=== PATIENT | female | born 1935 | race Caucasian/White ===

== ENCOUNTER 2017-03-23 14:50 | Inpatient (IN) | payer MEDICARE, BC ==
[2017-03-23] MEDS ORDERED: Sodium Chloride 0.9% 10 ML Syringe FLUSH PRN (15:56)
[2017-03-23] MEDS ORDERED: Sodium Chloride 0.9% 1,000 ML IV SCH (16:00)
--- NOTE | 2017-03-23 16:05 | EDM.PDOC ---
ED HPI GENERAL MEDICAL PROBLEM - General Chief Complaint: General Stated Complaint: MEDICAL Time Seen by Provider: 03/23/17 15:45 Source of Information: Reports: Patient, Family History Limitations: Reports: Altered Mental Status - History of Present Illness INITIAL COMMENTS - FREE TEXT/NARRATIVE: Anitha is an 82 year old female with a hx of dementia who presents to the ED today with her daughter for evaluation of decreased alertness and difficulty with ambulation and frequent falls. Patient resides in a memory care unit and is typically able to ambulate without any difficulty. Patient has fallen now 3 times since yesterday. Patient slid to ground from her recliner yesterday onto her knees, she then was found on the ground later yesterday and this morning. Uncertain what happened and patient cannot give a history or details of what happened. Patients shows no sign of trauma other than a knee abrasion on left. Patient is much more non-verbal than normal today. She had a fever of 101 yesterday but none reported this morning. Patient per her daughter seems uncertain as to how to ambulate, is not willing to put one foot in front of the other since last night. No cough/URI symptoms. No vomiting/diarrhea. Patient is DNR/DNI per her daughter. Duration: Day(s): (1) - Related Data Allergies Allergy/AdvReac Type Severity Reaction Status Date / Time No Known Allergies Allergy Verified 03/23/17 15:17 Home Meds: Home Meds Acetaminophen [Acetaminophen] 650 mg PO TID 03/23/17 [History] Alum Hydrox/Mag Hydrox/Simeth [Maalox Advanced] 15 ml PO Q6H PRN 03/23/17 [ History] Bimatoprost [LUMIGAN 0.01% Ophth Soln] 1 drop EYEBOTH BEDTIME 03/23/17 [History] Cyanocobalamin (Vitamin B-12) [Vitamin B-12] 1,000 mcg SL DAILY 03/23/17 [ History] DULoxetine [Cymbalta] 30 mg PO BEDTIME 03/23/17 [History] Donepezil HCl 10 mg PO BEDTIME 03/23/17 [History] Ferrous Sulfate [Ferrous Sulfate] 325 mg PO DAILY 03/23/17 [History] Folic Acid [Folic Acid] 1 mg PO DAILY 03/23/17 [History] Gabapentin [Neurontin] 300 mg PO BID 03/23/17 [History] Lactose-Reduced Food [Ensure] 1 can PO BID 03/23/17 [History] Magnesium Hydroxide [Milk of Magnesia] 15 ml PO DAILY PRN 03/23/17 [History] Memantine [Namenda] 10 mg PO BID 03/23/17 [History] Mirtazapine [Mirtazapine] 15 mg PO BEDTIME 03/23/17 [History] NIFEdipine [Adalat cc] 60 mg PO DAILY 03/23/17 [History] Naproxen Sodium 220 mg PO BID 03/23/17 [History] OLANZapine [Olanzapine] 5 mg PO BEDTIME 03/23/17 [History] Polyethylene Glycol 3350 [MiraLAX] 17 gm PO DAILY PRN 03/23/17 [History] Triamcinolone Acetonide [Triamcinolone Acetonide 0.1% Crm] 1 gm TOP BID PRN [History] traZODone HCl [Trazodone HCl] 50 mg PO BEDTIME PRN 03/23/17 [History] Past Medical History Gastrointestinal History: Reports: GERD Musculoskeletal History: Reports: Back Pain, Chronic, Osteoarthritis 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, CVA, TIA - Past Surgical History GI Surgical History: Reports: Cholecystectomy Female Surgical History: Reports: Hysterectomy Social & Family History - Tobacco Use Smoking Status *Q: Never Smoker ED ROS GENERAL - Review of Systems Review Of Systems: See Below Constitutional: Reports: Weakness HEENT: Reports: No Symptoms Respiratory: Reports: No Symptoms Cardiovascular: Reports: No Symptoms Endocrine: Reports: No Symptoms GI/Abdominal: Reports: No Symptoms : Reports: No Symptoms Musculoskeletal: Reports: No Symptoms Skin: Reports: Other (knee abrasion) Neurological: Reports: Difficulty Walking, Gait Disturbance Psychiatric: Reports: Other (worsening confusion) Hematologic/Lymphatic: Reports: No Symptoms ED EXAM, GENERAL - Physical Exam Exam: See Below Exam Limited By: Other (Dementia) Eye Exam: Bilateral Eye: EOMI, PERRL Ears: Normal External Exam, Normal TMs Throat/Mouth: Normal Oropharynx Head: Atraumatic Neck: Normal Inspection, Supple, Non-Tender Respiratory/Chest: No Respiratory Distress, Lungs Clear Cardiovascular: Regular Rate, Rhythm, No Murmur GI/Abdominal: Normal Bowel Sounds, Soft, Non-Tender (Female) Exam: Deferred Rectal (Female) Exam: Deferred Back Exam: Other (severe scoliosis/kyphosis) Neurological: Alert, Confused, Abnormal Gait, Other (not able to lift right lef off of bed when asked. No arm drift, able to raise left leg. No facial droop) Skin Exam: Other (2 cm abrasion to left knee) Lymphatic: No Adenopathy EKG INTERPRETATION EKG Date: 03/23/17 Time: 16:20 Rhythm: NSR [place]: LAD-Left [place] Deviation P-Wave: Present QRS: Normal ST-T: Normal QT: Normal Course - Vital Signs Text/Narrative:: Anitha is an 82 year old female with a hx of dementia who presents to the ED today with her daughter for evaluation of increased difficulty with ambulation, fever yesterday, and increased confusion. Please refer to HPI and focused exam. Patient on exam here is well hydrated, she is pale. She has no signs of significant trauma, small abrasion to left knee. No grimacing with pelvic rock or extremity/back exam. Concerns for sepsis given hx of fever here although on arrival afebrile and normotensive. CVA on differential as well given difficulty with ambulation. Gross NIH is 0, patient difficult to examine overall. PIV established and patient was given 1 liter NS followed by 125 ml/ hr. CT scan of head obtained which is negative for any acute intracranial abnormality. CXR obtained to rule out infiltrate although unlikely given lack of URI symptoms and is negative. CBC returns with WBC of 29 with a left shift. HGB stable at 10.6. CMP returns with sodium of 139, potassium of 3.5, mildly elevated creatinine of 1.2, and glucose of 131. EKG is negative for any acute ischemic findings. Troponin undetectable. Cath UA returns positive for infection, UC pending. Will treat with IV Rocephin. This may be causing patient 's symptoms, we will admit her and continue to monitor her status. Patient is DNR/DNI. Dr. Amaro, hospitalist notified of patient and will be down to assess and write admission orders. Patient will be admitted in stable condition. Knee xray was negative for fracture (left). Last Recorded V/S: Last Vital Signs Temp 37.7 C 03/23/17 15:32 Pulse 86 03/23/17 17:08 Resp 18 03/23/17 17:08 BP 112/61 03/23/17 17:08 Pulse Ox 98 03/23/17 17:08 - Orders/Labs/Meds Orders: Active Orders 24 hr Category Date Time Status Patient Status Manage Transfer [TRANSFER] Routine ADT 03/23/17 17:54 Active EKG Documentation Completion [RC] ASDIRECTED Care 03/23/17 15:59 Active Peripheral IV Care [RC] . DIRECTED Care 03/23/17 15:56 Active Chest 1V Frontal [CR] Stat Exams 03/23/17 15:58 Taken Head wo Cont [CT] Stat Exams 03/23/17 15:57 Taken Knee 3V Lt [CR] Stat Exams 03/23/17 15:58 Taken CULTURE URINE [RM] Stat Lab 03/23/17 16:30 Received Sodium Chloride 0.9% [Normal Saline] 1,000 ml Med 03/23/17 16:00 Active IV ASDIRECTED Sodium Chloride 0.9% [Saline Flush] Med 03/23/17 15:56 Active 10 ml FLUSH ASDIRECTED PRN Peripheral IV Insertion Adult [OM.PC] Routine Oth 03/23/17 15:56 Ordered Resuscitation Status Routine Resus Stat 03/23/17 17:56 Ordered EKG 12 Lead [EK] Stat Ther 03/23/17 15:59 Ordered Medication Orders Sodium Chloride (Normal Saline) 1,000 mls @ 125 mls/hr IV ASDIRECTED JA Sodium Chloride (Saline Flush) 10 ml FLUSH ASDIRECTED PRN PRN Reason: Keep Vein Open Last Admin: 03/23/17 17:34 Dose: 10 ml Labs: Laboratory Tests 03/23/17 03/23/17 03/23/17 Range/Units 16:14 16:14 16:14 WBC 29.0 H (4.5-11.0) K/uL RBC 3.60 (3.30-5.50) M/uL Hgb 10.6 L (12.0-15.0) g/dL Hct 32.6 L (36.0-48.0) % MCV 91 (80-98) fL MCH 29 (27-31) pg MCHC 33 (32-36) % Plt Count 455 H (150-400) K/uL Neut % (Auto) 84 H (36-66) % Lymph % (Auto) 6 L (24-44) % [place] % (Auto) 10 H (2-6) % Eos % (Auto) 0 L (2-4) % Baso % (Auto) 0 (0-1) % Sodium 139 L (140-148) mmol/L Potassium 3.5 L (3.6-5.2) mmol/L Chloride 101 (100-108) mmol/L Carbon Dioxide 30 (21-32) mmol/L Anion Gap 11.5 (5.0-14.0) mmol/L BUN 16 D (7-18) mg/dL Creatinine 1.2 H (0.6-1.0) mg/dL Est Cr Clr Drug Dosing 32.29 mL/min Estimated GFR (MDRD) 43 L (>60) Glucose 131 H (74-106) mg/dL Lactic Acid 1.9 (0.4-2.0) mmol/L Calcium 8.6 (8.5-10.1) mg/dL Total Bilirubin 0.2 (0.2-1.0) mg/dL AST 21 (15-37) U/L ALT 21 (12-78) U/L Alkaline Phosphatase 100 (46-116) U/L Troponin I (0.000-0.056) ng/mL Total Protein 6.8 (6.4-8.2) g/dL Albumin 2.6 L (3.4-5.0) g/dL Globulin 4.2 H (2.3-3.5) g/dL Albumin/Globulin Ratio 0.6 L (1.2-2.2) Urine Color Urine Appearance Urine pH (4.5-8.0) Ur Specific [place] (1.008-1.030) Urine Protein (NEGATIVE) mg/dL Urine Glucose (UA) (NEGATIVE) mg/dL Urine Ketones (NEGATIVE) mg/dL Urine Occult Blood (NEGATIVE) Urine Nitrite (NEGATIVE) Urine Bilirubin (NEGATIVE) Urine Urobilinogen (NORMAL) mg/dL Ur Leukocyte Esterase (NEGATIVE) Urine RBC (0-5) Urine WBC (0-5) Ur Epithelial Cells Amorphous Sediment Urine Bacteria Urine Mucus 03/23/17 03/23/17 Range/Units 16:14 16:49 WBC (4.5-11.0) K/uL RBC (3.30-5.50) M/uL Hgb (12.0-15.0) g/dL Hct (36.0-48.0) % MCV (80-98) fL MCH (27-31) pg MCHC (32-36) % Plt Count (150-400) K/uL Neut % (Auto) (36-66) % Lymph % (Auto) (24-44) % [place] % (Auto) (2-6) % Eos % (Auto) (2-4) % Baso % (Auto) (0-1) % Sodium (140-148) mmol/L Potassium (3.6-5.2) mmol/L Chloride (100-108) mmol/L Carbon Dioxide (21-32) mmol/L Anion Gap (5.0-14.0) mmol/L BUN (7-18) mg/dL Creatinine (0.6-1.0) mg/dL Est Cr Clr Drug Dosing mL/min Estimated GFR (MDRD) (>60) Glucose (74-106) mg/dL Lactic Acid (0.4-2.0) mmol/L Calcium (8.5-10.1) mg/dL Total Bilirubin (0.2-1.0) mg/dL AST (15-37) U/L ALT (12-78) U/L Alkaline Phosphatase (46-116) U/L Troponin I < 0.017 (0.000-0.056) ng/mL Total Protein (6.4-8.2) g/dL Albumin (3.4-5.0) g/dL Globulin (2.3-3.5) g/dL Albumin/Globulin Ratio (1.2-2.2) Urine Color Yellow Urine Appearance Clear Urine pH 5.0 (4.5-8.0) Ur Specific [place] 1.015 (1.008-1.030) Urine Protein Trace (NEGATIVE) mg/dL Urine Glucose (UA) Normal (NEGATIVE) mg/dL Urine Ketones Negative (NEGATIVE) mg/dL Urine Occult Blood Negative (NEGATIVE) Urine Nitrite Negative (NEGATIVE) Urine Bilirubin Negative (NEGATIVE) Urine Urobilinogen Normal (NORMAL) mg/dL Ur Leukocyte Esterase Moderate (NEGATIVE) Urine RBC 0-5 (0-5) Urine WBC 10-20 H (0-5) Ur Epithelial Cells Rare Amorphous Sediment Few Urine Bacteria Many Urine Mucus Few Meds: Medications Generic Name Dose Route Start Last Admin Trade Name Freq PRN Reason Stop Dose Admin Sodium Chloride 1,000 mls @ 125 mls/hr 03/23/17 16:00 Normal Saline IV ASDIRECTED JA Sodium Chloride 10 ml 03/23/17 15:56 03/23/17 17:34 Saline Flush FLUSH 10 ml ASDIRECTED PRN Administration Keep Vein Open Discontinued Medications Generic Name Dose Route Start Last Admin Trade Name Freq PRN Reason Stop Dose Admin Sodium Chloride 1,000 mls @ 999 mls/hr 03/23/17 17:08 03/23/17 17:34 Normal Saline IV 03/23/17 18:08 999 mls/hr .BOLUS ONE Administration Ceftriaxone Sodium 1 gm/ 50 mls @ 100 mls/hr 03/23/17 17:18 03/23/17 17:34 Sodium Chloride IV 03/23/17 17:47 100 mls/hr ONETIME ONE Administration Departure - Departure Time of Disposition: 19:00 Disposition: Admitted As Inpatient 68 Condition: Good Clinical Impression: UTI, Urinary tract infectious disease, Frequent falls, Alteration consciousness - Discharge Information Forms: ED Department Discharge - My Orders Last 24 Hours: My Active Orders 03/23/17 15:56 Peripheral IV Care [RC] . DIRECTED Sodium Chloride 0.9% [Saline Flush] 10 ml FLUSH ASDIRECTED PRN Peripheral IV Insertion Adult [OM.PC] Routine 03/23/17 15:57 Head wo Cont [CT] Stat 03/23/17 15:58 Chest 1V Frontal [CR] Stat Knee 3V Lt [CR] Stat 03/23/17 15:59 EKG Documentation Completion [RC] ASDIRECTED EKG 12 Lead [EK] Stat 03/23/17 16:00 Sodium Chloride 0.9% [Normal Saline] 1,000 ml IV ASDIRECTED 03/23/17 16:30 CULTURE URINE [RM] Stat - Assessment/Plan Last 24 Hours: My Active Orders 03/23/17 15:56 Peripheral IV Care [RC] . DIRECTED Sodium Chloride 0.9% [Saline Flush] 10 ml FLUSH ASDIRECTED PRN Peripheral IV Insertion Adult [OM.PC] Routine 03/23/17 15:57 Head wo Cont [CT] Stat 03/23/17 15:58 Chest 1V Frontal [CR] Stat Knee 3V Lt [CR] Stat 03/23/17 15:59 EKG Documentation Completion [RC] ASDIRECTED EKG 12 Lead [EK] Stat 03/23/17 16:00 Sodium Chloride 0.9% [Normal Saline] 1,000 ml IV ASDIRECTED 03/23/17 16:30 CULTURE URINE [RM] Stat
[2017-03-23] MEDS ORDERED: Sodium Chloride 0.9% 1,000 ML IV ONE (17:08)
[2017-03-23] MEDS ORDERED: cefTRIAXone 1 GM in Sodium Chloride 0.9% 50 ML IV ONE (17:18)
--- NOTE | 2017-03-23 18:12 | PCM.HP ---
H&P History of Present Illness - General Date of Service: 03/23/17 Admit Problem/Dx: Admission Diagnosis/Problem Admission Diagnosis/Problem Acute cystitis Source of Information: Patient, Family, Provider History Limitations: Reports: Altered Mental Status (Dementia) - History of Present Illness Initial Comments - Free Text/Narative: Anitha presents to the emergency room today after a third fall in 24 hours. She is unable to provide any history at this time because of dementia and history is gathered through her daughter as well as emergency room personnel. Per report the patient had been in her usual state of health 3 days prior to admission. Over the past 24 hours she has had progressive weakness and has fallen out of her chair twice and out of bed once this morning. She has appeared to favor her left knee and does not seem to want to put weight on it. She does not respond when asked if she is having pain in her knee. She mumbles something that I can understand when asked about abdominal pain and chest pain. There has been no report of diarrhea or cough from the memory care unit where she resides. They did notice a fever to 101 yesterday. Workup in the emergency room has been remarkable for a white blood cell count of 29,000 as well as a probable urinary tract infection. She is unable to stand and bear weight and is not safe for outpatient management at this time. - Related Data Allergies/Adverse Reactions: Allergies Allergy/AdvReac Type Severity Reaction Status Date / Time No Known Allergies Allergy Verified 03/23/17 15:17 Home Medications: Home Meds Acetaminophen [Acetaminophen] 650 mg PO TID 03/23/17 [History] Alum Hydrox/Mag Hydrox/Simeth [Maalox Advanced] 15 ml PO Q6H PRN 03/23/17 [ History] Bimatoprost [LUMIGAN 0.01% Ophth Soln] 1 drop EYEBOTH BEDTIME 03/23/17 [History] Cyanocobalamin (Vitamin B-12) [Vitamin B-12] 1,000 mcg SL DAILY 03/23/17 [ History] DULoxetine [Cymbalta] 30 mg PO BEDTIME 03/23/17 [History] Donepezil HCl 10 mg PO BEDTIME 03/23/17 [History] Ferrous Sulfate [Ferrous Sulfate] 325 mg PO DAILY 03/23/17 [History] Folic Acid [Folic Acid] 1 mg PO DAILY 03/23/17 [History] Gabapentin [Neurontin] 300 mg PO BID 03/23/17 [History] Lactose-Reduced Food [Ensure] 1 can PO BID 03/23/17 [History] Magnesium Hydroxide [Milk of Magnesia] 15 ml PO DAILY PRN 03/23/17 [History] Memantine [Namenda] 10 mg PO BID 03/23/17 [History] Mirtazapine [Mirtazapine] 15 mg PO BEDTIME 03/23/17 [History] NIFEdipine [Adalat cc] 60 mg PO DAILY 03/23/17 [History] Naproxen Sodium 220 mg PO BID 03/23/17 [History] OLANZapine [Olanzapine] 5 mg PO BEDTIME 03/23/17 [History] Polyethylene Glycol 3350 [MiraLAX] 17 gm PO DAILY PRN 03/23/17 [History] Triamcinolone Acetonide [Triamcinolone Acetonide 0.1% Crm] 1 gm TOP BID PRN [History] traZODone HCl [Trazodone HCl] 50 mg PO BEDTIME PRN 03/23/17 [History] Past Medical History Gastrointestinal History: Reports: GERD Musculoskeletal History: Reports: Back Pain, Chronic, Osteoarthritis 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, CVA, TIA - Past Surgical History GI Surgical History: Reports: Cholecystectomy Female Surgical History: Reports: Hysterectomy Social & Family History - Family History Neurological: Denies: Alzheimers Disease - Tobacco Use Smoking Status *Q: Never Smoker - Caffeine Use Caffeine Use: Reports: None - Alcohol Use Alcohol Use History: No - Recreational Drug Use Recreational Drug Use: No H&P Review of Systems - Review of Systems: Review Of Systems: Unable To Obtain (Due to her dementia the patient is not able to respond to questions from the review of systems) Exam - Exam Exam: See Below - Vital Signs Vital Signs: Last Vital Signs Temp 37.7 C 03/23/17 15:32 Pulse 86 03/23/17 17:08 Resp 18 03/23/17 17:08 BP 112/61 03/23/17 17:08 Pulse Ox 98 03/23/17 17:08 Weight: 61.235 kg - Exam Quality Assessment: No: Supplemental Oxygen General: Alert, Cooperative. No: Oriented, Mild Distress HEENT: Conjunctiva Clear. No: Mucosa Moist & [place] (dry), Scleral Icterus Neck: Supple, Trachea Midline. No: Lymphadenopathy, Thyromegaly Lungs: Clear to Auscultation, Normal Respiratory Effort Cardiovascular: Regular Rate, Regular Rhythm, Systolic Murmur Abdomen: Normal Bowel Sounds, Soft. No: Distention, Guarding, Tenderness Back Exam: Normal Inspection, Full Range of Motion Extremities: Normal Pulses, Other (1 cm abrasion left knee. No bleeding). No: Clubbing, Cyanosis, Edema Skin: Warm, Dry Neuro Extensive - Mental Status: Alert, Slow Response to Commands. No: Oriented x3 Neuro Extensive - Motor, Sensory, Reflexes: No: Dysarthria, Abnormal Motor, Tremor Psychiatric: Alert. No: Normal Affect (Flat affect) - Patient Data Lab Results Last 24 hrs: Laboratory Results - last 24 hr 03/23/17 03/23/17 03/23/17 Range/Units 16:14 16:14 16:14 WBC 29.0 H (4.5-11.0) K/uL RBC 3.60 (3.30-5.50) M/uL Hgb 10.6 L (12.0-15.0) g/dL Hct 32.6 L (36.0-48.0) % MCV 91 (80-98) fL MCH 29 (27-31) pg MCHC 33 (32-36) % Plt Count 455 H (150-400) K/uL Neut % (Auto) 84 H (36-66) % Lymph % (Auto) 6 L (24-44) % [place] % (Auto) 10 H (2-6) % Eos % (Auto) 0 L (2-4) % Baso % (Auto) 0 (0-1) % Sodium 139 L (140-148) mmol/L Potassium 3.5 L (3.6-5.2) mmol/L Chloride 101 (100-108) mmol/L Carbon Dioxide 30 (21-32) mmol/L Anion Gap 11.5 (5.0-14.0) mmol/L BUN 16 D (7-18) mg/dL Creatinine 1.2 H (0.6-1.0) mg/dL Est Cr Clr Drug Dosing 32.29 mL/min Estimated GFR (MDRD) 43 L (>60) Glucose 131 H (74-106) mg/dL Lactic Acid 1.9 (0.4-2.0) mmol/L Calcium 8.6 (8.5-10.1) mg/dL Total Bilirubin 0.2 (0.2-1.0) mg/dL AST 21 (15-37) U/L ALT 21 (12-78) U/L Alkaline Phosphatase 100 (46-116) U/L Troponin I (0.000-0.056) ng/mL Total Protein 6.8 (6.4-8.2) g/dL Albumin 2.6 L (3.4-5.0) g/dL Globulin 4.2 H (2.3-3.5) g/dL Albumin/Globulin Ratio 0.6 L (1.2-2.2) Urine Color Urine Appearance Urine pH (4.5-8.0) Ur Specific [place] (1.008-1.030) Urine Protein (NEGATIVE) mg/dL Urine Glucose (UA) (NEGATIVE) mg/dL Urine Ketones (NEGATIVE) mg/dL Urine Occult Blood (NEGATIVE) Urine Nitrite (NEGATIVE) Urine Bilirubin (NEGATIVE) Urine Urobilinogen (NORMAL) mg/dL Ur Leukocyte Esterase (NEGATIVE) Urine RBC (0-5) Urine WBC (0-5) Ur Epithelial Cells Amorphous Sediment Urine Bacteria Urine Mucus 03/23/17 03/23/17 Range/Units 16:14 16:49 WBC (4.5-11.0) K/uL RBC (3.30-5.50) M/uL Hgb (12.0-15.0) g/dL Hct (36.0-48.0) % MCV (80-98) fL MCH (27-31) pg MCHC (32-36) % Plt Count (150-400) K/uL Neut % (Auto) (36-66) % Lymph % (Auto) (24-44) % [place] % (Auto) (2-6) % Eos % (Auto) (2-4) % Baso % (Auto) (0-1) % Sodium (140-148) mmol/L Potassium (3.6-5.2) mmol/L Chloride (100-108) mmol/L Carbon Dioxide (21-32) mmol/L Anion Gap (5.0-14.0) mmol/L BUN (7-18) mg/dL Creatinine (0.6-1.0) mg/dL Est Cr Clr Drug Dosing mL/min Estimated GFR (MDRD) (>60) Glucose (74-106) mg/dL Lactic Acid (0.4-2.0) mmol/L Calcium (8.5-10.1) mg/dL Total Bilirubin (0.2-1.0) mg/dL AST (15-37) U/L ALT (12-78) U/L Alkaline Phosphatase (46-116) U/L Troponin I < 0.017 (0.000-0.056) ng/mL Total Protein (6.4-8.2) g/dL Albumin (3.4-5.0) g/dL Globulin (2.3-3.5) g/dL Albumin/Globulin Ratio (1.2-2.2) Urine Color Yellow Urine Appearance Clear Urine pH 5.0 (4.5-8.0) Ur Specific [place] 1.015 (1.008-1.030) Urine Protein Trace (NEGATIVE) mg/dL Urine Glucose (UA) Normal (NEGATIVE) mg/dL Urine Ketones Negative (NEGATIVE) mg/dL Urine Occult Blood Negative (NEGATIVE) Urine Nitrite Negative (NEGATIVE) Urine Bilirubin Negative (NEGATIVE) Urine Urobilinogen Normal (NORMAL) mg/dL Ur Leukocyte Esterase Moderate (NEGATIVE) Urine RBC 0-5 (0-5) Urine WBC 10-20 H (0-5) Ur Epithelial Cells Rare Amorphous Sediment Few Urine Bacteria Many Urine Mucus Few Result Diagrams: 03/23/17 16:14 03/23/17 16:14 Imaging Impressions Last 24 hrs: Chest x-ray - images personally reviewed -lungs are clear with no evidence for mass, infiltrate, effusion *Q Meaningful Use (ADM) - VTE *Q VTE Criteria *Q: - VTE Risk Assess *Q Each Risk Factor Represents 1 Point: None Total Score 1 Point Risk Factors: 0 Each Risk Factor Represents 2 Points: None Total Score 2 Point Risk Factors: 0 Each Risk Factor Represents 3 Points: Age 75 Years or Greater Total Score 3 Point Risk Factors: 3 Each Risk Factor Represents 5 Points: None Total Score 5 Point Risk Factors: 0 Venous Thromboembolism Risk Factor Score *Q: 3 - Stroke *Q Stroke Criteria *Q: - AMI *Q AMI Criteria *Q: - Problem List (1) Acute cystitis without hematuria SNOMED Code(s): 48194768 ICD Code: N30.00 - ACUTE CYSTITIS WITHOUT HEMATURIA Status: Acute Current Visit: Yes (2) Dementia with behavioral disturbance SNOMED Code(s): 6756977662161 ICD Code: F03.91 - UNSPECIFIED DEMENTIA WITH BEHAVIORAL DISTURBANCE Status : Chronic Current Visit: Yes Qualifiers: Dementia type: Alzheimer's disease Alzheimer's disease onset: late-onset Qualified Code(s): G30.1 - Alzheimer's disease with late onset; F02.81 - Dementia in other diseases classified elsewhere with behavioral disturbance Problem List Initiated/Reviewed/Updated: Yes Orders Last 24hrs: Active Orders 24 hr Category Date Time Status Patient Status Manage Transfer [TRANSFER] Routine ADT 03/23/17 17:54 Active EKG Documentation Completion [RC] ASDIRECTED Care 03/23/17 15:59 Active Peripheral IV Care [RC] . DIRECTED Care 03/23/17 15:56 Active Chest 1V Frontal [CR] Stat Exams 03/23/17 15:58 Taken Head wo Cont [CT] Stat Exams 03/23/17 15:57 Taken Knee 3V Lt [CR] Stat Exams 03/23/17 15:58 Taken CULTURE URINE [RM] Stat Lab 03/23/17 16:30 Received Sodium Chloride 0.9% [Normal Saline] 1,000 ml Med 03/23/17 17:08 Active IV .BOLUS Sodium Chloride 0.9% [Normal Saline] 1,000 ml Med 03/23/17 16:00 Active IV ASDIRECTED Sodium Chloride 0.9% [Saline Flush] Med 03/23/17 15:56 Active 10 ml FLUSH ASDIRECTED PRN Peripheral IV Insertion Adult [OM.PC] Routine Oth 03/23/17 15:56 Ordered Resuscitation Status Routine Resus Stat 03/23/17 17:56 Ordered EKG 12 Lead [EK] Stat Ther 03/23/17 15:59 Ordered Medication Orders Sodium Chloride (Normal Saline) 1,000 mls @ 125 mls/hr IV ASDIRECTED JA Sodium Chloride (Normal Saline) 1,000 mls @ 999 mls/hr IV .BOLUS ONE Stop: 03/23/17 18:08 Last Admin: 03/23/17 17:34 Dose: 999 mls/hr Sodium Chloride (Saline Flush) 10 ml FLUSH ASDIRECTED PRN PRN Reason: Keep Vein Open Last Admin: 03/23/17 17:34 Dose: 10 ml Assessment/Plan Comment:: Assessment and plan - Acute cystitis with generalized weakness - A significant leukocytosis and a moderate evidence for urinary tract infection. No other obvious source for infection at this time. Patient is weak and not safe on her feet and therefore not safe for outpatient management. She has received antibiotics in the emergency room and is receiving IV fluids. -Continue ceftriaxone -IV fluids overnight -Follow-up urine culture acetaminophen as needed for fever- Alzheimer's dementia with behavioral disturbance - No active issues with behaviors at this time. Patient is on a Friday medications to help manage behaviors at this time. -Continue home medications -Melatonin at bedtime -low-dose Haldol if she has any behavior issues Maintenance issues - - DVT prophylaxis - mechanical - GI prophylaxis - not indicated - Nutrition - Regular diet - Downs catheter - not indicated CODE STATUS - DNR/DNI Admission justification - This patient will be admitted for inpatient services and is medically appropriate meeting medical necessity for inpatient admission as outlined in my documentation. I reasonably expect the patient will require inpatient services that span a period time over 2 midnights. I reasonably expect this patient to be discharged or transferred within 96 hours [facility]. Disposition - anticipate discharge back to the [facility] after the hospital stay Primary care physician - Esperanza Amaro M.D.
[2017-03-23] MEDS ORDERED: Magnesium Hydroxide 400 MG/5 ML Susp 30 ML Cup PO PRN (18:52)
[2017-03-23] MEDS ORDERED: Acetaminophen 325 MG Tab PO PRN (18:52)
[2017-03-23] MEDS ORDERED: Ondansetron 4 MG Tab.DIS PO PRN (18:52)
[2017-03-23] MEDS ORDERED: Polyethylene Glycol 3350 Powder 238 GM Bot PO PRN (18:52)
[2017-03-23] MEDS ORDERED: Polyethylene Glycol 3350 Powder 17 GM Packet PO PRN (18:52)
[2017-03-23] MEDS: OLANZapine 5 MG Tab PO SCH (20:52)
[2017-03-23] MEDS: Mirtazapine 15 MG Tab PO SCH (20:53)
[2017-03-23] MEDS: Donepezil 10 MG Tab PO SCH (20:58)
[2017-03-23] MEDS: DULoxetine 30 MG Cap PO SCH (20:58)
[2017-03-23] MEDS: Gabapentin 300 MG Cap PO SCH (21:00)
[2017-03-23] MEDS: Memantine 10 MG Tab PO SCH (21:00)
[2017-03-23] MEDS: Melatonin 3 MG Tab PO SCH (21:39)
[2017-03-23] MEDS: Acetaminophen 325 MG Tab PO SCH (21:40)
[2017-03-23] MEDS: Sodium Chloride 0.9% 1,000 ML IV SCH (22:43)
[2017-03-24] MEDS: Sodium Chloride 0.9% 1,000 ML IV SCH (06:49)
[2017-03-24] MEDS ORDERED: Potassium Chloride 20 MEQ Tab.ER PO ONE (09:00)
--- NOTE | 2017-03-24 09:19 | CR ---
Knee 3V Lt HISTORY: Trauma. COMPARISON: None FINDINGS: Mild degenerative change with marginal osteophyte formation. No fracture or effusion.
--- NOTE | 2017-03-24 09:21 | CR ---
Chest 1V Frontal HISTORY: Possible pneumonia. COMPARISON: None FINDINGS: Rotated film. There is some density in the medial left lung base with nodular appearance. This measures greater than 1 cm. This could represent some infiltrate developing nodule not excluded . The mid and upper lung zones are clear. Cardiac size normal. No effusions. Impression: Nodular density medial left lung base could represent inflammatory process. Would suggest follow-up upright PA lateral chest film. If this nodular density persists recommend CT scan of the chest to fu rther evaluate.
[2017-03-24] MEDS: NIFEdipine 30 MG Tab.ER PO SCH (10:17)
[2017-03-24] MEDS: Ferrous Sulfate 325 MG Tab PO SCH (10:17)
[2017-03-24] MEDS: Gabapentin 300 MG Cap PO SCH ×2 (10:17→21:14)
[2017-03-24] MEDS: Cyanocobalamin (Vitamin B12) 1,000 MCG Tab SL SCH (10:18)
[2017-03-24] MEDS: Memantine 10 MG Tab PO SCH ×2 (10:18→21:14)
[2017-03-24] MEDS: Folic Acid 1 MG Tab PO SCH (10:19)
[2017-03-24] MEDS: Acetaminophen 325 MG Tab PO SCH ×3 (10:21→21:14)
--- NOTE | 2017-03-24 12:30 | PCM.PN ---
- General Info Date of Service: 03/24/17 Functional Status: Reports: tolerating diet - Review of Systems General: Reports: Weakness. Denies: Fever, Chills Pulmonary: Reports: no symptoms Cardiovascular: Reports: No Symptoms Gastrointestinal: Reports: No symptoms Genitourinary: Reports: no symptoms Psychiatric: Reports: confusion Systems Review Comment:: Ms. Flores is an 82-year-old woman who is admitted through the emergency department yesterday with increased weakness and confusion secondary to a urinary tract infection. Cultures are pending at this time, vital signs have been stable and she has been afebrile thus far today. Daughter who is with her today thinks that she is more alert and seems to be somewhat stronger. Patient is unable to provide significant history concerning recent symptoms or events because of severe dementia. - Patient Data Vitals - most recent: Last Vital Signs Temp 98.5 F 03/24/17 11:50 Pulse 78 03/24/17 11:50 Resp 16 03/24/17 11:50 BP 95/54 L 03/24/17 11:50 Pulse Ox 92 L 03/24/17 11:50 Weight - most recent: 138 lb 11.191 oz I&O - last 24 hours: Intake & Output 03/23/17 03/24/17 03/24/17 22:59 06:59 14:59 Intake Total 1175 200 Output Total 450 Balance 725 200 Lab Results last 24 hrs: Laboratory Results - last 24 hr 03/24/17 03/24/17 Range/Units 05:50 05:50 WBC 25.9 H (4.5-11.0) K/uL RBC 3.26 L (3.30-5.50) M/uL Hgb 9.6 L (12.0-15.0) g/dL Hct 29.8 L (36.0-48.0) % MCV 91 (80-98) fL MCH 29 (27-31) pg MCHC 32 (32-36) % Plt Count 421 H (150-400) K/uL Sodium 142 (140-148) mmol/L Potassium 3.4 L (3.6-5.2) mmol/L Chloride 107 (100-108) mmol/L Carbon Dioxide 30 (21-32) mmol/L Anion Gap 8.4 (5.0-14.0) mmol/L BUN 13 (7-18) mg/dL Creatinine 0.9 (0.6-1.0) mg/dL Est Cr Clr Drug Dosing 43.36 mL/min Estimated GFR (MDRD) > 60 (>60) Glucose 104 (74-106) mg/dL Calcium 8.3 L (8.5-10.1) mg/dL Med Orders - Current: Current Medications Acetaminophen (Tylenol) 650 mg PO TID [facility] Last Admin: 03/24/17 10:21 Dose: 650 mg Acetaminophen (Tylenol) 650 mg PO Q4H PRN PRN Reason: Pain (Mild 1-3)/fever Cyanocobalamin (Vitamin B12) 1,000 mcg SL DAILY [facility] Last Admin: 03/24/17 10:18 Dose: 1,000 mcg Donepezil HCl (Aricept) 10 mg PO BEDTIME [facility] Last Admin: 03/23/17 20:58 Dose: 10 mg Duloxetine HCl (Cymbalta) 30 mg PO BEDTIME [facility] Last Admin: 03/23/17 20:58 Dose: 30 mg Ferrous Sulfate (Ferrous Sulfate) 325 mg PO DAILY [facility] Last Admin: 03/24/17 10:17 Dose: 325 mg Folic Acid (Folic Acid) 1 mg PO DAILY [facility] Last Admin: 03/24/17 10:19 Dose: 1 mg Gabapentin (Neurontin) 300 mg PO BID [facility] Last Admin: 03/24/17 10:17 Dose: 300 mg Ceftriaxone Sodium 1 gm/ (Sodium Chloride) 50 mls @ 100 mls/hr IV Q24H [facility] Latanoprost (Xalatan 0.005% Ophth Soln) 0 ml EYEBOTH BEDTIME [facility] Magnesium Hydroxide (Milk Of Magnesia) 30 ml PO Q12H PRN PRN Reason: Constipation Melatonin (Melatonin) 9 mg PO BEDTIME [facility] Last Admin: 03/23/17 21:39 Dose: 9 mg Memantine (Namenda) 10 mg PO BID [facility] Last Admin: 03/24/17 10:18 Dose: 10 mg Mirtazapine (Remeron) 15 mg PO BEDTIME [facility] Last Admin: 03/23/17 20:53 Dose: 15 mg Naproxen (Naproxen Sodium) 220 mg PO BID [facility] Last Admin: 03/24/17 10:19 Dose: 220 mg Nifedipine (Procardia Xl) 60 mg PO DAILY [facility] Last Admin: 03/24/17 10:17 Dose: 60 mg Olanzapine (Zyprexa) 5 mg PO BEDTIME [facility] Last Admin: 03/23/17 20:52 Dose: 5 mg Ondansetron HCl (Zofran Odt) 4 mg PO Q6H PRN PRN Reason: Nausea able to take PO Polyethylene Glycol (Miralax) 17 gm PO DAILY PRN PRN Reason: Constipation Senna/Docusate Sodium (Senna Plus) 1 tab PO BID PRN PRN Reason: Constipation Sodium Chloride (Saline Flush) 10 ml FLUSH ASDIRECTED PRN PRN Reason: Keep Vein Open Last Admin: 03/23/17 17:34 Dose: 10 ml Discontinued Medications Sodium Chloride (Normal Saline) 1,000 mls @ 125 mls/hr IV ASDIRECTED JA Sodium Chloride (Normal Saline) 1,000 mls @ 999 mls/hr IV .BOLUS ONE Stop: 03/23/17 18:08 Last Admin: 03/23/17 17:34 Dose: 999 mls/hr Ceftriaxone Sodium 1 gm/ (Sodium Chloride) 50 mls @ 100 mls/hr IV ONETIME ONE Stop: 03/23/17 17:47 Last Admin: 03/23/17 17:34 Dose: 100 mls/hr Sodium Chloride (Normal Saline) 1,000 mls @ 125 mls/hr IV ASDIRECTED [facility] Last Admin: 03/24/17 06:49 Dose: 125 mls/hr Potassium Chloride (Klor-Con M20) 40 meq PO ONETIME ONE Stop: 03/24/17 09:01 Last Admin: 03/24/17 10:15 Dose: 40 meq - Exam Quality Assessment: DVT prophylaxis General: alert, cooperative, no acute distress Lungs: Clear to auscultation, Normal respiratory effort Cardiovascular: Regular Rate, Regular Rhythm, No Murmurs Abdomen: bowel sounds present, soft, no tenderness, no distension Extremities: no edema Skin: warm, dry, intact - Problem List Review Problem List Initiated/Reviewed/Updated: Yes - My Orders Last 24 Hours: My Active Orders 03/24/17 12:27 Convert IV to Saline Lock [OM.PC] Routine 03/25/17 05:00 BASIC METABOLIC PANEL,BMP [CHEM] Timed CBC WITH AUTO DIFF [HEME] Timed - Plan Plan:: Assessment and plan - Acute cystitis with generalized weakness - modest improvement in white blood cell count since admission. Vital signs have been stable and she has remained afebrile. Overall strength and alertness seemed to be improved from admission. -Continue ceftriaxone -Saline lock IV -Follow-up urine culture acetaminophen as needed for fever- Alzheimer's dementia with behavioral disturbance - No active issues with behaviors at this time. Patient is on a Friday medications to help manage behaviors at this time. -Continue home medications -Melatonin at bedtime -low-dose Haldol if she has any behavior issues Maintenance issues - - DVT prophylaxis - mechanical - GI prophylaxis - not indicated - Nutrition - Regular diet - Downs catheter - not indicated CODE STATUS - DNR/DNI Admission justification - This patient will be admitted for inpatient services and is medically appropriate meeting medical necessity for inpatient admission as outlined in my documentation. I reasonably expect the patient will require inpatient services that span a period time over 2 midnights. I reasonably expect this patient to be discharged or transferred within 96 hours [facility] Disposition - anticipate discharge back to the [facility] after the hospital stay Primary care physician - Esperanza New
[2017-03-24] MEDS: Latanoprost 0.005% Ophth Soln 2.5 ML Bottle EYEBOTH SCH ×2 (15:02→21:14)
[2017-03-24] MEDS ORDERED: cefTRIAXone 1 GM in Sodium Chloride 0.9% 50 ML IV SCH (17:00)
[2017-03-24] MEDS: Donepezil 10 MG Tab PO SCH (21:13)
[2017-03-24] MEDS: Melatonin 3 MG Tab PO SCH (21:13)
[2017-03-24] MEDS: DULoxetine 30 MG Cap PO SCH (21:13)
[2017-03-24] MEDS: Mirtazapine 15 MG Tab PO SCH (21:14)
[2017-03-24] MEDS: OLANZapine 5 MG Tab PO SCH (21:14)
[2017-03-25 07:15] VITALS: BP 120/68
[2017-03-25] MEDS: Folic Acid 1 MG Tab PO SCH (08:48)
[2017-03-25] MEDS: NIFEdipine 30 MG Tab.ER PO SCH (08:48)
[2017-03-25] MEDS: Cyanocobalamin (Vitamin B12) 1,000 MCG Tab SL SCH (08:48)
[2017-03-25] MEDS: Gabapentin 300 MG Cap PO SCH (08:49)
[2017-03-25] MEDS: Acetaminophen 325 MG Tab PO SCH (08:49)
[2017-03-25] MEDS: Ferrous Sulfate 325 MG Tab PO SCH (08:49)
[2017-03-25] MEDS: Memantine 10 MG Tab PO SCH (08:49)
[2017-03-25] MEDS ORDERED: Sulfamethoxazole/Trimethoprim 800-160 MG Tab PO SCH (09:30)
[2017-03-25] MEDS ORDERED: Potassium Chloride 20 MEQ Tab.ER PO ONE (09:45)
--- NOTE | 2017-03-25 10:53 | PCM.DCSUM1 ---
Discharge Summary - Hospital Course Brief History: Ms. Flores is an 82-year-old woman who is admitted through the emergency department with severe weakness and dehydration secondary to a urinary tract infection. - Discharge Data Discharge Date: 03/25/17 Discharge Disposition: DC/Tfer to Other 70 Condition: Fair - Discharge Diagnosis/Problem(s) (1) Weakness SNOMED Code(s): 85288818 ICD Code: R53.1 - WEAKNESS Status: Acute Current Visit: Yes (2) Acute cystitis without hematuria SNOMED Code(s): 79132882 ICD Code: N30.00 - ACUTE CYSTITIS WITHOUT HEMATURIA Status: Acute Current Visit: Yes (3) Dementia with behavioral disturbance SNOMED Code(s): 9046967695179 ICD Code: F03.91 - UNSPECIFIED DEMENTIA WITH BEHAVIORAL DISTURBANCE Status : Chronic Current Visit: Yes Qualifiers: Dementia type: Alzheimer's disease Alzheimer's disease onset: late-onset Qualified Code(s): G30.1 - Alzheimer's disease with late onset; F02.81 - Dementia in other diseases classified elsewhere with behavioral disturbance - Patient Summary/Data Consults: Consultations 03/23/17 18:52 PT Evaluation and Treatment [CONS] Routine Please Evaluate and Treat. PT Reason for Consult: Strengthening This query below is only for informational purposes and is not editable. Hospital Course: Ms. Flores is an 82-year-old woman who developed progressive weakness with falls for 2 days prior to admission. She was brought into the emergency room for evaluation and found to have marked elevation of white blood cell count 26, 000 as well as evidence of underlying urinary tract infection. She did have temperature elevation but no other evidence for sepsis, vital signs were stable. She was admitted and given IV fluids for hydration as well as IV antibiotic therapy with ceftriaxone. By the following day she was appearing somewhat improved and IV fluids were discontinued. Oral intake was good from that point on and she was able to keep herself hydrated as well as noted improvement in overall strength. Prior to discharge she was able to ambulate with use of a 2 wheeled walker. Urine culture grew out pansensitive Escherichia coli and she will be discharged home on a few more days of oral antibiotic therapy with Septra DS. Activity will be as tolerated and she will resume her usual diet. - Patient Instructions Diet: Usual Diet as Tolerated Activity: As Tolerated - Discharge Plan Prescriptions/Med Rec: Sulfamethoxazole/Trimethoprim [IJD: Sulfamethoxazole/Trimethoprim DS] 1 tab PO BID #10 tablet Home Medications: Home Meds Acetaminophen 650 mg PO TID 03/23/17 [History] Alum Hydrox/Mag Hydrox/Simeth [Maalox Advanced] 15 ml PO Q6H PRN 03/23/17 [ History] Bimatoprost [LUMIGAN 0.01% Ophth Soln] 1 drop EYEBOTH BEDTIME 03/23/17 [History] Cyanocobalamin (Vitamin B-12) [Vitamin B-12] 1,000 mcg SL DAILY 03/23/17 [ History] DULoxetine [Cymbalta] 30 mg PO BEDTIME 03/23/17 [History] Donepezil HCl 10 mg PO BEDTIME 03/23/17 [History] Ferrous Sulfate 325 mg PO DAILY 03/23/17 [History] Folic Acid 1 mg PO DAILY 03/23/17 [History] Gabapentin [Neurontin] 300 mg PO BID 03/23/17 [History] Lactose-Reduced Food [Ensure] 1 can PO BID 03/23/17 [History] Magnesium Hydroxide [Milk of Magnesia] 15 ml PO DAILY PRN 03/23/17 [History] Memantine [Namenda] 10 mg PO BID 03/23/17 [History] Mirtazapine 15 mg PO BEDTIME 03/23/17 [History] NIFEdipine [Adalat cc] 60 mg PO DAILY 03/23/17 [History] Naproxen Sodium 220 mg PO BID 03/23/17 [History] OLANZapine [Olanzapine] 5 mg PO BEDTIME 03/23/17 [History] Polyethylene Glycol 3350 [MiraLAX] 17 gm PO DAILY PRN 03/23/17 [History] Triamcinolone Acetonide [Triamcinolone Acetonide 0.1% Crm] 1 gm TOP BID PRN [History] traZODone HCl [Trazodone HCl] 50 mg PO BEDTIME PRN 03/23/17 [History] Sulfamethoxazole/Trimethoprim [IJD: Sulfamethoxazole/Trimethoprim DS] 1 tab PO BID #10 tablet 03/25/17 [Rx] Referrals: Alexus New NP [Primary Care Provider] - - Patient Data Vitals - Most Recent: Last Vital Signs Temp 97.0 F 03/25/17 07:13 Pulse 66 03/25/17 07:13 Resp 16 03/25/17 07:13 BP 120/68 03/25/17 08:48 Pulse Ox 95 03/25/17 07:13 Weight - Most Recent: 138 lb 11.191 oz I&O - Last 24 hours: Intake & Output 03/24/17 03/25/17 03/25/17 22:59 06:59 14:59 Intake Total 480 Output Total 900 375 400 Balance -420 -375 -400 Lab Results - Last 24 hrs: Laboratory Results - last 24 hr 03/25/17 03/25/17 Range/Units 04:45 04:45 WBC 13.8 H (4.5-11.0) K/uL RBC 3.07 L (3.30-5.50) M/uL Hgb 9.2 L (12.0-15.0) g/dL Hct 27.9 L (36.0-48.0) % MCV 91 (80-98) fL MCH 30 (27-31) pg MCHC 33 (32-36) % Plt Count 440 H (150-400) K/uL Neut % (Auto) 81 H (36-66) % Lymph % (Auto) 8 L (24-44) % [place] % (Auto) 9 H (2-6) % Eos % (Auto) 2 (2-4) % Baso % (Auto) 0 (0-1) % Sodium 140 (140-148) mmol/L Potassium 3.6 (3.6-5.2) mmol/L Chloride 106 (100-108) mmol/L Carbon Dioxide 30 (21-32) mmol/L Anion Gap 4.3 L (5.0-14.0) mmol/L BUN 11 (7-18) mg/dL Creatinine 0.7 (0.6-1.0) mg/dL Est Cr Clr Drug Dosing 55.75 mL/min Estimated GFR (MDRD) > 60 (>60) Glucose 100 (74-106) mg/dL Calcium 8.4 L (8.5-10.1) mg/dL Med Orders - Current: Current Medications Acetaminophen (Tylenol) 650 mg PO TID [facility] Last Admin: 03/25/17 08:49 Dose: 650 mg Acetaminophen (Tylenol) 650 mg PO Q4H PRN PRN Reason: Pain (Mild 1-3)/fever Cyanocobalamin (Vitamin B12) 1,000 mcg SL DAILY [facility] Last Admin: 03/25/17 08:48 Dose: 1,000 mcg Donepezil HCl (Aricept) 10 mg PO BEDTIME [facility] Last Admin: 03/24/17 21:13 Dose: 10 mg Duloxetine HCl (Cymbalta) 30 mg PO BEDTIME [facility] Last Admin: 03/24/17 21:13 Dose: 30 mg Ferrous Sulfate (Ferrous Sulfate) 325 mg PO DAILY [facility] Last Admin: 03/25/17 08:49 Dose: 325 mg Folic Acid (Folic Acid) 1 mg PO DAILY [facility] Last Admin: 03/25/17 08:48 Dose: 1 mg Gabapentin (Neurontin) 300 mg PO BID [facility] Last Admin: 03/25/17 08:49 Dose: 300 mg Latanoprost (Xalatan 0.005% Ophth Soln) 0 ml EYEBOTH BEDTIME [facility] Last Admin: 03/24/17 21:14 Dose: 1 drop Magnesium Hydroxide (Milk Of Magnesia) 30 ml PO Q12H PRN PRN Reason: Constipation Melatonin (Melatonin) 9 mg PO BEDTIME [facility] Last Admin: 03/24/17 21:13 Dose: 9 mg Memantine (Namenda) 10 mg PO BID [facility] Last Admin: 03/25/17 08:49 Dose: 10 mg Mirtazapine (Remeron) 15 mg PO BEDTIME [facility] Last Admin: 03/24/17 21:14 Dose: 15 mg Naproxen (Naproxen Sodium) 220 mg PO BID [facility] Last Admin: 03/25/17 08:49 Dose: 220 mg Nifedipine (Procardia Xl) 60 mg PO DAILY [facility] Last Admin: 03/25/17 08:48 Dose: 60 mg Olanzapine (Zyprexa) 5 mg PO BEDTIME [facility] Last Admin: 03/24/17 21:14 Dose: 5 mg Ondansetron HCl (Zofran Odt) 4 mg PO Q6H PRN PRN Reason: Nausea able to take PO Polyethylene Glycol (Miralax) 17 gm PO DAILY PRN PRN Reason: Constipation Senna/Docusate Sodium (Senna Plus) 1 tab PO BID PRN PRN Reason: Constipation Sodium Chloride (Saline Flush) 10 ml FLUSH ASDIRECTED PRN PRN Reason: Keep Vein Open Last Admin: 03/23/17 17:34 Dose: 10 ml Trimethoprim/Sulfamethoxazole (Septra Ds) 1 tab PO BID [facility] Last Admin: 03/25/17 10:07 Dose: 1 tab Discontinued Medications Sodium Chloride (Normal Saline) 1,000 mls @ 125 mls/hr IV ASDIRECTED [facility] Sodium Chloride (Normal Saline) 1,000 mls @ 999 mls/hr IV .BOLUS ONE Stop: 03/23/17 18:08 Last Admin: 03/23/17 17:34 Dose: 999 mls/hr Ceftriaxone Sodium 1 gm/ (Sodium Chloride) 50 mls @ 100 mls/hr IV ONETIME ONE Stop: 03/23/17 17:47 Last Admin: 03/23/17 17:34 Dose: 100 mls/hr Sodium Chloride (Normal Saline) 1,000 mls @ 125 mls/hr IV ASDIRECTED [facility] Last Admin: 03/24/17 06:49 Dose: 125 mls/hr Ceftriaxone Sodium 1 gm/ (Sodium Chloride) 50 mls @ 100 mls/hr IV Q24H [facility] Last Admin: 03/24/17 16:52 Dose: 100 mls/hr Potassium Chloride (Klor-Con M20) 40 meq PO ONETIME ONE Stop: 03/24/17 09:01 Last Admin: 03/24/17 10:15 Dose: 40 meq Potassium Chloride (Klor-Con M20) 40 meq PO ONETIME ONE Stop: 03/25/17 09:46 Last Admin: 03/25/17 10:08 Dose: 40 meq *Q Meaningful Use (DIS) - VTE *Q VTE Criteria *Q: - Stroke *Q Stroke Criteria *Q: - AMI *Q AMI Criteria *Q:
== END 2017-03-25 11:55 | disposition other institution (70) | DRG 690 ==
LOC: JP.ED 14:50 → JP.MS 17:54
PROVIDERS: ADMIT Internal Medicine; ATTEND Internal Medicine
DX: N30.00 Acute cystitis without hematuria (principal); F02.81 Dementia in other diseases classified elsewhere, unspecified severity, with behavioral disturbance; B96.20 Unspecified Escherichia coli [E. coli] as the cause of diseases classified elsewhere; G30.1 Alzheimer's disease with late onset; Z66 Do not resuscitate; Z91.81 History of falling; Z86.73 Personal history of transient ischemic attack (TIA), and cerebral infarction without residual deficits; S80.212A Abrasion, left knee, initial encounter; W07.XXXA Fall from chair, initial encounter; Y92.099 Unspecified place in other non-institutional residence as the place of occurrence of the external cause; R53.1 Weakness; R41.82 Altered mental status, unspecified; M54.9 Dorsalgia, unspecified; G89.29 Other chronic pain; M19.90 Unspecified osteoarthritis, unspecified site
CPT/HCPCS: 36415; 70450; 71010 ×2; 73562 ×2; 80053; 81001; 83605; 84484; 85025; 87086; 87088; 87186; 93005; 96361; 96365; 99285; J0696; J7040; J7050 ×2; 80048; 85027; 93010; 97162-GP; 97530-GP; A9270-GY

== ENCOUNTER → 2017-05-23 | Day surgery (SDC) | payer MEDICARE, BC ==
[~2017-05-23] MED LIST: Lidocaine 1% 2 ML ONE; Propofol 200 MG/20 ML SDV ONE; Sodium Chloride 0.9% 1,000 ML IV SCH
--- NOTE | 2017-05-23 13:49 | EDM.PDOC ---
ED HPI GENERAL MEDICAL PROBLEM - General Chief Complaint: Gastrointestinal Problem Stated Complaint: something in throat Time Seen by Provider: 05/23/17 13:40 Source of Information: Reports: Family History Limitations: Reports: Altered Mental Status - History of Present Illness INITIAL COMMENTS - FREE TEXT/NARRATIVE: Confusion and advanced dementia Onset: Other (Symptoms started last evening) Location: Reports: Abdomen Severity: Moderate Worsens with: Reports: Other (Trying to eat or drink anything eventually just gets regurgitated, it will not pass into the stomach) - Related Data Allergies Allergy/AdvReac Type Severity Reaction Status Date / Time No Known Allergies Allergy Verified 03/23/17 15:17 Home Meds: Home Meds Acetaminophen 650 mg PO TID 03/23/17 [History] Alum Hydrox/Mag Hydrox/Simeth [Maalox Advanced] 15 ml PO Q6H PRN 03/23/17 [ History] Bimatoprost [LUMIGAN 0.01% Ophth Soln] 1 drop EYEBOTH BEDTIME 03/23/17 [History] Cyanocobalamin (Vitamin B-12) [Vitamin B-12] 1,000 mcg SL DAILY 03/23/17 [ History] DULoxetine [Cymbalta] 30 mg PO BEDTIME 03/23/17 [History] Donepezil HCl 10 mg PO BEDTIME 03/23/17 [History] Ferrous Sulfate 325 mg PO DAILY 03/23/17 [History] Folic Acid 1 mg PO DAILY 03/23/17 [History] Gabapentin [Neurontin] 300 mg PO BID 03/23/17 [History] Lactose-Reduced Food [Ensure] 1 can PO BID 03/23/17 [History] Magnesium Hydroxide [Milk of Magnesia] 15 ml PO DAILY PRN 03/23/17 [History] Memantine [Namenda] 10 mg PO BID 03/23/17 [History] Mirtazapine 15 mg PO BEDTIME 03/23/17 [History] NIFEdipine [Adalat cc] 60 mg PO DAILY 03/23/17 [History] Naproxen Sodium 220 mg PO BID 03/23/17 [History] OLANZapine [Olanzapine] 5 mg PO BEDTIME 03/23/17 [History] Polyethylene Glycol 3350 [MiraLAX] 17 gm PO DAILY PRN 03/23/17 [History] Triamcinolone Acetonide [Triamcinolone Acetonide 0.1% Crm] 1 gm TOP BID PRN [History] traZODone HCl [Trazodone HCl] 50 mg PO BEDTIME 03/23/17 [History] Sulfamethoxazole/Trimethoprim [IJD: Sulfamethoxazole/Trimethoprim DS] 1 tab PO BID #10 tablet 03/25/17 [Rx] Past Medical History HEENT History: Reports: Hard of Hearing Other HEENT History: does not have hearing aid with. Cardiovascular History: Reports: Hypertension Gastrointestinal History: Reports: GERD Musculoskeletal History: Reports: Back Pain, Chronic, Osteoarthritis 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, CVA, TIA Psychiatric History: Reports: Dementia, Depression Other Psychiatric History: paranoid and hallucinationations Hematologic History: Reports: Anemia, B12 Deficiency, Iron Deficiency - Infectious Disease History Infectious Disease History: Reports: Chicken Pox, Measles, Mumps - Past Surgical History GI Surgical History: Reports: Cholecystectomy Female Surgical History: Reports: Hysterectomy Other Female Surgeries/Procedures: bladder suspension Social & Family History - Family History Family Medical History: Noncontributory - Tobacco Use Smoking Status *Q: Never Smoker Years of Tobacco use: 50 Packs/Tins Daily: 1 Used Tobacco, but Quit: Yes Month Tobacco Last Used: 2013 Second Hand Smoke Exposure: No - Caffeine Use Caffeine Use: Reports: Coffee - Alcohol Use Days Per Week of Alcohol Use: 0 - Recreational Drug Use Recreational Drug Use: No ED ROS GENERAL - Review of Systems Review Of Systems: Unable To Obtain (A small review of systems was obtained from her daughter) Constitutional: Denies: Fever Respiratory: Denies: Shortness of Breath GI/Abdominal: Reports: Nausea. Denies: Vomiting Neurological: Reports: Confusion (Chronic and stable) ED EXAM, GI/ABD - Physical Exam Exam: See Below Exam Limited By: No Limitations General Appearance: Alert, No Apparent Distress Eyes: Bilateral: EOMI Respiratory/Chest: No Respiratory Distress, Lungs Clear Cardiovascular: Regular Rate, Rhythm GI/Abdominal Exam: Soft. No: Tender (Does not react with tenderness to palpation in the abdomen) Course - Vital Signs Last Recorded V/S: Last Vital Signs Temp 97.6 F 05/23/17 15:14 Pulse 70 05/23/17 15:45 Resp 16 05/23/17 15:45 BP 100/53 L 05/23/17 15:45 Pulse Ox 96 05/23/17 15:45 - Orders/Labs/Meds Orders: Active Orders 24 hr Category Date Time Status OR Fluoro-NC [CR] Routine Exams 05/23/17 14:00 Ordered Sodium Chloride 0.9% [Normal Saline] 1,000 ml Med 05/23/17 13:45 Active IV ASDIRECTED Medication Orders Sodium Chloride (Normal Saline) 1,000 mls @ 250 mls/hr IV ASDIRECTED JA Last Admin: 05/23/17 14:10 Dose: 250 mls/hr Labs: Laboratory Tests 05/23/17 05/23/17 Range/Units 13:55 13:55 WBC 20.4 H (4.5-11.0) K/uL RBC 3.98 (3.30-5.50) M/uL Hgb 11.8 L D (12.0-15.0) g/dL Hct 36.3 (36.0-48.0) % MCV 91 (80-98) fL MCH 30 (27-31) pg MCHC 33 (32-36) % Plt Count 361 (150-400) K/uL Neut % (Auto) 84 H (36-66) % Lymph % (Auto) 9 L (24-44) % [place] % (Auto) 7 H (2-6) % Eos % (Auto) 0 L (2-4) % Baso % (Auto) 0 (0-1) % Sodium 142 (140-148) mmol/L Potassium 3.4 L (3.6-5.2) mmol/L Chloride 104 (100-108) mmol/L Carbon Dioxide 32 (21-32) mmol/L Anion Gap 9.4 (5.0-14.0) mmol/L BUN 15 (7-18) mg/dL Creatinine 1.1 H D (0.6-1.0) mg/dL Est Cr Clr Drug Dosing 35.22 mL/min Estimated GFR (MDRD) 48 L (>60) Glucose 119 H (74-106) mg/dL Calcium 9.5 (8.5-10.1) mg/dL Meds: Medications Generic Name Dose Route Start Last Admin Trade Name Freq PRN Reason Stop Dose Admin Sodium Chloride 1,000 mls @ 250 mls/hr 05/23/17 13:45 05/23/17 14:10 Normal Saline IV 250 mls/hr ASDIRECTED JA Administration Discontinued Medications Generic Name Dose Route Start Last Admin Trade Name Lalita PRN Reason Stop Dose Admin Lidocaine HCl Confirm 05/23/17 14:12 Xylocaine-Mpf 1% Administered 05/23/17 14:13 Dose 2 mls @ as directed .ROUTE .STK-MED ONE Propofol Confirm 05/23/17 14:21 Diprivan 20 Ml Administered 05/23/17 14:22 Dose 200 mg .ROUTE .STK-MED ONE - Re-Assessments/Exams Free Text/Narrative Re-Assessment/Exam: 05/23/17 13:47 Patient will be hydrated with normal saline at 250 mL an hour, a baseline CBC and BMP are obtained and Dr. Soto of surgery has been consulted to see the patient. 05/23/17 15:53 EGD was unsuccessful because the stomach was full of liquid, there appeared to be irritation at the distal esophagus where there was an obstruction. She'll be placed on Augmentin twice a day and re-scoped tomorrow morning. She was given a glass of water prior to discharge and kept it down fine without symptoms so there was a definite change. Departure - Departure Time of Disposition: 16:27 Disposition: Home, Self-Care 01 Condition: Fair Clinical Impression: Esophageal foreign body Qualifiers: Encounter type: initial encounter Qualified Code(s): T18.108A - Unspecified foreign body in esophagus causing other injury, initial encounter - Discharge Information - My Orders Last 24 Hours: My Active Orders 05/23/17 13:45 Sodium Chloride 0.9% [Normal Saline] 1,000 ml IV ASDIRECTED - Assessment/Plan Last 24 Hours: My Active Orders 05/23/17 13:45 Sodium Chloride 0.9% [Normal Saline] 1,000 ml IV ASDIRECTED
[2017-05-23 16:33] VITALS: BP 100/53
--- NOTE | 2017-05-26 09:27 | OR ---
DATE OF PROCEDURE: 05/23/2017 PROCEDURE: Esophagogastroduodenoscopy. FINDINGS: 1. Foreign material noted, undigested food. 2. Narrowing of the GE junction. COMPLICATIONS: None. FABRICATOR INDUSTRIAL FURNACE: None. ANESTHESIA: MAC. RISK: Risks, benefits, alternatives, limitations including, but not limited to infection, bleeding, and perforation were explained to the patient and family, and they wished to proceed. PROCEDURE IN DETAIL: The patient was placed in left lateral decubitus position. The EGD scope was introduced and advanced atraumatically to second part of the duodenum. The scope was brought back and retroflexed. Foreign food material was noted in the esophagus. The patient was noted to have solid undigested food in the proximal esophagus during the beginning of the procedure. Due to this, the procedure was terminated due to the high risk of aspiration. The patient will return tomorrow for more formal EGD. Lamont Soto MD /[id number]
== END ==
LOC: JP.ED 13:11 → JP.SDS 14:06
PROVIDERS: ATTEND Surgery
DX: K22.2 Esophageal obstruction (principal)
CPT/HCPCS: 36415; 43235; 80048; 85025; 96360; 96361; 99285; J2704; J7040; 99284

== ENCOUNTER 2017-05-24 09:52 | Observation (INO) | payer MEDICARE, BC ==
--- NOTE | 2017-05-24 10:25 | EDM.PDOC ---
ED HPI GENERAL MEDICAL PROBLEM - General Chief Complaint: Respiratory Problem Stated Complaint: CAME FROM SURGERY Time Seen by Provider: 05/24/17 10:05 Source of Information: Reports: Family, Provider History Limitations: Reports: Altered Mental Status - History of Present Illness INITIAL COMMENTS - FREE TEXT/NARRATIVE: 82-year-old female in for her second ER visit in the last 2 days. Yesterday she developed esophageal obstruction, went to surgery for an EGD but apparently had resolved her obstruction prior to the procedure. She was rescheduled for today, and was placed on Augmentin to cover a possible aspiration prior or during the procedure. She is very lethargic today, less communicative but stable. After her procedure she had persistent hypoxia so was sent to the emergency room for an assessment. In postoperative recovery she had normal saturations on room air. On arrival to the emergency room she is very sleepy and hypoventilating, it appears to be more respiratory effort than pathology because if I ask her to take a few good breaths her O2 saturations do to improve into the 90s. Duration: Day(s): (Problems over the past 2 days) Severity: Moderate Improves with: Reports: Other (O2 saturations and alertness improved with stimulation) Associated Symptoms: Reports: Cough. Denies: Fever/Chills, Shortness of Breath - Related Data Allergies Allergy/AdvReac Type Severity Reaction Status Date / Time No Known Allergies Allergy Verified 03/23/17 15:17 Home Meds: Home Meds Acetaminophen 650 mg PO TID 03/23/17 [History] Alum Hydrox/Mag Hydrox/Simeth [Maalox Advanced] 15 ml PO Q6H PRN 03/23/17 [ History] Bimatoprost [LUMIGAN 0.01% Ophth Soln] 1 drop EYEBOTH BEDTIME 03/23/17 [History] Cyanocobalamin (Vitamin B-12) [Vitamin B-12] 1,000 mcg SL DAILY 03/23/17 [ History] DULoxetine [Cymbalta] 30 mg PO BEDTIME 03/23/17 [History] Donepezil HCl 10 mg PO BEDTIME 03/23/17 [History] Ferrous Sulfate 325 mg PO DAILY 03/23/17 [History] Folic Acid 1 mg PO DAILY 03/23/17 [History] Gabapentin [Neurontin] 300 mg PO BID 03/23/17 [History] Lactose-Reduced Food [Ensure] 1 can PO BID 03/23/17 [History] Magnesium Hydroxide [Milk of Magnesia] 15 ml PO DAILY PRN 03/23/17 [History] Memantine [Namenda] 10 mg PO BID 03/23/17 [History] Mirtazapine 15 mg PO BEDTIME 03/23/17 [History] NIFEdipine [Adalat cc] 60 mg PO DAILY 03/23/17 [History] Naproxen Sodium 220 mg PO BID 03/23/17 [History] OLANZapine [Olanzapine] 5 mg PO BEDTIME 03/23/17 [History] Polyethylene Glycol 3350 [MiraLAX] 17 gm PO DAILY PRN 03/23/17 [History] Triamcinolone Acetonide [Triamcinolone Acetonide 0.1% Crm] 1 gm TOP BID PRN [History] traZODone HCl [Trazodone HCl] 50 mg PO BEDTIME 03/23/17 [History] Sulfamethoxazole/Trimethoprim [IJD: Sulfamethoxazole/Trimethoprim DS] 1 tab PO BID #10 tablet 03/25/17 [Rx] Amoxicillin/Clavulanate K [Augmentin 400-57 MG/5 ML] 10 ml PO BID 05/24/17 [ History] Past Medical History HEENT History: Reports: Hard of Hearing Other HEENT History: does not have hearing aid with. Cardiovascular History: Reports: Hypertension Gastrointestinal History: Reports: GERD, Hiatal Hernia Musculoskeletal History: Reports: Back Pain, Chronic, Osteoarthritis 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, CVA, TIA Psychiatric History: Reports: Dementia, Depression Other Psychiatric History: paranoid and hallucinationations Hematologic History: Reports: Anemia, B12 Deficiency, Iron Deficiency - Infectious Disease History Infectious Disease History: Reports: Chicken Pox, Measles, Mumps - Past Surgical History GI Surgical History: Reports: Cholecystectomy Female Surgical History: Reports: Hysterectomy Other Female Surgeries/Procedures: bladder suspension Social & Family History - Family History Family Medical History: Noncontributory - Tobacco Use Smoking Status *Q: Never Smoker Years of Tobacco use: 50 Packs/Tins Daily: 1 Used Tobacco, but Quit: Yes Month Tobacco Last Used: 2013 Second Hand Smoke Exposure: No - Caffeine Use Caffeine Use: Reports: Coffee - Alcohol Use Days Per Week of Alcohol Use: 0 - Recreational Drug Use Recreational Drug Use: No ED ROS GENERAL - Review of Systems Review Of Systems: See Below Constitutional: Reports: Malaise, Weakness. Denies: Fever Respiratory: Reports: Shortness of Breath, Cough Cardiovascular: Denies: Chest Pain, Palpitations Endocrine: Reports: Fatigue GI/Abdominal: Denies: Abdominal Pain Skin: Reports: Pallor Neurological: Reports: Confusion, Weakness ED EXAM, GENERAL - Physical Exam Exam: See Below Exam Limited By: Physical Impairment (Not offering any history today, chronic baseline confusion but very fatigued) General Appearance: No Apparent Distress, Lethargic Eye Exam: Bilateral Eye: EOMI (Opens her eyes on command and focuses well) Respiratory/Chest: No Respiratory Distress, Crackles (By basilar crackles are heard but otherwise good air movement) Cardiovascular: Regular Rate, Rhythm Neurological: Inattentive, Slow to Respond Psychiatric: Flat Affect Skin Exam: Warm, Dry Course - Vital Signs Last Recorded V/S: Last Vital Signs Temp 99.0 F 05/24/17 12:54 Pulse 70 05/24/17 12:54 Resp 16 05/24/17 12:54 BP 124/70 05/24/17 12:54 Pulse Ox 90 L 05/24/17 12:54 - Orders/Labs/Meds Orders: Active Orders 24 hr Category Date Time Status Chest 1V Frontal [CR] Stat Exams 05/24/17 10:13 Taken CULTURE URINE [RM] Stat Lab 05/24/17 11:09 Received Medication Orders Acetaminophen (Tylenol) 650 mg PO Q4H PRN PRN Reason: Pain (Mild 1-3)/fever Albuterol (Proventil Neb Soln) 2.5 mg NEB Q4H PRN PRN Reason: Shortness Of Breath/wheezing Divalproex Sodium (Divalproex Sodium) 250 mg PO BIDMEALS JA Docusate Sodium (Colace) 100 mg PO BID PRN PRN Reason: Constipation Donepezil HCl (Aricept) 10 mg PO BEDTIME JA Duloxetine HCl (Cymbalta) 30 mg PO BEDTIME JA Enoxaparin Sodium (Lovenox) 40 mg SUBCUT Q24H [facility] Last Admin: 05/24/17 15:10 Dose: 40 mg Gabapentin (Neurontin) 300 mg PO BID [facility] Last Admin: 05/24/17 13:39 Dose: 300 mg Haloperidol Lactate (Haldol) 1 mg IVPUSH Q2H PRN PRN Reason: Agitation Ceftriaxone Sodium 1 gm/ (Sodium Chloride) 50 mls @ 100 mls/hr IV Q24H JA Sodium Chloride (Normal Saline) 1,000 mls @ 75 mls/hr IV ASDIRECTED JA Last Admin: 05/24/17 13:25 Dose: 75 mls/hr Potassium Chloride 20 meq/Lidocaine HCl 2 ml/ Sodium Chloride 112 mls @ 56 mls/ hr IV Q2H JA Stop: 05/24/17 17:59 Last Admin: 05/24/17 13:52 Dose: 56 mls/hr Magnesium Hydroxide (Milk Of Magnesia) 30 ml PO Q12H PRN PRN Reason: Constipation Melatonin (Melatonin) 9 mg PO BEDTIME [facility] Last Admin: 05/24/17 15:11 Dose: Memantine (Namenda) 10 mg PO BID JA Last Admin: 05/24/17 13:38 Dose: 10 mg Mirtazapine (Remeron) 15 mg PO BEDTIME JA Nifedipine (Procardia Xl) 60 mg PO DAILY JA Olanzapine (Zyprexa) 5 mg PO BEDTIME JA Ondansetron HCl (Zofran) 4 mg IV Q4H PRN PRN Reason: Nausea/Vomiting Pantoprazole Sodium (Protonix) 40 mg PO BIDAC [facility] Lumigan 0.01% Opth (Soln (Ptom)) 0 each EYEBOTH BEDTIME JA Polyethylene Glycol (Miralax) 17 gm PO DAILY PRN PRN Reason: Constipation Sodium Chloride (Saline Flush) 10 ml FLUSH ASDIRECTED PRN PRN Reason: Keep Vein Open Trazodone HCl (Trazodone) 50 mg PO BEDTIME [facility] Labs: Laboratory Tests 05/24/17 05/24/17 05/24/17 Range/Units 10:30 10:30 10:30 WBC 20.8 H (4.5-11.0) K/uL RBC 3.54 (3.30-5.50) M/uL Hgb 10.6 L (12.0-15.0) g/dL Hct 32.7 L (36.0-48.0) % MCV 92 (80-98) fL MCH 30 (27-31) pg MCHC 32 (32-36) % Plt Count 311 (150-400) K/uL Neut % (Auto) 89 H (36-66) % Lymph % (Auto) 6 L (24-44) % Schuyler % (Auto) 5 (2-6) % Eos % (Auto) 0 L (2-4) % Baso % (Auto) 0 (0-1) % Sodium 144 (140-148) mmol/L Potassium 3.3 L (3.6-5.2) mmol/L Chloride 108 (100-108) mmol/L Carbon Dioxide 30 (21-32) mmol/L Anion Gap 9.3 (5.0-14.0) mmol/L BUN 20 H (7-18) mg/dL Creatinine 0.9 (0.6-1.0) mg/dL Est Cr Clr Drug Dosing 44.79 mL/min Estimated GFR (MDRD) > 60 (>60) Glucose 108 H (74-106) mg/dL Calcium 8.9 (8.5-10.1) mg/dL Troponin I < 0.017 (0.000-0.056) ng/mL Urine Color Urine Appearance Urine pH (4.5-8.0) Ur Specific [place] (1.008-1.030) Urine Protein (NEGATIVE) mg/dL Urine Glucose (UA) (NEGATIVE) mg/dL Urine Ketones (NEGATIVE) mg/dL Urine Occult Blood (NEGATIVE) Urine Nitrite (NEGATIVE) Urine Bilirubin (NEGATIVE) Urine Urobilinogen (NORMAL) mg/dL Ur Leukocyte Esterase (NEGATIVE) Urine RBC (0-5) Urine WBC (0-5) Ur Epithelial Cells Amorphous Sediment Urine Bacteria Urine Mucus //17 Range/Units 10:48 WBC (4.5-11.0) K/uL RBC (3.30-5.50) M/uL Hgb (12.0-15.0) g/dL Hct (36.0-48.0) % MCV (80-98) fL MCH (27-31) pg MCHC (32-36) % Plt Count (150-400) K/uL Neut % (Auto) (36-66) % Lymph % (Auto) (24-44) % Schuyler % (Auto) (2-6) % Eos % (Auto) (2-4) % Baso % (Auto) (0-1) % Sodium (140-148) mmol/L Potassium (3.6-5.2) mmol/L Chloride (100-108) mmol/L Carbon Dioxide (21-32) mmol/L Anion Gap (5.0-14.0) mmol/L BUN (7-18) mg/dL Creatinine (0.6-1.0) mg/dL Est Cr Clr Drug Dosing mL/min Estimated GFR (MDRD) (>60) Glucose (74-106) mg/dL Calcium (8.5-10.1) mg/dL Troponin I (0.000-0.056) ng/mL Urine Color Yellow Urine Appearance Slightly cloudy Urine pH 5.0 (4.5-8.0) Ur Specific [place] 1.025 (1.008-1.030) Urine Protein Trace (NEGATIVE) mg/dL Urine Glucose (UA) Normal (NEGATIVE) mg/dL Urine Ketones Negative (NEGATIVE) mg/dL Urine Occult Blood Negative (NEGATIVE) Urine Nitrite Positive H (NEGATIVE) Urine Bilirubin Small (NEGATIVE) Urine Urobilinogen 1 (NORMAL) mg/dL Ur Leukocyte Esterase Small (NEGATIVE) Urine RBC 0-5 (0-5) Urine WBC 10-20 H (0-5) Ur Epithelial Cells Rare Amorphous Sediment Not seen Urine Bacteria Many Urine Mucus Not seen Meds: Medications Generic Name Dose Route Start Last Admin Trade Name Freq PRN Reason Stop Dose Admin Acetaminophen 650 mg 05/24/17 12:54 Tylenol PO Q4H PRN Pain (Mild 1-3)/fever Albuterol 2.5 mg 05/24/17 12:54 Proventil Neb Soln NEB Q4H PRN Shortness Of Breath/wheezing Divalproex Sodium 250 mg 05/24/17 17:00 Divalproex Sodium PO BIDMEALS JA Docusate Sodium 100 mg 05/24/17 12:54 Colace PO BID PRN Constipation Donepezil HCl 10 mg 05/24/17 21:00 Aricept PO BEDTIME JA Duloxetine HCl 30 mg 05/24/17 21:00 Cymbalta PO BEDTIME JA Enoxaparin Sodium 40 mg 05/24/17 14:00 05/24/17 15:10 Lovenox SUBCUT 40 mg Q24H JA Administration Gabapentin 300 mg 05/24/17 13:30 05/24/17 13:39 Neurontin PO 300 mg BID JA Administration Haloperidol Lactate 1 mg 05/24/17 15:25 Haldol IVPUSH Q2H PRN Agitation Ceftriaxone Sodium 1 gm/ 50 mls @ 100 mls/hr 05/25/17 12:00 Sodium Chloride IV Q24H JA Sodium Chloride 1,000 mls @ 75 mls/hr 05/24/17 12:54 05/24/17 13:25 Normal Saline IV 75 mls/hr ASDIRECTED JA Administration Potassium Chloride 20 meq/ 112 mls @ 56 mls/hr 05/24/17 14:00 05/24/17 13:52 Lidocaine HCl 2 ml/ Sodium IV 05/24/17 17:59 56 mls/hr Chloride Q2H JA Administration Magnesium Hydroxide 30 ml 05/24/17 12:54 Milk Of Magnesia PO Q12H PRN Constipation Melatonin 9 mg 05/24/17 12:54 05/24/17 15:11 Melatonin PO Not Given BEDTIME JA Memantine 10 mg 05/24/17 13:30 05/24/17 13:38 Namenda PO 10 mg BID JA Administration Mirtazapine 15 mg 05/24/17 21:00 Remeron PO BEDTIME [facility] Nifedipine 60 mg 05/25/17 09:00 Procardia Xl PO DAILY [facility] Olanzapine 5 mg 05/24/17 21:00 Zyprexa PO BEDTIME [facility] Ondansetron HCl 4 mg 05/24/17 12:54 Zofran IV Q4H PRN Nausea/Vomiting Pantoprazole Sodium 40 mg 05/24/17 16:30 Protonix PO BIDAC [facility] Lumigan 0.01% Opth 0 each 05/24/17 21:00 Soln (Ptom) EYEBOTH BEDTIME [facility] Polyethylene Glycol 17 gm 05/24/17 12:54 Miralax PO DAILY PRN Constipation Sodium Chloride 10 ml 05/24/17 12:54 Saline Flush FLUSH ASDIRECTED PRN Keep Vein Open Trazodone HCl 50 mg 05/24/17 21:00 Trazodone PO BEDTIME [facility] Discontinued Medications Generic Name Dose Route Start Last Admin Trade Name Freq PRN Reason Stop Dose Admin Ceftriaxone Sodium 1 gm/ 50 mls @ 100 mls/hr 05/24/17 11:13 05/24/17 11:45 Sodium Chloride IV 05/24/17 11:42 100 mls/hr ONETIME ONE Administration Potassium Chloride 40 meq 05/24/17 13:30 05/24/17 13:38 Klor-Con M20 PO 05/24/17 13:31 40 meq ONETIME ONE Administration - Re-Assessments/Exams Free Text/Narrative Re-Assessment/Exam: 05/24/17 10:26 CBC troponin and CMP were repeated this morning and a 1 view chest x-ray was obtained. 05/24/17 11:04 White count is still over 20,000. Chest x-ray shows some diffuse mild vascular congestion but no infiltrate. Troponin is negative. A catheter UA specimen was obtained and is nitrite positive with bacteria. A culture was initiated. The patient is a resident of the memory care unit but does not have 24-hour nursing care and the family is very concerned she will be unable to care for herself. I asked Dr. Griggs to consider seeing the patient to consider admission. Departure - Departure Time of Disposition: 12:24 Disposition: Admitted As Inpatient 68 Condition: Poor Clinical Impression: Hypoxemia, UTI, Urinary tract infectious disease Change in mental status Qualifiers: Altered mental status type: somnolence Qualified Code(s): R40.0 - Somnolence - Discharge Information - My Orders Last 24 Hours: My Active Orders 05/24/17 10:13 Chest 1V Frontal [CR] Stat 05/24/17 11:09 CULTURE URINE [RM] Stat - Assessment/Plan Last 24 Hours: My Active Orders 05/24/17 10:13 Chest 1V Frontal [CR] Stat 05/24/17 11:09 CULTURE URINE [RM] Stat
[2017-05-24] MEDS ORDERED: cefTRIAXone 1 GM in Sodium Chloride 0.9% 50 ML IV ONE (11:13)
--- NOTE | 2017-05-24 12:20 | PCM.HP ---
H&P History of Present Illness - General Date of Service: 05/24/17 Admit Problem/Dx: Admission Diagnosis/Problem Admission Diagnosis/Problem Hypoxia Source of Information: Family, Provider, RN Notes Reviewed History Limitations: Reports: Altered Mental Status (Dementia) - History of Present Illness Initial Comments - Free Text/Narative: Ms. Flores is an 82-year-old woman who is admitted to observation status through the emergency department with lethargy, hypoxia, and urinary tract infection. She was stable until yesterday when she was noted to have vomiting in inability to drink or eat. She was brought into the emergency department for evaluation and felt to have likely retained food within the esophagus. Dr. Soto performed an EGD but apparently during the process of sedation and getting ready for the EGD the obstruction resolved spontaneously. When EGD was performed there was no obvious esophageal food impaction but she did have a significant stricture in the distal esophagus associated with some erythema and inflammation. Stomach was full of fluid and food particles. There was some question of possible aspiration during the EGD and she was discharged back to [facility] on oral Augmentin. She returned this morning for follow-up EGD again was noted to have some inflammation distal esophagus and associated stricture, this area was dilated. Following the procedure was noted to be very lethargic and hypoxic with low oxygen saturations. She was sent to the emergency department for further evaluation, hypoxia was thought to be secondary to hypoventilation with ongoing sedation likely related to fatigue and recent procedures. When she arouses she is alert and oxygen saturations improved. Chest x-ray shows no evidence of infiltrate at the present time, white blood cell count is elevated at 20,000. Other labs are unremarkable other than her urinalysis which shows evidence of active urinary tract infection. Urine culture has been obtained. - Related Data Allergies/Adverse Reactions: Allergies Allergy/AdvReac Type Severity Reaction Status Date / Time No Known Allergies Allergy Verified 03/23/17 15:17 Home Medications: Home Meds Acetaminophen 650 mg PO TID 03/23/17 [History] Alum Hydrox/Mag Hydrox/Simeth [Maalox Advanced] 15 ml PO Q6H PRN 03/23/17 [ History] Bimatoprost [LUMIGAN 0.01% Ophth Soln] 1 drop EYEBOTH BEDTIME 03/23/17 [History] Cyanocobalamin (Vitamin B-12) [Vitamin B-12] 1,000 mcg SL DAILY 03/23/17 [ History] DULoxetine [Cymbalta] 30 mg PO BEDTIME 03/23/17 [History] Donepezil HCl 10 mg PO BEDTIME 03/23/17 [History] Ferrous Sulfate 325 mg PO DAILY 03/23/17 [History] Folic Acid 1 mg PO DAILY 03/23/17 [History] Gabapentin [Neurontin] 300 mg PO BID 03/23/17 [History] Lactose-Reduced Food [Ensure] 1 can PO BID 03/23/17 [History] Magnesium Hydroxide [Milk of Magnesia] 15 ml PO DAILY PRN 03/23/17 [History] Memantine [Namenda] 10 mg PO BID 03/23/17 [History] Mirtazapine 15 mg PO BEDTIME 03/23/17 [History] NIFEdipine [Adalat cc] 60 mg PO DAILY 03/23/17 [History] Naproxen Sodium 220 mg PO BID 03/23/17 [History] OLANZapine [Olanzapine] 5 mg PO BEDTIME 03/23/17 [History] Polyethylene Glycol 3350 [MiraLAX] 17 gm PO DAILY PRN 03/23/17 [History] Triamcinolone Acetonide [Triamcinolone Acetonide 0.1% Crm] 1 gm TOP BID PRN [History] traZODone HCl [Trazodone HCl] 50 mg PO BEDTIME 03/23/17 [History] Sulfamethoxazole/Trimethoprim [IJD: Sulfamethoxazole/Trimethoprim DS] 1 tab PO BID #10 tablet 03/25/17 [Rx] Amoxicillin/Clavulanate K [Augmentin 400-57 MG/5 ML] 10 ml PO BID 05/24/17 [ History] Past Medical History HEENT History: Reports: Hard of Hearing Other HEENT History: does not have hearing aid with. Cardiovascular History: Reports: Hypertension Gastrointestinal History: Reports: GERD, Hiatal Hernia Musculoskeletal History: Reports: Back Pain, Chronic, Osteoarthritis 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, CVA, TIA Psychiatric History: Reports: Dementia, Depression Other Psychiatric History: paranoid and hallucinationations Hematologic History: Reports: Anemia, B12 Deficiency, Iron Deficiency - Infectious Disease History Infectious Disease History: Reports: Chicken Pox, Measles, Mumps - Past Surgical History GI Surgical History: Reports: Cholecystectomy Female Surgical History: Reports: Hysterectomy Other Female Surgeries/Procedures: bladder suspension Social & Family History - Family History Family Medical History: Noncontributory - Tobacco Use Smoking Status *Q: Never Smoker Years of Tobacco use: 50 Packs/Tins Daily: 1 Used Tobacco, but Quit: Yes Month Tobacco Last Used: 2013 Second Hand Smoke Exposure: No - Caffeine Use Caffeine Use: Reports: Coffee - Alcohol Use Days Per Week of Alcohol Use: 0 - Recreational Drug Use Recreational Drug Use: No H&P Review of Systems - Review of Systems: Review Of Systems: Unable To Obtain General: Reports: ROS unobtainable (Dementia and lethargy) Exam - Exam Exam: See Below - Vital Signs Vital Signs: Last Vital Signs Temp 98.2 F 05/24/17 10:49 Pulse 71 05/24/17 11:49 Resp 14 05/24/17 11:49 BP 131/71 05/24/17 11:49 Pulse Ox 94 L 05/24/17 11:49 Weight: 126 lb 14.404 oz - Exam Quality Assessment: Supplemental Oxygen, DVT Prophylaxis General: Sedated, Lethargic HEENT: Conjunctiva Clear, Mucosa Moist & [place], Normal Nasal Septum, Posterior Pharynx Clear, Pupils Equal Neck: Supple, Trachea Midline, +2 Carotid Pulse wo Bruit Lungs: Clear to Auscultation, Other (Hypoventilation). No: Rales, Rhonchi, Rub , Wheezing Cardiovascular: Regular Rate, Regular Rhythm, Normal S1, Normal S2. No: Systolic Murmur, Diastolic Murmur GI/Abdominal Exam: Normal Bowel Sounds, Soft, Non-Tender, No Distention Back Exam: Other (Scoliosis). No: CVA Tenderness (R), CVA Tenderness (L), Vertebral Tenderness Extremities: Normal Inspection, No Pedal Edema Skin: Warm, Dry, Intact Neuro Extensive - Mental Status: Memory Loss-Remote Events, Memory Loss-Recent Events, Opens Eyes to Commands, Slow Response to Commands - Patient Data Lab Results Last 24 hrs: Laboratory Results - last 24 hr 05/24/17 05/24/17 05/24/17 Range/Units 10:30 10:30 10:30 WBC 20.8 H (4.5-11.0) K/uL RBC 3.54 (3.30-5.50) M/uL Hgb 10.6 L (12.0-15.0) g/dL Hct 32.7 L (36.0-48.0) % MCV 92 (80-98) fL MCH 30 (27-31) pg MCHC 32 (32-36) % Plt Count 311 (150-400) K/uL Neut % (Auto) 89 H (36-66) % Lymph % (Auto) 6 L (24-44) % [place] % (Auto) 5 (2-6) % Eos % (Auto) 0 L (2-4) % Baso % (Auto) 0 (0-1) % Sodium 144 (140-148) mmol/L Potassium 3.3 L (3.6-5.2) mmol/L Chloride 108 (100-108) mmol/L Carbon Dioxide 30 (21-32) mmol/L Anion Gap 9.3 (5.0-14.0) mmol/L BUN 20 H (7-18) mg/dL Creatinine 0.9 (0.6-1.0) mg/dL Est Cr Clr Drug Dosing 44.79 mL/min Estimated GFR (MDRD) > 60 (>60) Glucose 108 H (74-106) mg/dL Calcium 8.9 (8.5-10.1) mg/dL Troponin I < 0.017 (0.000-0.056) ng/mL Urine Color Urine Appearance Urine pH (4.5-8.0) Ur Specific [place] (1.008-1.030) Urine Protein (NEGATIVE) mg/dL Urine Glucose (UA) (NEGATIVE) mg/dL Urine Ketones (NEGATIVE) mg/dL Urine Occult Blood (NEGATIVE) Urine Nitrite (NEGATIVE) Urine Bilirubin (NEGATIVE) Urine Urobilinogen (NORMAL) mg/dL Ur Leukocyte Esterase (NEGATIVE) Urine RBC (0-5) Urine WBC (0-5) Ur Epithelial Cells Amorphous Sediment Urine Bacteria Urine Mucus 05/24/17 Range/Units 10:48 WBC (4.5-11.0) K/uL RBC (3.30-5.50) M/uL Hgb (12.0-15.0) g/dL Hct (36.0-48.0) % MCV (80-98) fL MCH (27-31) pg MCHC (32-36) % Plt Count (150-400) K/uL Neut % (Auto) (36-66) % Lymph % (Auto) (24-44) % [place] % (Auto) (2-6) % Eos % (Auto) (2-4) % Baso % (Auto) (0-1) % Sodium (140-148) mmol/L Potassium (3.6-5.2) mmol/L Chloride (100-108) mmol/L Carbon Dioxide (21-32) mmol/L Anion Gap (5.0-14.0) mmol/L BUN (7-18) mg/dL Creatinine (0.6-1.0) mg/dL Est Cr Clr Drug Dosing mL/min Estimated GFR (MDRD) (>60) Glucose (74-106) mg/dL Calcium (8.5-10.1) mg/dL Troponin I (0.000-0.056) ng/mL Urine Color Yellow Urine Appearance Slightly cloudy Urine pH 5.0 (4.5-8.0) Ur Specific [place] 1.025 (1.008-1.030) Urine Protein Trace (NEGATIVE) mg/dL Urine Glucose (UA) Normal (NEGATIVE) mg/dL Urine Ketones Negative (NEGATIVE) mg/dL Urine Occult Blood Negative (NEGATIVE) Urine Nitrite Positive H (NEGATIVE) Urine Bilirubin Small (NEGATIVE) Urine Urobilinogen 1 (NORMAL) mg/dL Ur Leukocyte Esterase Small (NEGATIVE) Urine RBC 0-5 (0-5) Urine WBC 10-20 H (0-5) Ur Epithelial Cells Rare Amorphous Sediment Not seen Urine Bacteria Many Urine Mucus Not seen Result Diagrams: 05/24/17 10:30 05/24/17 10:30 *Q Meaningful Use (ADM) - VTE *Q VTE Criteria *Q: - VTE Risk Assess *Q Each Risk Factor Represents 1 Point: None Total Score 1 Point Risk Factors: 0 Each Risk Factor Represents 2 Points: None Total Score 2 Point Risk Factors: 0 Each Risk Factor Represents 3 Points: Age 75 Years or Greater Total Score 3 Point Risk Factors: 3 Each Risk Factor Represents 5 Points: None Total Score 5 Point Risk Factors: 0 Venous Thromboembolism Risk Factor Score *Q: 3 - Stroke *Q Stroke Criteria *Q: - AMI *Q AMI Criteria *Q: Problem List Initiated/Reviewed/Updated: Yes Orders Last 24hrs: Active Orders 24 hr Category Date Time Status Patient Status Manage Transfer [TRANSFER] Routine ADT 05/24/17 12:08 Ordered Chest 1V Frontal [CR] Stat Exams 05/24/17 10:13 Taken CULTURE URINE [RM] Stat Lab 05/24/17 11:09 Received Resuscitation Status Routine Resus Stat 05/24/17 12:08 Ordered Assessment/Plan Comment:: ASSESSMENT AND PLAN HYPOXIA-appears to be secondary to hypoventilation from sedation and lethargy. No evidence of pulmonary infiltrates or significant pulmonary infection. Hypoxia resolves when she is stimulated and becomes more alert. -Observation admission for monitoring -Supplemental oxygen as needed -Cardiac monitoring and continuous pulse oximetry -Nebulized albuterol as needed ESOPHAGEAL STRICTURE WITH OBSTRUCTION-obstruction resolved spontaneously, stricture dilated on EGD today -PPI therapy URINARY TRACT INFECTION-urinalysis positive for infection, no evidence of sepsis. -Urine culture pending -Rocephin 1 g IV every 24 hours DEMENTIA-monitor closely for delirium and agitation -Melatonin 9 mg by mouth daily at bedtime -Haldol 1 mg IV every 2 hours as needed for agitation PALLIATIVE CARE-family would like management of hypoxia and infection, no further aggressive evaluation or interventions MAINTENANCE ISSUES -DVT prophylaxis; Lovenox 40 mg subcutaneous daily -GI prophylaxis; Protonix -Downs catheter; not indicated -Nutrition; regular diet -Nicotinic dependence; not required CODE STATUS-DNR/DNI ADMISSION STATUS-this patient will be admitted to observation status, expect no more than a one night hospital stay for evaluation and management of problems as outlined above. DISPOSITION-anticipate discharge to [facility] after hospital stay PRIMARY CARE PROVIDER-
[2017-05-24] MEDS ORDERED: Polyethylene Glycol 3350 Powder 17 GM Packet PO PRN (12:54)
[2017-05-24] MEDS ORDERED: Albuterol 0.083% 2.5 MG/3 ML Neb Soln NEB PRN (12:54)
[2017-05-24] MEDS ORDERED: Magnesium Hydroxide 400 MG/5 ML Susp 30 ML Cup PO PRN (12:54)
[2017-05-24] MEDS ORDERED: Ondansetron 4 MG/2 ML SDV IV PRN (12:54)
[2017-05-24] MEDS ORDERED: Sodium Chloride 0.9% 10 ML Syringe FLUSH PRN (12:54)
[2017-05-24] MEDS ORDERED: Potassium Chloride 40 MEQ in Premix Bag 1 BAG IV ONE (12:54)
[2017-05-24] MEDS ORDERED: Docusate Sodium 100 MG Cap PO PRN (12:54)
[2017-05-24] MEDS ORDERED: Acetaminophen 325 MG Tab PO PRN (12:54)
[2017-05-24] MEDS ORDERED: Potassium Chloride 10% 20 MEQ/15 ML Soln 15 ML UD Cup PO ONE (12:54)
[2017-05-24] MEDS: Sodium Chloride 0.9% 1,000 ML IV SCH (13:25)
[2017-05-24] MEDS ORDERED: Potassium Chloride 20 MEQ Tab.ER PO ONE (13:30)
[2017-05-24] MEDS: Memantine 10 MG Tab PO SCH ×2 (13:38→22:12)
[2017-05-24] MEDS: Gabapentin 300 MG Cap PO SCH ×2 (13:39→22:10)
[2017-05-24] MEDS: Potassium Chloride 20 MEQ, Lidocaine 1% 2 ML in Sodium Chloride 0.9% 100 ML IV SCH ×2 (13:52→16:17)
[2017-05-24] MEDS ORDERED: Enoxaparin 40 MG/0.4 ML Syringe SUBCUT SCH (14:00)
[2017-05-24] MEDS: Melatonin 3 MG Tab PO SCH ×2 (15:11→22:11)
[2017-05-24] MEDS ORDERED: Haloperidol Lactate 5 MG/ML SDV IVPUSH PRN (15:25)
[2017-05-24] MEDS: Pantoprazole 40 MG Tab.CR PO SCH (16:15)
[2017-05-24] MEDS: Divalproex Sodium Delayed-Release 250 MG Tab.CR PO SCH (17:21)
[2017-05-24] MEDS ORDERED: OPTH EYEBOTH SCH (21:00)
[2017-05-24] MEDS ORDERED: LUMIGAN 0.01% EYEBOTH SCH (21:00)
[2017-05-24] MEDS ORDERED: Non-Formulary Medication 1 Each (Bimatoprost [Lumigan 0.01% Ophth Soln] 1 DROP) EYEBOTH SCH (21:00)
[2017-05-24] MEDS ORDERED: OLANZapine 5 MG Tab PO SCH ×2 (21:00)
[2017-05-24] MEDS ORDERED: Donepezil 10 MG Tab PO SCH (21:00)
[2017-05-24] MEDS ORDERED: DULoxetine 30 MG Cap PO SCH ×2 (21:00)
[2017-05-24] MEDS ORDERED: traZODone 50 MG Tab PO SCH (21:00)
[2017-05-24] MEDS ORDERED: Mirtazapine 15 MG Tab PO SCH (21:00)
[2017-05-25] MEDS: Sodium Chloride 0.9% 1,000 ML IV SCH (05:30)
[2017-05-25] MEDS ORDERED: Ferrous Sulfate 325 MG Tab PO SCH (08:00)
[2017-05-25] MEDS: Pantoprazole 40 MG Tab.CR PO SCH (08:08)
[2017-05-25] MEDS: Divalproex Sodium Delayed-Release 250 MG Tab.CR PO SCH (08:09)
[2017-05-25] MEDS: Memantine 10 MG Tab PO SCH (08:25)
[2017-05-25] MEDS: Gabapentin 300 MG Cap PO SCH (08:26)
[2017-05-25] MEDS ORDERED: NIFEdipine 30 MG Tab.ER PO SCH (09:00)
[2017-05-25] MEDS ORDERED: Folic Acid 1 MG Tab PO SCH (09:00)
[2017-05-25] MEDS ORDERED: Non-Formulary Medication 1 Each (Nifedipine [Adalat Cc] 60 MG) PO SCH (09:00)
[2017-05-25] MEDS: cefTRIAXone 1 GM in Sodium Chloride 0.9% 50 ML IV SCH ×2 (10:51→12:59)
[2017-05-25 11:00] VITALS: BP 86/48
--- NOTE | 2017-05-25 11:15 | PCM.DCSUM1 ---
Discharge Summary - Hospital Course Brief History: Ms. Flores is an 82-year-old woman who is admitted through the emergency department to observation status with lethargy and urinary tract infection. - Discharge Data Discharge Date: 05/25/17 Discharge Disposition: DC/Tfer to SNF 03 Condition: Fair - Discharge Diagnosis/Problem(s) (1) Acute cystitis without hematuria SNOMED Code(s): 92087277 ICD Code: N30.00 - ACUTE CYSTITIS WITHOUT HEMATURIA Status: Acute Current Visit: No (2) Dementia with behavioral disturbance SNOMED Code(s): 6105424237256 ICD Code: F03.91 - UNSPECIFIED DEMENTIA WITH BEHAVIORAL DISTURBANCE Status : Chronic Current Visit: No Qualifiers: Dementia type: Alzheimer's disease Alzheimer's disease onset: late-onset Qualified Code(s): G30.1 - Alzheimer's disease with late onset; F02.81 - Dementia in other diseases classified elsewhere with behavioral disturbance (3) Alteration consciousness SNOMED Code(s): 9087135 ICD Code: R40.4 - TRANSIENT ALTERATION OF AWARENESS Status: Acute Current Visit: No (4) Weakness SNOMED Code(s): 81061971 ICD Code: R53.1 - WEAKNESS Status: Acute Current Visit: No (5) Esophageal foreign body SNOMED Code(s): 40259593 ICD Code: T18.108A - UNSP FOREIGN BODY IN ESOPHAGUS CAUSING OTH INJURY, INIT Status: Acute Current Visit: No Qualifiers: Encounter type: initial encounter Qualified Code(s): T18.108A - Unspecified foreign body in esophagus causing other injury, initial encounter - Patient Summary/Data Hospital Course: Ms. Flores is an 82-year-old woman with a known history of dementia, she currently resides at the [facility]. She had difficulty with swallowing and esophageal obstruction 2 days ago and was brought into the emergency department for further evaluation. EGD was performed by Dr. Soto and during that period of time getting ready for the study and appeared that the obstruction had resolved. At the time of EGD there was no obstruction but significant inflammation the esophagus associated with a stricture. There was a large amount of fluid and food particles in the stomach, she was felt to have possibly aspirated. She was started on Augmentin and discharge back to the [facility] to return in the morning for EGD after the stomach had cleared. On follow-up EGD she was noted to have a stricture that was dilated. After the procedure was very lethargic and mildly hypoxic. She was evaluated in the emergency department and found to have a urinary tract infection, hypoxia was thought to be secondary to hypoventilation from medications used for the EGD. She was admitted to the hospital on observation status, urine culture was obtained which is pending at the time of discharge. She was treated with IV Rocephin and given IV fluids for hydration. By the following morning she was alert and interactive, daughter felt that she was very close to baseline. White blood cell count was elevated at 20,000 and improved to 14,000 prior to discharge. She did experience some mild agitation during hospitalization, she was started on melatonin at night and Depakote 250 mg twice daily. She will be continued on the melatonin post discharge. Activity will be as tolerated and she will resume her usual diet. She is been started on Protonix and will be on Protonix 40 mg twice daily after discharge for 2 weeks and then once daily thereafter. She will be treated with Omnicef 300 mg twice daily for an additional 5 days. - Patient Instructions Diet: Usual Diet as Tolerated Activity: As Tolerated - Discharge Plan Prescriptions/Med Rec: Cefdinir [Omnicef] 300 mg PO BID #10 cap Melatonin 10 mg PO DAILY #30 capsule Pantoprazole [ProTONIX] 40 mg PO DAILY #30 tab.cr Home Medications: Home Meds Acetaminophen 650 mg PO TID 03/23/17 [History] Alum Hydrox/Mag Hydrox/Simeth [Maalox Advanced] 15 ml PO Q6H PRN 03/23/17 [ History] Bimatoprost [LUMIGAN 0.01% Ophth Soln] 1 drop EYEBOTH BEDTIME 03/23/17 [History] Cyanocobalamin (Vitamin B-12) [Vitamin B-12] 1,000 mcg SL DAILY 03/23/17 [ History] Donepezil HCl 10 mg PO BEDTIME 03/23/17 [History] Ferrous Sulfate 325 mg PO DAILY 03/23/17 [History] Folic Acid 1 mg PO DAILY 03/23/17 [History] Gabapentin [Neurontin] 300 mg PO BID 03/23/17 [History] Lactose-Reduced Food [Ensure] 1 can PO BID 03/23/17 [History] Magnesium Hydroxide [Milk of Magnesia] 15 ml PO DAILY PRN 03/23/17 [History] Memantine [Namenda] 10 mg PO BID 03/23/17 [History] Mirtazapine 15 mg PO BEDTIME 03/23/17 [History] NIFEdipine [Adalat cc] 60 mg PO DAILY 03/23/17 [History] Naproxen Sodium 220 mg PO BID 03/23/17 [History] OLANZapine [Olanzapine] 2.5 mg PO BEDTIME 03/23/17 [History] Polyethylene Glycol 3350 [MiraLAX] 17 gm PO DAILY PRN 03/23/17 [History] Triamcinolone Acetonide [Triamcinolone Acetonide 0.1% Crm] 1 gm TOP BID PRN [History] traZODone HCl [Trazodone HCl] 50 mg PO BEDTIME 03/23/17 [History] Cefdinir [Omnicef] 300 mg PO BID #10 cap 05/25/17 [Rx] Melatonin 10 mg PO DAILY #30 capsule 05/25/17 [Rx] Pantoprazole [ProTONIX] 40 mg PO DAILY #30 tab.cr 05/25/17 [Rx] Forms: ED Department Discharge Referrals: PCP,None [Primary Care Provider] - - Patient Data Vitals - Most Recent: Last Vital Signs Temp 96.9 F 05/25/17 10:57 Pulse 75 05/25/17 10:59 Resp 16 05/25/17 10:59 BP 86/48 L 05/25/17 10:59 Pulse Ox 93 L 05/25/17 10:59 Weight - Most Recent: 126 lb 14.404 oz I&O - Last 24 hours: Intake & Output 05/24/17 05/25/17 05/25/17 22:59 06:59 14:59 Intake Total 480 1145 240 Balance 480 1145 240 Lab Results - Last 24 hrs: Laboratory Results - last 24 hr 05/25/17 05/25/17 Range/Units 05:54 05:54 WBC 14.0 H (4.5-11.0) K/uL RBC 3.21 L (3.30-5.50) M/uL Hgb 9.6 L (12.0-15.0) g/dL Hct 29.9 L (36.0-48.0) % MCV 93 (80-98) fL MCH 30 (27-31) pg MCHC 32 (32-36) % Plt Count 289 (150-400) K/uL Neut % (Auto) 83 H (36-66) % Lymph % (Auto) 9 L (24-44) % [place] % (Auto) 7 H (2-6) % Eos % (Auto) 1 L (2-4) % Baso % (Auto) 0 (0-1) % Sodium 146 (140-148) mmol/L Potassium 3.7 (3.6-5.2) mmol/L Chloride 112 H (100-108) mmol/L Carbon Dioxide 26 (21-32) mmol/L Anion Gap 11.7 (5.0-14.0) mmol/L BUN 15 (7-18) mg/dL Creatinine 0.7 (0.6-1.0) mg/dL Est Cr Clr Drug Dosing 57.58 mL/min Estimated GFR (MDRD) > 60 (>60) Glucose 98 (74-106) mg/dL Calcium 8.7 (8.5-10.1) mg/dL AFSHAN Results - Last 24 hrs: Microbiology 05/24/17 15:58 Clostridium difficile (PCR) - Final Stool / Feces NEGATIVE CDIFF TOXIN Med Orders - Current: Current Medications Acetaminophen (Tylenol) 650 mg PO Q4H PRN PRN Reason: Pain (Mild 1-3)/fever Albuterol (Proventil Neb Soln) 2.5 mg NEB Q4H PRN PRN Reason: Shortness Of Breath/wheezing Divalproex Sodium (Divalproex Sodium) 250 mg PO BIDMEALS [facility] Last Admin: 05/25/17 08:09 Dose: 250 mg Docusate Sodium (Colace) 100 mg PO BID PRN PRN Reason: Constipation Donepezil HCl (Aricept) 10 mg PO BEDTIME [facility] Last Admin: 05/24/17 22:12 Dose: 10 mg Duloxetine HCl (Cymbalta) 60 mg PO BEDTIME [facility] Last Admin: 05/24/17 22:11 Dose: 60 mg Enoxaparin Sodium (Lovenox) 40 mg SUBCUT Q24H [facility] Last Admin: 05/24/17 15:10 Dose: 40 mg Ferrous Sulfate (Ferrous Sulfate) 325 mg PO WITHBREAKFAST [facility] Last Admin: 05/25/17 08:25 Dose: 325 mg Folic Acid (Folic Acid) 1 mg PO DAILY [facility] Last Admin: 05/25/17 08:25 Dose: 1 mg Gabapentin (Neurontin) 300 mg PO BID [facility] Last Admin: 05/25/17 08:26 Dose: 300 mg Haloperidol Lactate (Haldol) 1 mg IVPUSH Q2H PRN PRN Reason: Agitation Last Admin: 05/24/17 17:26 Dose: 1 mg Ceftriaxone Sodium 1 gm/ (Sodium Chloride) 50 mls @ 100 mls/hr IV Q24H [facility] Last Admin: 05/25/17 10:51 Dose: 100 mls/hr Sodium Chloride (Normal Saline) 1,000 mls @ 75 mls/hr IV ASDIRECTED [facility] Last Admin: 05/25/17 05:30 Dose: 75 mls/hr Magnesium Hydroxide (Milk Of Magnesia) 30 ml PO Q12H PRN PRN Reason: Constipation Melatonin (Melatonin) 9 mg PO BEDTIME [facility] Last Admin: 05/24/17 22:11 Dose: 9 mg Memantine (Namenda) 10 mg PO BID [facility] Last Admin: 05/25/17 08:25 Dose: 10 mg Mirtazapine (Remeron) 15 mg PO BEDTIME [facility] Last Admin: 05/24/17 22:11 Dose: 15 mg Nifedipine (Procardia Xl) 60 mg PO DAILY [facility] Last Admin: 05/25/17 08:26 Dose: 60 mg Olanzapine (Zyprexa) 2.5 mg PO BEDTIME [facility] Last Admin: 05/24/17 22:06 Dose: 2.5 mg Ondansetron HCl (Zofran) 4 mg IV Q4H PRN PRN Reason: Nausea/Vomiting Pantoprazole Sodium (Protonix) 40 mg PO BIDAC [facility] Last Admin: 05/25/17 08:08 Dose: 40 mg [place] 0.01% Opth (Soln (Ptom)) 0 each EYEBOTH BEDTIME [facility] Last Admin: 05/24/17 22:03 Dose: 1 each Polyethylene Glycol (Miralax) 17 gm PO DAILY PRN PRN Reason: Constipation Sodium Chloride (Saline Flush) 10 ml FLUSH ASDIRECTED PRN PRN Reason: Keep Vein Open Trazodone HCl (Trazodone) 50 mg PO BEDTIME [facility] Last Admin: 05/24/17 22:07 Dose: 50 mg Discontinued Medications Duloxetine HCl (Cymbalta) 30 mg PO BEDTIME [facility] Ceftriaxone Sodium 1 gm/ (Sodium Chloride) 50 mls @ 100 mls/hr IV ONETIME ONE Stop: 05/24/17 11:42 Last Admin: 05/24/17 11:45 Dose: 100 mls/hr Potassium Chloride 20 meq/Lidocaine HCl 2 ml/ Sodium Chloride 112 mls @ 56 mls/ hr IV Q2H JA Stop: 05/24/17 17:59 Last Admin: 05/24/17 16:17 Dose: 56 mls/hr Olanzapine (Zyprexa) 5 mg PO BEDTIME [facility] Potassium Chloride (Klor-Con M20) 40 meq PO ONETIME ONE Stop: 05/24/17 13:31 Last Admin: 05/24/17 13:38 Dose: 40 meq *Q Meaningful Use (DIS) - VTE *Q VTE Criteria *Q: - Stroke *Q Stroke Criteria *Q: - AMI *Q AMI Criteria *Q:
--- NOTE | 2017-05-26 10:27 | CR ---
Chest 1V Frontal INDICATION: hypoxia FINDINGS: Comparison 03/23/2017. Normal heart size. New interstitial opacities in the left perihilar r egion are nonspecific. Early pneumonia is not excluded. Osteopenia. Advanced degenerative changes rig ht shoulder. Thoracic curve convex to the right.
== END 2017-05-25 13:30 ==
LOC: JP.ED 09:52 → JP.MS 12:08
PROVIDERS: ADMIT Hospitalist; ATTEND Hospitalist
DX: R09.02 Hypoxemia (principal); K22.2 Esophageal obstruction; N30.00 Acute cystitis without hematuria; G30.9 Alzheimer's disease, unspecified; F02.80 Dementia in other diseases classified elsewhere, unspecified severity, without behavioral disturbance, psychotic disturbance, mood disturbance, and anxiety; R40.4 Transient alteration of awareness; R53.1 Weakness; T18.108A Unspecified foreign body in esophagus causing other injury, initial encounter; I10 Essential (primary) hypertension; K21.9 Gastro-esophageal reflux disease without esophagitis; M19.90 Unspecified osteoarthritis, unspecified site; F32.9 Major depressive disorder, single episode, unspecified; Z79.899 Other long term (current) drug therapy; Z86.73 Personal history of transient ischemic attack (TIA), and cerebral infarction without residual deficits; Z90.49 Acquired absence of other specified parts of digestive tract; Z90.710 Acquired absence of both cervix and uterus; Z98.890 Other specified postprocedural states; K21.0 Gastro-esophageal reflux disease with esophagitis
CPT/HCPCS: 36415; 43233; 43235; 43239; 71010; 80048; 81001; 84484; 85025; 87086; 87088; 87186; 87493; 96361; 96365; 96366; 96367; 96372; 96375; 99285; A9270; G0378; J0696; J1630; J1650; J2704; J3480; J7030; J7040; J7050; 88305; 88312; 99217; 99219

== ENCOUNTER → 2017-05-24 | Day surgery (SDC) | payer MEDICARE, BC ==
[~2017-05-24] MED LIST changes: -Lidocaine 1% 2 ML ONE
[2017-05-24 09:39] VITALS: BP 105/63
--- NOTE | 2017-05-26 08:40 | OR ---
DATE OF PROCEDURE: 05/24/2017 PROCEDURE: 1. Esophagogastroduodenoscopy with dilation, balloon used is 36-[place]. 2. Biopsy of GE junction. COMPLICATIONS: None. COMPLIANCE PROFESSIONAL: None. ANESTHESIA: MAC. PREOPERATIVE DIAGNOSIS: Dysphagia. POSTOPERATIVE DIAGNOSIS: Dysphagia. RISKS: Risks, benefits, alternatives, and limitations, including, but not limited to infection, bleeding, and perforation were explained to the patient's family and the patient and they wished to proceed. PROCEDURE IN DETAIL: The patient was placed in left lateral decubitus position. The EGD scope was introduced and advanced atraumatically to the second part of the duodenum. On retroflex, there was no gastritis or ulcer. The patient has a hiatal hernia. Prior to this, a 36-[place] balloon was used to dilate the GE junction allowing the scope to be pass. This was biopsied in multiple locations using cold biopsy forceps. The air was removed. The esophagus was again noted to have retained food in this today, but significantly less. The patient tolerated the procedure well. Lamont Soto MD /[id number]
== END ==
LOC: JP.SDS 07:39
PROVIDERS: ATTEND Surgery
DX: K21.0 Gastro-esophageal reflux disease with esophagitis (principal); F32.9 Major depressive disorder, single episode, unspecified
CPT/HCPCS: 43233; 43239; J2704; J7040

== ENCOUNTER 2017-08-30 16:46 | Inpatient (IN) | payer MEDICARE, BC ==
--- NOTE | 2017-08-30 17:28 | EDM.PDOC ---
ED HPI GENERAL MEDICAL PROBLEM - General Chief Complaint: General Stated Complaint: FEVER Time Seen by Provider: 08/30/17 17:18 Source of Information: Reports: Family, Intermediate Records, RN Notes Reviewed History Limitations: Reports: Altered Mental Status - History of Present Illness INITIAL COMMENTS - FREE TEXT/NARRATIVE: 82-year-old female presents emergency department today with family for change in mental status was up moving around she does have a history of dementia but was communicative ambulating yesterday today was found to have a fever up to 100.2 has now become obtunded and is not ambulating minimally responsive therefore the majority of this H&P was taken from family and review of records. - Related Data Allergies Allergy/AdvReac Type Severity Reaction Status Date / Time No Known Allergies Allergy Verified 08/30/17 17:13 Home Meds: Home Meds Acetaminophen 650 mg PO TID 03/23/17 [History] Alum Hydrox/Mag Hydrox/Simeth [Maalox Advanced] 15 ml PO Q6H PRN 03/23/17 [ History] Bimatoprost [LUMIGAN 0.01% Ophth Soln] 1 drop EYEBOTH BEDTIME 03/23/17 [History] Cyanocobalamin (Vitamin B-12) [Vitamin B-12] 1,000 mcg SL DAILY 03/23/17 [ History] Donepezil HCl 10 mg PO BEDTIME 03/23/17 [History] Ferrous Sulfate 325 mg PO DAILY 03/23/17 [History] Folic Acid 1 mg PO DAILY 03/23/17 [History] Gabapentin [Neurontin] 300 mg PO BID 03/23/17 [History] Lactose-Reduced Food [Ensure] 1 can PO BID 03/23/17 [History] Magnesium Hydroxide [Milk of Magnesia] 15 ml PO DAILY PRN 03/23/17 [History] Memantine [Namenda] 10 mg PO BID 03/23/17 [History] Mirtazapine 15 mg PO BEDTIME 03/23/17 [History] NIFEdipine [Adalat cc] 60 mg PO DAILY 03/23/17 [History] Polyethylene Glycol 3350 [MiraLAX] 17 gm PO DAILY PRN 03/23/17 [History] Triamcinolone Acetonide [Triamcinolone Acetonide 0.1% Crm] 1 gm TOP BID PRN [History] traZODone HCl [Trazodone HCl] 50 mg PO BEDTIME 03/23/17 [History] Melatonin 10 mg PO DAILY #30 capsule 05/25/17 [Rx] Pantoprazole [ProTONIX] 40 mg PO DAILY #30 tab.cr 05/25/17 [Rx] Bimatoprost [LUMIGAN 0.01% Ophth Soln] 1 drop TOP DAILY 08/30/17 [History] Donepezil HCl [Donepezil HCl] 1 tab PO BEDTIME 08/30/17 [History] Gabapentin [Neurontin] 1 tab PO DAILY 08/30/17 [History] fentaNYL [Duragesic] 1 patch TOP ASDIRECTED 08/30/17 [History] Past Medical History HEENT History: Reports: Hard of Hearing Other HEENT History: does not have hearing aid with. Cardiovascular History: Reports: Hypertension Gastrointestinal History: Reports: GERD, Hiatal Hernia Genitourinary History: Reports: UTI, Recurrent Musculoskeletal History: Reports: Back Pain, Chronic, Osteoarthritis 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, CVA, TIA Psychiatric History: Reports: Dementia, Depression Other Psychiatric History: paranoid and hallucinationations Hematologic History: Reports: Anemia, B12 Deficiency, Iron Deficiency - Infectious Disease History Infectious Disease History: Reports: Chicken Pox, Measles, Mumps - Past Surgical History GI Surgical History: Reports: Cholecystectomy Female Surgical History: Reports: Hysterectomy Other Female Surgeries/Procedures: bladder suspension Social & Family History - Family History Family Medical History: Noncontributory - Tobacco Use Smoking Status *Q: Never Smoker Years of Tobacco use: 50 Packs/Tins Daily: 1 Used Tobacco, but Quit: Yes Month Tobacco Last Used: 2013 Second Hand Smoke Exposure: No - Caffeine Use Caffeine Use: Reports: Coffee - Alcohol Use Days Per Week of Alcohol Use: 0 - Recreational Drug Use Recreational Drug Use: No ED ROS GENERAL - Review of Systems Review Of Systems: Unable To Obtain ED EXAM, GENERAL - Physical Exam Exam: See Below Exam Limited By: Altered Mental Status General Appearance: Obtunded Eye Exam: Bilateral Eye: Normal Inspection Ears: Other (Blocked by cerumen bilaterally) Nose: Normal Inspection, Normal Mucosa, No Blood Throat/Mouth: Normal Inspection, Normal Lips, Normal Teeth, Normal Gums, No Airway Compromise, Other (Dry mouth) Head: Atraumatic, Normocephalic Neck: Normal Inspection, Supple, Non-Tender, Full Range of Motion Respiratory/Chest: No Respiratory Distress, Lungs Clear, Normal Breath Sounds, No Accessory Muscle Use Cardiovascular: Regular Rate, Rhythm, No Murmur GI/Abdominal: Soft, Non-Tender Extremities: Normal Inspection, No Pedal Edema Course - Vital Signs Last Recorded V/S: Last Vital Signs Temp 99.9 F 08/30/17 17:07 Pulse 76 08/30/17 17:07 Resp 15 08/30/17 17:07 BP 106/59 L 08/30/17 17:07 Pulse Ox 89 L 08/30/17 17:07 - Orders/Labs/Meds Orders: Active Orders 24 hr Category Date Time Status Vital Signs [RC] Q1H Care 08/30/17 17:23 Active CULTURE BLOOD [BC] Urgent Lab 08/30/17 17:30 Received CULTURE BLOOD [BC] Urgent Lab 08/30/17 17:40 Received Lactated Ringers [Ringers, Lactated] 1,000 ml Med 08/30/17 17:30 Active IV ASDIRECTED Piperacillin/Tazobactam [Zosyn] 4.5 gm Med 08/30/17 17:30 Active Sodium Chloride 0.9% [Normal Saline] 100 ml IV Q6H cefTRIAXone [Rocephin] 1 gm Med 08/30/17 18:36 Ordered Sodium Chloride 0.9% [Normal Saline] 50 ml IV ONETIME Blood Culture x2 Reflex Set [OM.PC] Urgent Oth 08/30/17 17:23 Ordered Medication Orders Lactated Ringer's (Ringers, Lactated) 1,000 mls @ 500 mls/hr IV ASDIRECTED JA Last Admin: 08/30/17 18:03 Dose: 500 mls/hr Piperacillin Sod/Tazobactam (Sod 4.5 gm/ Sodium Chloride) 100 mls @ 200 mls/hr IV Q6H JA Last Admin: 08/30/17 18:03 Dose: 200 mls/hr Ceftriaxone Sodium 1 gm/ (Sodium Chloride) 50 mls @ 100 mls/hr IV ONETIME ONE Stop: 08/30/17 19:05 Labs: Laboratory Tests 08/30/17 08/30/17 08/30/17 Range/Units 17:30 17:30 17:30 WBC 18.5 H (4.5-11.0) K/uL RBC 3.70 (3.30-5.50) M/uL Hgb 10.9 L (12.0-15.0) g/dL Hct 34.0 L (36.0-48.0) % MCV 92 (80-98) fL MCH 30 (27-31) pg MCHC 32 (32-36) % Plt Count 424 H (150-400) K/uL Neut % (Auto) 84 H (36-66) % Lymph % (Auto) 8 L (24-44) % [place] % (Auto) 7 H (2-6) % Eos % (Auto) 0 L (2-4) % Baso % (Auto) 0 (0-1) % Sodium 140 (140-148) mmol/L Potassium 3.6 (3.6-5.2) mmol/L Chloride 103 (100-108) mmol/L Carbon Dioxide 30 (21-32) mmol/L Anion Gap 7.4 (5.0-14.0) mmol/L BUN 12 (7-18) mg/dL Creatinine 0.9 (0.6-1.0) mg/dL Est Cr Clr Drug Dosing 44.86 mL/min Estimated GFR (MDRD) > 60 (>60) Glucose 105 (74-106) mg/dL Lactic Acid 1.0 (0.4-2.0) mmol/L Calcium 9.2 (8.5-10.1) mg/dL Total Bilirubin 0.5 D (0.2-1.0) mg/dL AST 21 (15-37) U/L ALT 19 (12-78) U/L Alkaline Phosphatase 82 (46-116) U/L C-Reactive Protein 10.86 H (0.0-0.3) mg/dL Total Protein 7.0 (6.4-8.2) g/dL Albumin 3.1 L (3.4-5.0) g/dL Globulin 3.9 H (2.3-3.5) g/dL Albumin/Globulin Ratio 0.8 L (1.2-2.2) Urine Color Urine Appearance Urine pH (4.5-8.0) Ur Specific [place] (1.008-1.030) Urine Protein (NEGATIVE) mg/dL Urine Glucose (UA) (NEGATIVE) mg/dL Urine Ketones (NEGATIVE) mg/dL Urine Occult Blood (NEGATIVE) Urine Nitrite (NEGATIVE) Urine Bilirubin (NEGATIVE) Urine Urobilinogen (NORMAL) mg/dL Ur Leukocyte Esterase (NEGATIVE) Urine RBC (0-5) Urine WBC (0-5) Ur Epithelial Cells Amorphous Sediment Urine Bacteria Urine Mucus 08/30/17 Range/Units 18:19 WBC (4.5-11.0) K/uL RBC (3.30-5.50) M/uL Hgb (12.0-15.0) g/dL Hct (36.0-48.0) % MCV (80-98) fL MCH (27-31) pg MCHC (32-36) % Plt Count (150-400) K/uL Neut % (Auto) (36-66) % Lymph % (Auto) (24-44) % [place] % (Auto) (2-6) % Eos % (Auto) (2-4) % Baso % (Auto) (0-1) % Sodium (140-148) mmol/L Potassium (3.6-5.2) mmol/L Chloride (100-108) mmol/L Carbon Dioxide (21-32) mmol/L Anion Gap (5.0-14.0) mmol/L BUN (7-18) mg/dL Creatinine (0.6-1.0) mg/dL Est Cr Clr Drug Dosing mL/min Estimated GFR (MDRD) (>60) Glucose (74-106) mg/dL Lactic Acid (0.4-2.0) mmol/L Calcium (8.5-10.1) mg/dL Total Bilirubin (0.2-1.0) mg/dL AST (15-37) U/L ALT (12-78) U/L Alkaline Phosphatase (46-116) U/L C-Reactive Protein (0.0-0.3) mg/dL Total Protein (6.4-8.2) g/dL Albumin (3.4-5.0) g/dL Globulin (2.3-3.5) g/dL Albumin/Globulin Ratio (1.2-2.2) Urine Color Yellow Urine Appearance Turbid Urine pH 7.0 (4.5-8.0) Ur Specific [place] 1.010 (1.008-1.030) Urine Protein Negative (NEGATIVE) mg/dL Urine Glucose (UA) Normal (NEGATIVE) mg/dL Urine Ketones Negative (NEGATIVE) mg/dL Urine Occult Blood Negative (NEGATIVE) Urine Nitrite Negative (NEGATIVE) Urine Bilirubin Negative (NEGATIVE) Urine Urobilinogen Normal (NORMAL) mg/dL Ur Leukocyte Esterase Large (NEGATIVE) Urine RBC 0-5 (0-5) Urine WBC Semi-packed H (0-5) Ur Epithelial Cells Moderate Amorphous Sediment Few Urine Bacteria Many Urine Mucus Few Meds: Medications Generic Name Dose Route Start Last Admin Trade Name Freq PRN Reason Stop Dose Admin Lactated Ringer's 1,000 mls @ 500 mls/hr 08/30/17 17:30 08/30/17 18:03 Ringers, Lactated IV 500 mls/hr ASDIRECTED JA Administration Piperacillin Sod/Tazobactam 100 mls @ 200 mls/hr 08/30/17 17:30 08/30/17 18: 03 Sod 4.5 gm/ Sodium Chloride IV 200 mls/hr Q6H JA Administration Ceftriaxone Sodium 1 gm/ 50 mls @ 100 mls/hr 08/30/17 18:36 Sodium Chloride IV 08/30/17 19:05 ONETIME ONE Discontinued Medications Generic Name Dose Route Start Last Admin Trade Name Freq PRN Reason Stop Dose Admin Sodium Chloride Confirm 08/30/17 17:58 08/30/17 18:07 Normal Saline Administered 08/30/17 17:59 Not Given Dose 100 mls @ as directed .ROUTE .STK-MED ONE Departure - Departure Time of Disposition: 18:40 Disposition: Home, Self-Care 01 Condition: Poor Clinical Impression: Sepsis Qualifiers: Sepsis type: sepsis due to unspecified organism Qualified Code(s): A41.9 - Sepsis, unspecified organism - Discharge Information Referrals: Morris Grayson NP [Primary Care Provider] - Forms: ED Department Discharge - My Orders Last 24 Hours: My Active Orders 08/30/17 17:23 Vital Signs [RC] Q1H Blood Culture x2 Reflex Set [OM.PC] Urgent 08/30/17 17:30 CULTURE BLOOD [BC] Urgent Lactated Ringers [Ringers, Lactated] 1,000 ml IV ASDIRECTED Piperacillin/Tazobactam [Zosyn] 4.5 gm Sodium Chloride 0.9% [Normal Saline] 100 ml IV Q6H 08/30/17 17:40 CULTURE BLOOD [BC] Urgent 08/30/17 18:36 cefTRIAXone [Rocephin] 1 gm Sodium Chloride 0.9% [Normal Saline] 50 ml IV ONETIME - Assessment/Plan Last 24 Hours: My Active Orders 08/30/17 17:23 Vital Signs [RC] Q1H Blood Culture x2 Reflex Set [OM.PC] Urgent 08/30/17 17:30 CULTURE BLOOD [BC] Urgent Lactated Ringers [Ringers, Lactated] 1,000 ml IV ASDIRECTED Piperacillin/Tazobactam [Zosyn] 4.5 gm Sodium Chloride 0.9% [Normal Saline] 100 ml IV Q6H 08/30/17 17:40 CULTURE BLOOD [BC] Urgent 08/30/17 18:36 cefTRIAXone [Rocephin] 1 gm Sodium Chloride 0.9% [Normal Saline] 50 ml IV ONETIME Plan: Assessment Acuity = acute Site and laterality = sepsis secondary to urinary tract infection complicated patient with history of dementia Etiology = probable bacterial cause Manifestations = obtunded Location of injury = Home Lab values = WBC elevated 18.5 consistent leukocytosis, hemoglobin low at 10.9 consistent normochromic anemia CRP elevated at 10.8 albumin low at 2.1 consistent with hypoalbuminemia lactic acid normal at 1.0 urinalysis reveals semi-packed WBCs consistent with pyuria cultures pending blood cultures are pending Plan She did receive initial dose of levofloxacin as well as 1 L fluid this was secondary switched to Rocephin after discovery of urinary tract infection, discussed case with hospitalist on-call they agreed to evaluate the patient emergency department for admission she is a DNR/DNI Patient was in agreement with the plan all questions were answered, they were instructed to return to the emergency department or call for worsening symptoms. This note was dictated using [employer] voice recognition software please call with any questions.
[2017-08-30] MEDS ORDERED: Piperacillin/Tazobactam 4.5 GM in Sodium Chloride 0.9% 100 ML IV SCH (17:30)
[2017-08-30] MEDS ORDERED: Lactated Ringers 1,000 ML IV SCH (17:30)
[2017-08-30] MEDS ORDERED: Sodium Chloride 0.9% 100 ML ONE (17:58)
[2017-08-30] MEDS ORDERED: cefTRIAXone 1 GM in Sodium Chloride 0.9% 50 ML IV ONE (18:36)
[2017-08-30] MEDS ORDERED: Ondansetron 4 MG Tab.DIS PO PRN (20:44)
[2017-08-30] MEDS ORDERED: Acetaminophen 325 MG Tab PO PRN (20:44)
[2017-08-30] MEDS ORDERED: Docusate Sodium 100 MG Cap PO PRN (20:44)
[2017-08-30] MEDS ORDERED: LORazepam 2 MG/ML MDV IV PRN (20:44)
[2017-08-30] MEDS ORDERED: Non-Formulary Medication 1 Each (Melatonin [Melatonin] 10 MG) PO SCH (20:44)
[2017-08-30] MEDS ORDERED: oxyCODONE 5 MG Tab PO PRN (20:44)
[2017-08-30] MEDS ORDERED: Sodium Chloride 0.9% 1,000 ML IV SCH (20:44)
[2017-08-30] MEDS ORDERED: Morphine 2 MG/ML Syringe IVPUSH PRN (20:44)
[2017-08-30] MEDS ORDERED: Albuterol 0.083% 2.5 MG/3 ML Neb Soln NEB PRN (20:44)
[2017-08-30] MEDS ORDERED: Ondansetron 4 MG/2 ML SDV IV PRN (20:44)
[2017-08-30] MEDS ORDERED: Aluminum Hydroxide/Magnesium Hydroxide/Simethicone Susp 30 ML Cup PO PRN (20:44)
[2017-08-30] MEDS ORDERED: Non-Formulary Medication 1 Each (Bimatoprost [Lumigan 0.01% Ophth Soln] 1 DROP) EYEBOTH SCH (21:00)
[2017-08-30] MEDS ORDERED: LACTOSE REDUCED FOOD PO SCH (21:00)
[2017-08-30] MEDS ORDERED: Gabapentin 300 MG Cap PO SCH (21:00)
[2017-08-30] MEDS ORDERED: Latanoprost 0.005% Ophth Soln 2.5 ML Bottle EYEBOTH SCH (21:30)
[2017-08-30] MEDS: Acetaminophen 325 MG Tab PO SCH (22:33)
[2017-08-30] MEDS: traZODone 50 MG Tab PO SCH (22:33)
[2017-08-30] MEDS: Mirtazapine 15 MG Tab PO SCH (22:33)
[2017-08-30] MEDS: Donepezil 10 MG Tab PO SCH (22:34)
[2017-08-30] MEDS: Memantine 10 MG Tab PO SCH (22:47)
--- NOTE | 2017-08-30 23:07 | PCM.HP ---
H&P History of Present Illness - General Date of Service: 08/30/17 Admit Problem/Dx: Admission Diagnosis/Problem Admission Diagnosis/Problem Urosepsis Source of Information: Family (Daughter Yoly, RN), Senior Care Records History Limitations: Reports: Altered Mental Status - History of Present Illness Initial Comments - Free Text/Narative: 82-year-old female presents emergency department today with family for change in mental status was up moving around she does have a history of dementia but was communicative ambulating yesterday today was found to have a fever up to 100.2 has now become obtunded and is not ambulating minimally responsive therefore the majority of this H&P was taken from family and review of records. Acuity = acute Site and laterality = sepsis secondary to urinary tract infection complicated patient with history of dementia Etiology = probable bacterial cause Manifestations = obtunded Location of injury = Home Lab values = WBC elevated 18.5 consistent leukocytosis, hemoglobin low at 10.9 consistent normochromic anemia CRP elevated at 10.8 albumin low at 2.1 consistent with hypoalbuminemia lactic acid normal at 1.0 urinalysis reveals semi-packed WBCs consistent with pyuria cultures pending blood cultures are pending Plan She did receive initial dose of levofloxacin as well as 1 L fluid this was secondary switched to Rocephin after discovery of urinary tract infection, discussed case with hospitalist on-call they agreed to evaluate the patient emergency department for admission she is a DNR/DNI Pallative/comfort measures. Onset of Symptoms: Reports: Today Duration of Symptoms: Reports: Getting Worse Location: Reports: Generalized (profound weakness / lethargy) Quality: Reports: Same as Previous Episode (This is the third UTI this year.) Severity: Severe Improves with: Reports: None, Medication Worsens with: Reports: None Context: Reports: Other (incontinence of bowel and bladder increased risk of infection) Associated Symptoms: Reports: Confusion, Fever/Chills, Loss of Appetite (did not eat or drink today), Weakness - Related Data Allergies/Adverse Reactions: Allergies Allergy/AdvReac Type Severity Reaction Status Date / Time No Known Allergies Allergy Verified 08/30/17 17:13 Home Medications: Home Meds Acetaminophen 650 mg PO TID 03/23/17 [History] Alum Hydrox/Mag Hydrox/Simeth [Maalox Advanced] 15 ml PO Q6H PRN 03/23/17 [ History] Bimatoprost [LUMIGAN 0.01% Ophth Soln] 1 drop EYEBOTH BEDTIME 03/23/17 [History] Cyanocobalamin (Vitamin B-12) [Vitamin B-12] 1,000 mcg SL DAILY 03/23/17 [ History] Donepezil HCl 10 mg PO BEDTIME 03/23/17 [History] Ferrous Sulfate 325 mg PO DAILY 03/23/17 [History] Folic Acid 1 mg PO DAILY 03/23/17 [History] Lactose-Reduced Food [Ensure] 1 can PO BID 03/23/17 [History] Magnesium Hydroxide [Milk of Magnesia] 15 ml PO DAILY PRN 03/23/17 [History] Memantine [Namenda] 10 mg PO BID 03/23/17 [History] Mirtazapine 15 mg PO BEDTIME 03/23/17 [History] NIFEdipine [Adalat cc] 60 mg PO DAILY 03/23/17 [History] Polyethylene Glycol 3350 [MiraLAX] 17 gm PO DAILY PRN 03/23/17 [History] Triamcinolone Acetonide [Triamcinolone Acetonide 0.1% Crm] 1 gm TOP BID PRN [History] traZODone HCl [Trazodone HCl] 50 mg PO BEDTIME 03/23/17 [History] Melatonin 10 mg PO DAILY #30 capsule 05/25/17 [Rx] Pantoprazole [ProTONIX] 40 mg PO DAILY #30 tab.cr 05/25/17 [Rx] Gabapentin [Neurontin] 300 mg PO DAILY 08/30/17 [History] fentaNYL [Duragesic] 1 patch TOP ASDIRECTED 08/30/17 [History] Past Medical History HEENT History: Reports: Hard of Hearing Other HEENT History: does not have hearing aid with. Cardiovascular History: Reports: Hypertension Gastrointestinal History: Reports: GERD, Hiatal Hernia Genitourinary History: Reports: UTI, Recurrent Musculoskeletal History: Reports: Back Pain, Chronic, Osteoarthritis 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, CVA, TIA Psychiatric History: Reports: Dementia, Depression Other Psychiatric History: paranoid and hallucinationations Hematologic History: Reports: Anemia, B12 Deficiency, Iron Deficiency - Infectious Disease History Infectious Disease History: Reports: Chicken Pox, Measles, Mumps - Past Surgical History GI Surgical History: Reports: Cholecystectomy Female Surgical History: Reports: Hysterectomy Other Female Surgeries/Procedures: bladder suspension Social & Family History - Family History Family Medical History: Noncontributory - Tobacco Use Smoking Status *Q: Former Smoker Years of Tobacco use: 55 Packs/Tins Daily: 1 Used Tobacco, but Quit: Yes Month Tobacco Last Used: 2012 Second Hand Smoke Exposure: No - Caffeine Use Caffeine Use: Reports: Coffee - Alcohol Use Days Per Week of Alcohol Use: 0 - Recreational Drug Use Recreational Drug Use: No - Living Situation & Occupation Living situation: Reports: Extended Care Facility (prior to onset of Dementia, 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 Has 3 children; 2 daughters 1 son. Daughter Yoly has P.O.A.) Occupation: Disabled H&P Review of Systems - Review of Systems: Review Of Systems: See Below General: Reports: Fever, Chills, Weakness, Decreased Appetite, Other ( lethargic. babbling, incohert speech patterns. ) HEENT: Reports: Glasses, Hearing Changes (hear of hearing, lost her hearing aides.), Other (dentures) Pulmonary: Reports: No Symptoms Cardiovascular: Reports: Other (hx of hypertension controlled with medication) Gastrointestinal: Reports: Decreased Appetite, Stool Incontinence Genitourinary: Reports: Incontinence, Other (hx of recurrent UTI. decreased urine output noted today.) Musculoskeletal: Reports: Back Pain, Muscle Pain, Muscle Stiffness, Other ( chronic pain) Skin: Reports: Pallor, Other (coccyx with redness.) Psychiatric: Reports: Other (demenia with paranoid and delusional tendencies.) Neurological: Reports: Pre-Existing Deficit, Other (dementia) Immunologic: Reports: No Symptoms Exam - Exam Exam: See Below - Vital Signs Vital Signs: Last Vital Signs Temp 36.4 C 08/30/17 21: Pulse 70 08/30/17 21:02 Resp 16 08/30/17 21:02 BP 107/59 L 08/30/17 21:02 Pulse Ox 93 L 08/30/17 22:49 Weight: 61.19 kg - Exam Quality Assessment: Supplemental Oxygen (oxygen 2liters per nasal cannula), Urinary Catheter (place in ER.), Skin Breakdown (coccyx with redness, no break down of skin.), Other General: Lethargic, Other (dementia, advanced, unable to communicate) HEENT: PERRLA, Nares Patent, Normal Nasal Septum, Pupils Reactive, TMs Clear, Other (glasses, dentures present.) Neck: Supple, Trachea Midline Lungs: Clear to Auscultation, Normal Respiratory Effort Cardiovascular: Regular Rate, Regular Rhythm, Normal S1, Normal S2 GI/Abdominal Exam: Normal Bowel Sounds, Soft, Non-Tender, No Organomegaly, No Distention, No Abnormal Bruit, No Mass, Pelvis Stable (Female) Exam: Deferred Rectal (Female) Exam: Deferred Back Exam: Normal Inspection Extremities: Normal Inspection, Normal Range of Motion, Non-Tender, No Pedal Edema, Normal Capillary Refill Peripheral Pulses: 2+: Posterior Tibial (L), Posterior Tibial (R), Dorsalis Pedis (L), Dorsalis Pedis (R) Skin: Warm, Dry, Intact, Other (skin noted to be bright red to lower back and coccyx.) Neuro Extensive - Mental Status: Disorientation to Place, Opens Eyes to Commands Neuro Extensive - Motor, Sensory, Reflexes: Motor/Sensory Deficits Psychiatric: Other (lethargic) - Patient Data Result Diagrams: 08/30/17 17:30 08/30/17 17:30 *Q Meaningful Use (ADM) - VTE *Q VTE Criteria *Q: - Stroke *Q Stroke Criteria *Q: - AMI *Q AMI Criteria *Q: - Problem List (1) Palliative care status SNOMED Code(s): 105861670 ICD Code: Z51.5 - ENCOUNTER FOR PALLIATIVE CARE Status: Acute Priority: Medium Current Visit: Yes (2) Sepsis SNOMED Code(s): 78596732 ICD Code: A41.9 - SEPSIS, UNSPECIFIED ORGANISM Status: Acute Priority: High Current Visit: Yes Qualifiers: Sepsis type: sepsis due to unspecified organism Qualified Code(s): A41.9 - Sepsis, unspecified organism (3) UTI, Urinary tract infectious disease SNOMED Code(s): 51175911 ICD Code: N39.0 - URINARY TRACT INFECTION, SITE NOT SPECIFIED Status: Acute Priority: High Current Visit: Yes (4) Dementia with behavioral disturbance SNOMED Code(s): 5237298066918 ICD Code: F03.91 - UNSPECIFIED DEMENTIA WITH BEHAVIORAL DISTURBANCE Status : Chronic Priority: High Current Visit: Yes Qualifiers: Dementia type: Alzheimer's disease Alzheimer's disease onset: late-onset Qualified Code(s): G30.1 - Alzheimer's disease with late onset; F02.81 - Dementia in other diseases classified elsewhere with behavioral disturbance Problem List Initiated/Reviewed/Updated: Yes Orders Last 24hrs: Active Orders 24 hr Category Date Time Status Bedrest Bedside Commode [RC] ASDIRECTED Care 08/30/17 20:44 Active Intake and Output [RC] QSHIFT Care 08/30/17 20:44 Active Notify Provider Vital Signs [RC] ASDIRECTED Care 08/30/17 20:44 Active Oxygen Therapy [RC] .PRN Care 08/30/17 20:44 Active Pulse Oximetry [RC] PRN Care 08/30/17 20:44 Active RT Aerosol Therapy [RC] ASDIRECTED Care 08/30/17 20:44 Active VTE/DVT Education [RC] Per Unit Routine Care 08/30/17 20:44 Active Vital Signs [RC] Q4H Care 08/30/17 20:44 Active Consult to Case Management [CONS] Routine Cons 08/30/17 20:44 Active Regular Diet [DIET] Diet 08/30/17 Breakfast Active BASIC METABOLIC PANEL,BMP [CHEM] AM Lab 08/31/17 05:11 Ordered C-REACTIVE PROTEIN [CHEM] AM Lab 08/31/17 05:11 Ordered CBC WITH AUTO DIFF [HEME] AM Lab 08/31/17 05:11 Ordered Acetaminophen [Tylenol] Med 08/30/17 20:44 Active 650 mg PO Q4H PRN Acetaminophen [Tylenol] Med 08/30/17 21:00 Active 650 mg PO TID Albuterol [Proventil Neb Soln] Med 08/30/17 20:44 Active 2.5 mg NEB Q4H PRN Alum Hydrox/Mag Hydrox/Simeth [Mag-Al Plus] Med 08/30/17 20:44 Active 15 ml PO Q6H PRN Bimatoprost [LUMIGAN 0.01% Ophth Soln] Med 08/31/17 09:00 Pending 1 drop TOP DAILY Cyanocobalamin (Vitamin B12) [Vitamin B12] Med 08/31/17 09:00 Active 1,000 mcg PO DAILY Docusate Sodium [Colace] Med 08/30/17 20:44 Active 100 mg PO BID PRN Donepezil [Aricept] Med 08/30/17 21:00 Active 10 mg PO BEDTIME Enoxaparin [Lovenox] Med 08/31/17 09:00 Active 40 mg SUBCUT DAILY Ferrous Sulfate Med 08/31/17 09:00 Active 325 mg PO DAILY Folic Acid Med 08/31/17 09:00 Active 1 mg PO DAILY Gabapentin [Neurontin] Med 08/31/17 09:00 Hold 300 mg PO DAILY LORazepam [Ativan] Med 08/30/17 20:44 Active 1 mg IV Q6H PRN Lactose-Reduced Food [Ensure] Med 08/30/17 21:00 Pending 1 can PO BID Latanoprost [Xalatan 0.005% Ophth Soln] Med 08/30/17 21:30 Active 0 ml EYEBOTH BEDTIME Melatonin Med 08/31/17 21:00 Ordered 9 mg PO BEDTIME Memantine [Namenda] Med 08/30/17 21:00 Active 10 mg PO BID Mirtazapine [Remeron] Med 08/30/17 21:00 Active 15 mg PO BEDTIME Morphine Med 08/30/17 20:44 Active 2 mg IVPUSH Q2H PRN NIFEdipine [Procardia XL] Med 08/31/17 09:00 Active 60 mg PO DAILY Non-Formulary Medication [NF Drug] Med 08/31/17 09:00 Active 1 each .XX DAILY Ondansetron [Zofran ODT] Med 08/30/17 20:44 Active 4 mg PO Q6H PRN Ondansetron [Zofran] Med 08/30/17 20:44 Active 4 mg IV Q4H PRN Pantoprazole [ProTONIX] Med 08/31/17 07:30 Active 40 mg PO DAILY@0730 Piperacillin/Tazobactam [Zosyn] 4.5 gm Med 08/31/17 00:00 Active Sodium Chloride 0.9% [Normal Saline] 100 ml IV Q6H Sodium Chloride 0.9% [Normal Saline] 1,000 ml Med 08/30/17 20:44 Active IV ASDIRECTED Sodium Chloride 0.9% [Normal Saline] 1,000 ml Med 08/31/17 00:43 Active IV ASDIRECTED cefTRIAXone [Rocephin] 1 gm Med 08/31/17 17:30 Active Sodium Chloride 0.9% [Normal Saline] 50 ml IV Q24H fentaNYL [Duragesic] Med 09/01/17 09:00 Active 12 mcg TOP Q48H oxyCODONE Med 08/30/17 20:44 Active 5 mg PO Q4H PRN traZODone Med 08/30/17 21:00 Active 50 mg PO BEDTIME Resuscitation Status Routine Resus Stat 08/30/17 20:19 Ordered Medication Orders Acetaminophen (Tylenol) 650 mg PO Q4H PRN PRN Reason: Pain (Mild 1-3)/fever Acetaminophen (Tylenol) 650 mg PO TID [facility] Last Admin: 08/30/17 22:33 Dose: 650 mg Al Hydroxide/Mg Hydroxide (Mag-Al Plus) 15 ml PO Q6H PRN PRN Reason: Indigestion Albuterol (Proventil Neb Soln) 2.5 mg NEB Q4H PRN PRN Reason: Shortness Of Breath/wheezing Cyanocobalamin (Vitamin B12) 1,000 mcg PO DAILY [facility] Docusate Sodium (Colace) 100 mg PO BID PRN PRN Reason: Constipation Donepezil HCl (Aricept) 10 mg PO BEDTIME [facility] Last Admin: 08/30/17 22:34 Dose: 10 mg Enoxaparin Sodium (Lovenox) 40 mg SUBCUT DAILY [facility] Fentanyl (Duragesic) 12 mcg TOP Q48H [facility] Ferrous Sulfate (Ferrous Sulfate) 325 mg PO DAILY [facility] Folic Acid (Folic Acid) 1 mg PO DAILY [facility] Gabapentin (Neurontin) 300 mg PO DAILY [facility] Lactated Ringer's (Ringers, Lactated) 1,000 mls @ 500 mls/hr IV ASDIRECTED [facility] Last Admin: 08/30/17 18:03 Dose: 500 mls/hr Ceftriaxone Sodium 1 gm/ (Sodium Chloride) 50 mls @ 100 mls/hr IV Q24H [facility] Piperacillin Sod/Tazobactam (Sod 4.5 gm/ Sodium Chloride) 100 mls @ 200 mls/hr IV Q6H [facility] Sodium Chloride (Normal Saline) 1,000 mls @ 250 mls/hr IV ASDIRECTED [facility] Stop: 08/31/17 00:43 Last Admin: 08/30/17 22:33 Dose: 250 mls/hr Sodium Chloride (Normal Saline) 1,000 mls @ 100 mls/hr IV ASDIRECTED [facility] Latanoprost (Xalatan 0.005% Ophth Soln) 0 ml EYEBOTH BEDTIME [facility] Last Admin: 08/30/17 22:34 Dose: 1 drop Lorazepam (Ativan) 1 mg IV Q6H PRN PRN Reason: Nausea/Vomiting Melatonin (Melatonin) 9 mg PO BEDTIME [facility] Memantine (Namenda) 10 mg PO BID [facility] Last Admin: 08/30/17 22:47 Dose: 10 mg Mirtazapine (Remeron) 15 mg PO BEDTIME [facility] Last Admin: 08/30/17 22:33 Dose: 15 mg Morphine Sulfate (Morphine) 2 mg IVPUSH Q2H PRN PRN Reason: Pain (severe 7-10) Nifedipine (Procardia Xl) 60 mg PO DAILY [facility] Non-Formulary Medication (Bimatoprost [Lumigan 0.01% Ophth Soln]) 1 drop TOP DAILY [facility] Non-Formulary Medication (Lactose-Reduced Food [Ensure]) 1 can PO BID [facility] Check Fentanyl 12 (Mcg Patch Daily) 1 each .XX DAILY [facility] Ondansetron HCl (Zofran Odt) 4 mg PO Q6H PRN PRN Reason: Nausea able to take PO Ondansetron HCl (Zofran) 4 mg IV Q4H PRN PRN Reason: Nausea/Vomiting Oxycodone HCl (Oxycodone) 5 mg PO Q4H PRN PRN Reason: Pain (moderate 4-6) Pantoprazole Sodium (Protonix) 40 mg PO DAILY@0730 [facility] Trazodone HCl (Trazodone) 50 mg PO BEDTIME [facility] Last Admin: 08/30/17 22:33 Dose: 50 mg Assessment/Plan Comment:: ASSESSMENT / PLAN 82-year-old female presents emergency department today with family for change in mental status was up moving around she does have a history of dementia but was communicative ambulating yesterday today was found to have a fever up to 100.2 has now become obtunded and is not ambulating minimally responsive therefore the majority of this H&P was taken from family and review of records. Acuity = acute Site and laterality = sepsis secondary to urinary tract infection complicated patient with history of dementia Etiology = probable bacterial cause Manifestations = obtunded Location of injury = Home Lab values = WBC elevated 18.5 consistent leukocytosis, hemoglobin low at 10.9 consistent normochromic anemia CRP elevated at 10.8 albumin low at 2.1 consistent with hypoalbuminemia lactic acid normal at 1.0 urinalysis reveals semi-packed WBCs consistent with pyuria cultures pending blood cultures are pending Plan She did receive initial dose of IV Zoysn 4.5 gm as well as 1 L fluid this was secondary switched to Rocephin after discovery of urinary tract infection, discussed case with hospitalist on-call they agreed to evaluate the patient emergency department for admission she is a DNR/DNI Pallative/comfort measures. Urinary Tract Infection with Sepsis -Admit to [address] [place] [address] for further monitoring -IV fluids bolus; IV NS1 liter, IV LR 1 liter,then IV Fluids for rehydration NS at 100 mL per hour -IV Antibiotic; Rocephin 1 gram IV every 24 hours -IV Zoysn 4.5 gm every 6 hours -blood cultures x2 pending -And a.m. labs: CBC, BMP, lactic acid Dementia -continue present plan of care Palliative care -Family would like treatment with IV fluids and IV or oral antibiotics and pain medications for comfort. They decline any ICU care, no CPR, no Intubation, no ACLS medication. declines transfer to higher level of care such as ICU Maintenance issues -Orders home meds: -Nutrition: regular diet -Downs catheter: inserted for strict I & O, and incontinence -DVT: Lovenox 40 mg subncut -PPI; IV Protonix 40mg daily -consult Case Management for discharge planning CODE STATUS: DNR/DNI, Palliative comfort measures Admission status: Admit to [address] [place] [address] Admission justification. This patient will be admitted for inpatient services and is medically appropriate meeting medical necessity for inpatient admission as outlined in my documentation. I reasonably expect the patient will require inpatient services that span. Time over 2 midnights. I reasonably expect this patient to be discharged or transferred within 96 hours after admission to the [facility]. Disposition; transfer back to [place], [place]. Primary care provider: Morris Grayson NP Hospitalist: Dr. Griggs
[2017-08-31] MEDS: Piperacillin/Tazobactam 4.5 GM in Sodium Chloride 0.9% 100 ML IV SCH ×4 (00:09→23:32)
[2017-08-31] MEDS ORDERED: Sodium Chloride 0.9% 1,000 ML IV SCH (00:43)
[2017-08-31] MEDS ORDERED: Non-Formulary Medication 1 Each (Bimatoprost [Lumigan 0.01% Ophth Soln] 1 DROP) TOP SCH (09:00)
[2017-08-31] MEDS: Pantoprazole 40 MG Tab.CR PO SCH (09:04)
[2017-08-31] MEDS: Enoxaparin 40 MG/0.4 ML Syringe SUBCUT SCH (09:04)
[2017-08-31] MEDS: Ferrous Sulfate 325 MG Tab PO SCH (09:04)
[2017-08-31] MEDS: Folic Acid 1 MG Tab PO SCH (09:04)
[2017-08-31] MEDS: Memantine 10 MG Tab PO SCH ×2 (09:05→20:02)
[2017-08-31] MEDS: NIFEdipine 30 MG Tab.ER PO SCH (09:05)
[2017-08-31] MEDS: Gabapentin 300 MG Cap PO SCH (09:05)
[2017-08-31] MEDS: Acetaminophen 325 MG Tab PO SCH ×3 (09:06→20:01)
[2017-08-31] MEDS: Cyanocobalamin (Vitamin B12) 1,000 MCG Tab PO SCH (09:07)
[2017-08-31] MEDS: VERIFY FENTANYL PATCH SCH ×2 (11:07→20:02)
[2017-08-31] MEDS ORDERED: Piperacillin/Tazobactam/Dext 4.5 GM in Premix Bag 1 BAG IV SCH (12:00)
--- NOTE | 2017-08-31 13:00 | PCM.PN ---
- General Info Date of Service: 08/31/17 Subjective Update: Ms. Flores is an 82-year-old woman who was admitted last night with weakness and lethargy secondary to urinary tract infection with sepsis. She has received IV fluids for hydration and was given IV antibiotic therapy. This morning her daughter feels that she is much closer to her baseline still perhaps mildly lethargic. Patient herself has fairly severe dementia and is unable to provide meaningful history concerning recent symptoms or review of systems. - Patient Data Vitals - Most Recent: Last Vital Signs Temp 97.9 F 08/31/17 11:05 Pulse 93 08/31/17 11:05 Resp 16 08/31/17 11:05 BP 130/65 08/31/17 11:05 Pulse Ox 94 L 08/31/17 11:05 Weight - Most Recent: 134 lb 14.4 oz I&O - Last 24 Hours: Intake & Output 08/30/17 08/31/17 08/31/17 22:59 06:59 14:59 Intake Total 1400 100 Output Total 1000 1650 Balance 400 -1550 Lab Results Last 24 Hours: Laboratory Results - last 24 hr 08/31/17 08/31/17 Range/Units 06:09 06:09 WBC 15.8 H (4.5-11.0) K/uL RBC 3.59 (3.30-5.50) M/uL Hgb 11.0 L (12.0-15.0) g/dL Hct 33.0 L (36.0-48.0) % MCV 92 (80-98) fL MCH 31 (27-31) pg MCHC 33 (32-36) % Plt Count 356 (150-400) K/uL Neut % (Auto) 81 H (36-66) % Lymph % (Auto) 9 L (24-44) % [place] % (Auto) 9 H (2-6) % Eos % (Auto) 1 L (2-4) % Baso % (Auto) 0 (0-1) % Sodium 140 (140-148) mmol/L Potassium 3.6 (3.6-5.2) mmol/L Chloride 105 (100-108) mmol/L Carbon Dioxide 27 (21-32) mmol/L Anion Gap 7.9 (5.0-14.0) mmol/L BUN 10 (7-18) mg/dL Creatinine 0.7 (0.6-1.0) mg/dL Est Cr Clr Drug Dosing 57.68 mL/min Estimated GFR (MDRD) > 60 (>60) Glucose 91 (74-106) mg/dL Calcium 8.9 (8.5-10.1) mg/dL C-Reactive Protein 18.99 H (0.0-0.3) mg/dL Med Orders - Current: Current Medications Acetaminophen (Tylenol) 650 mg PO Q4H PRN PRN Reason: Pain (Mild 1-3)/fever Acetaminophen (Tylenol) 650 mg PO TID [facility] Last Admin: 08/31/17 09:06 Dose: 650 mg Al Hydroxide/Mg Hydroxide (Mag-Al Plus) 15 ml PO Q6H PRN PRN Reason: Indigestion Albuterol (Proventil Neb Soln) 2.5 mg NEB Q4H PRN PRN Reason: Shortness Of Breath/wheezing Cyanocobalamin (Vitamin B12) 1,000 mcg PO DAILY [facility] Last Admin: 08/31/17 09:07 Dose: 1,000 mcg Docusate Sodium (Colace) 100 mg PO BID PRN PRN Reason: Constipation Donepezil HCl (Aricept) 10 mg PO BEDTIME [facility] Last Admin: 08/30/17 22:34 Dose: 10 mg Enoxaparin Sodium (Lovenox) 40 mg SUBCUT DAILY [facility] Last Admin: 08/31/17 09:04 Dose: 40 mg Fentanyl (Duragesic) 12 mcg TOP Q48H [facility] Ferrous Sulfate (Ferrous Sulfate) 325 mg PO DAILY [facility] Last Admin: 08/31/17 09:04 Dose: 325 mg Folic Acid (Folic Acid) 1 mg PO DAILY [facility] Last Admin: 08/31/17 09:04 Dose: 1 mg Gabapentin (Neurontin) 300 mg PO DAILY [facility] Last Admin: 08/31/17 09:05 Dose: 300 mg Ceftriaxone Sodium 1 gm/ (Sodium Chloride) 100 mls @ 200 mls/hr IV Q24H JA Piperacillin/Tazobactam/ (Dextrose 4.5 gm/ Premix) 100 mls @ 200 mls/hr IV Q6H [facility] Last Admin: 08/31/17 11:31 Dose: 200 mls/hr Latanoprost (Xalatan 0.005% Ophth Soln) 0 ml EYEBOTH BEDTIME [facility] Lorazepam (Ativan) 1 mg IV Q6H PRN PRN Reason: Nausea/Vomiting Melatonin (Melatonin) 9 mg PO BEDTIME [facility] Memantine (Namenda) 10 mg PO BID [facility] Last Admin: 08/31/17 09:05 Dose: 10 mg Mirtazapine (Remeron) 15 mg PO BEDTIME [facility] Last Admin: 08/30/17 22:33 Dose: 15 mg Morphine Sulfate (Morphine) 2 mg IVPUSH Q2H PRN PRN Reason: Pain (severe 7-10) Nifedipine (Procardia Xl) 60 mg PO DAILY [facility] Last Admin: 08/31/17 09:05 Dose: 60 mg Verify Fentanyl (Patch) 0 each .XX BID [facility] Last Admin: 08/31/17 11:07 Dose: Not Given Ondansetron HCl (Zofran Odt) 4 mg PO Q6H PRN PRN Reason: Nausea able to take PO Ondansetron HCl (Zofran) 4 mg IV Q4H PRN PRN Reason: Nausea/Vomiting Oxycodone HCl (Oxycodone) 5 mg PO Q4H PRN PRN Reason: Pain (moderate 4-6) Pantoprazole Sodium (Protonix) 40 mg PO DAILY@0730 [facility] Last Admin: 08/31/17 09:04 Dose: 40 mg Trazodone HCl (Trazodone) 50 mg PO BEDTIME [facility] Last Admin: 08/30/17 22:33 Dose: 50 mg Discontinued Medications Lactated Ringer's (Ringers, Lactated) 1,000 mls @ 500 mls/hr IV ASDIRECTED [facility] Last Admin: 08/30/17 18:03 Dose: 500 mls/hr Piperacillin Sod/Tazobactam (Sod 4.5 gm/ Sodium Chloride) 100 mls @ 200 mls/hr IV Q6H [facility] Last Admin: 08/30/17 18:03 Dose: 200 mls/hr Sodium Chloride (Normal Saline) Confirm Administered Dose 100 mls @ as directed .ROUTE .STK-MED ONE Stop: 08/30/17 17:59 Last Admin: 08/30/17 18:07 Dose: Not Given Ceftriaxone Sodium 1 gm/ (Sodium Chloride) 50 mls @ 100 mls/hr IV ONETIME ONE Stop: 08/30/17 19:05 Last Admin: 08/30/17 18:55 Dose: 100 mls/hr Piperacillin Sod/Tazobactam (Sod 4.5 gm/ Sodium Chloride) 100 mls @ 200 mls/hr IV Q6H [facility] Last Admin: 08/31/17 06:05 Dose: 200 mls/hr Sodium Chloride (Normal Saline) 1,000 mls @ 250 mls/hr IV ASDIRECTED [facility] Stop: 08/31/17 00:43 Last Admin: 08/30/17 22:33 Dose: 250 mls/hr Sodium Chloride (Normal Saline) 1,000 mls @ 100 mls/hr IV ASDIRECTED [facility] Last Admin: 08/31/17 03:09 Dose: 100 mls/hr Latanoprost (Xalatan 0.005% Oph Soln) 0 ml EYEBOTH BEDTIME [facility] Last Admin: 08/30/17 22:34 Dose: 1 drop Non-Formulary Medication (Melatonin [Melatonin]) 10 mg PO DAILY [facility] Last Admin: 08/31/17 01:38 Dose: Not Given - Exam Quality Assessment: Urine Catheter General: Alert, Cooperative, No Acute Distress Lungs: Clear to Auscultation, Normal Respiratory Effort Cardiovascular: Regular Rate, Regular Rhythm, No Murmurs GI/Abdominal Exam: Soft, Non-Tender, No Organomegaly, No Distention Extremities: Non-Tender, No Pedal Edema Skin: Warm, Dry - Problem List Review Problem List Initiated/Reviewed/Updated: Yes - My Orders Last 24 Hours: My Active Orders 08/31/17 12:48 Potassium Chloride [Klor-Con M20] 40 meq PO ONETIME ONE 08/31/17 12:49 Convert IV to Saline Lock [OM.PC] Routine 09/01/17 05:00 BASIC METABOLIC PANEL,BMP [CHEM] Timed CBC WITH AUTO DIFF [HEME] Timed - Plan Plan:: ASSESSMENT / PLAN Urinary Tract Infection with Sepsis-improved since admission, blood and urine cultures pending -Saline lock IV -IV Antibiotic; Rocephin 1 gram IV every 24 hours -blood cultures x2 pending Dementia -continue present plan of care Palliative care -Family would like treatment with IV fluids and IV or oral antibiotics and pain medications for comfort. They decline any ICU care, no CPR, no Intubation, no ACLS medication. declines transfer to higher level of care such as ICU Maintenance issues -Orders home meds: -Nutrition: regular diet -Downs catheter: inserted for strict I & O, and incontinence -DVT: Lovenox 40 mg subncut -PPI; IV Protonix 40mg daily -consult Case Management for discharge planning CODE STATUS: DNR/DNI, Palliative comfort measures Admission status: Admit to [address] [place] [address] Admission justification. This patient will be admitted for inpatient services and is medically appropriate meeting medical necessity for inpatient admission as outlined in my documentation. I reasonably expect the patient will require inpatient services that span. Time over 2 midnights. I reasonably expect this patient to be discharged or transferred within 96 hours after admission to the [facility]. Disposition; transfer back to [place], [place]. Primary care provider: Morris Grayson NP Hospitalist: Dr. Griggs
[2017-08-31] MEDS ORDERED: Potassium Chloride 20 MEQ Tab.ER PO ONE (13:30)
[2017-08-31] MEDS ORDERED: cefTRIAXone 1 GM in Sodium Chloride 0.9% 50 ML IV SCH (17:30)
[2017-08-31] MEDS ORDERED: cefTRIAXone 1 GM in Sodium Chloride 0.9% 100 ML IV SCH (17:30)
[2017-08-31] MEDS: Donepezil 10 MG Tab PO SCH (20:01)
[2017-08-31] MEDS: Mirtazapine 15 MG Tab PO SCH (20:03)
[2017-08-31] MEDS: traZODone 50 MG Tab PO SCH (20:03)
[2017-08-31] MEDS ORDERED: Melatonin 3 MG Tab PO SCH (21:00)
[2017-08-31] MEDS ORDERED: Latanoprost 0.005% Ophth Soln 2.5 ML Bottle EYEBOTH SCH (21:00)
[2017-09-01] MEDS: Piperacillin/Tazobactam 4.5 GM in Sodium Chloride 0.9% 100 ML IV SCH (05:17)
[2017-09-01] MEDS: Pantoprazole 40 MG Tab.CR PO SCH (07:46)
[2017-09-01] MEDS: Enoxaparin 40 MG/0.4 ML Syringe SUBCUT SCH (08:52)
[2017-09-01] MEDS: Ferrous Sulfate 325 MG Tab PO SCH (08:52)
[2017-09-01] MEDS: Folic Acid 1 MG Tab PO SCH (08:52)
[2017-09-01] MEDS: Gabapentin 300 MG Cap PO SCH (08:53)
[2017-09-01] MEDS: VERIFY FENTANYL PATCH SCH (08:53)
[2017-09-01] MEDS: Memantine 10 MG Tab PO SCH (08:53)
[2017-09-01] MEDS: NIFEdipine 30 MG Tab.ER PO SCH (08:53)
[2017-09-01] MEDS: Cyanocobalamin (Vitamin B12) 1,000 MCG Tab PO SCH (08:54)
[2017-09-01] MEDS: Acetaminophen 325 MG Tab PO SCH (08:54)
[2017-09-01] MEDS ORDERED: fentaNYL 12 MCG/HR Transdermal Patch TOP SCH (09:00)
--- NOTE | 2017-09-01 09:55 | CR ---
Chest 1V Frontal INDICATION: fever COMPARISON: 05/24/2017 FINDINGS: Single AP portable chest. Heart size normal. Infiltrate right lung base. This may represent pneumonia. No pleural effusions. Surgical clips right upper quadrant. Thoracolumbar scoliosis.
--- NOTE | 2017-09-01 10:35 | PCM.DCSUM1 ---
Discharge Summary - Hospital Course Brief History: 82 -year-old female with history of dementia who presented with fever and weakness as well as confusion. Workup in the emergency room suggested acute cystitis and she was admitted for further management. - Discharge Data Discharge Date: 09/01/17 Discharge Disposition: Home, Self-Care 01 Condition: Good - Discharge Diagnosis/Problem(s) (1) Acute cystitis with positive culture SNOMED Code(s): 418260081 ICD Code: N30.00 - ACUTE CYSTITIS WITHOUT HEMATURIA Status: Acute Current Visit: Yes (2) Dementia with behavioral disturbance SNOMED Code(s): 7874239918921 ICD Code: F03.91 - UNSPECIFIED DEMENTIA WITH BEHAVIORAL DISTURBANCE Status : Chronic Priority: High Current Visit: Yes Qualifiers: Dementia type: Alzheimer's disease Alzheimer's disease onset: late-onset Qualified Code(s): G30.1 - Alzheimer's disease with late onset; F02.81 - Dementia in other diseases classified elsewhere with behavioral disturbance (3) Palliative care status SNOMED Code(s): 861247885 ICD Code: Z51.5 - ENCOUNTER FOR PALLIATIVE CARE Status: Acute Priority: Medium Current Visit: Yes - Patient Summary/Data Consults: Consultations 08/30/17 20:44 Consult to Case Management [CONS] Routine Comment: Physician Instructions: Quantity: Reason for Consult: discharge planning return to [facility] Hospital Course: Anitha presented to the emergency room with weakness, confusion and fever. Workup in the emergency room suggested acute cystitis and she was admitted to the hospital for further management. She was empirically started on ceftriaxone and did receive some IV fluids in the emergency room as well as a continuous infusion after admission. Over the next 24 hours she did show a fair amount of clinical improvement with improving mental status and less weakness and somnolence. Her vital signs remained stable and she did not have additional fevers. Urine culture on the day after admission was growing gram-negative rods but identification was still pending. Over the next 24 hours she had additional clinical improvement with return of mental status to baseline. She has not had any behavior issues. Vital signs have all been stable. Her urine culture did grow out a pansensitive Escherichia coli. She will be discharged with 6 additional doses of cephalexin. She can follow-up as needed if she does not continue to get better. - Patient Instructions Diet: Regular Diet as Tolerated Activity: As Tolerated Showering/Bathing: May Shower Notify Provider of: Fever, Increased Pain, Nausea and/or Vomiting Other/Special Instructions: 1. You were in the hospital for management of acute cystitis caused by an Escherichia coli infection. I recommend 6 additional doses of cephalexin with 500 mg taken twice daily. Your next dose is due tonight. 2. Please continue your other home medications as previously prescribed. 3. Seek medical attention if you develop fever greater than 101, have sudden onset of shortness of breath/chest tightness or if you develop persistent vomiting or diarrhea. - Discharge Plan Prescriptions/Med Rec: Cephalexin 500 mg PO BID #6 capsule Home Medications: Home Meds Acetaminophen 650 mg PO TID 03/23/17 [History] Alum Hydrox/Mag Hydrox/Simeth [Maalox Advanced] 15 ml PO Q6H PRN 03/23/17 [ History] Bimatoprost [LUMIGAN 0.01% Ophth Soln] 1 drop EYEBOTH BEDTIME 03/23/17 [History] Cyanocobalamin (Vitamin B-12) [Vitamin B-12] 1,000 mcg SL DAILY 03/23/17 [ History] Donepezil HCl 10 mg PO BEDTIME 03/23/17 [History] Ferrous Sulfate 325 mg PO DAILY 03/23/17 [History] Folic Acid 1 mg PO DAILY 03/23/17 [History] Lactose-Reduced Food [Ensure] 1 can PO BID 03/23/17 [History] Magnesium Hydroxide [Milk of Magnesia] 15 ml PO DAILY PRN 03/23/17 [History] Memantine [Namenda] 10 mg PO BID 03/23/17 [History] Mirtazapine 15 mg PO BEDTIME 03/23/17 [History] NIFEdipine [Adalat cc] 60 mg PO DAILY 03/23/17 [History] Polyethylene Glycol 3350 [MiraLAX] 17 gm PO DAILY PRN 03/23/17 [History] Triamcinolone Acetonide [Triamcinolone Acetonide 0.1% Crm] 1 gm TOP BID PRN [History] traZODone HCl [Trazodone HCl] 50 mg PO BEDTIME 03/23/17 [History] Melatonin 10 mg PO DAILY #30 capsule 05/25/17 [Rx] Pantoprazole [ProTONIX] 40 mg PO DAILY #30 tab.cr 05/25/17 [Rx] Gabapentin [Neurontin] 300 mg PO DAILY 08/30/17 [History] fentaNYL [Duragesic] 1 patch TOP ASDIRECTED 08/30/17 [History] Cephalexin 500 mg PO BID #6 capsule 09/01/17 [Rx] Referrals: Morris Grayson, [employer] [Primary Care Provider] - (f/u as needed after the hospital stay ) - Discharge Summary/Plan Comment DC Time >30 min.: No (25) - Patient Data Vitals - Most Recent: Last Vital Signs Temp 36.1 C 09/01/17 08:02 Pulse 81 09/01/17 08:02 Resp 12 09/01/17 08:02 BP 138/72 09/01/17 08:53 Pulse Ox 96 09/01/17 08:02 Weight - Most Recent: 61.19 kg I&O - Last 24 hours: Intake & Output 08/31/17 09/01/17 09/01/17 22:59 06:59 14:59 Intake Total 250 200 600 Output Total 800 700 Balance 250 -600 -100 Lab Results - Last 24 hrs: Laboratory Results - last 24 hr 09/01/17 09/01/17 Range/Units 05:55 05:55 WBC 10.8 (4.5-11.0) K/uL RBC 3.61 (3.30-5.50) M/uL Hgb 10.7 L (12.0-15.0) g/dL Hct 33.0 L (36.0-48.0) % MCV 91 (80-98) fL MCH 30 (27-31) pg MCHC 32 (32-36) % Plt Count 397 (150-400) K/uL Neut % (Auto) 74 H (36-66) % Lymph % (Auto) 15 L (24-44) % [place] % (Auto) 10 H (2-6) % Eos % (Auto) 2 (2-4) % Baso % (Auto) 0 (0-1) % Sodium 142 (140-148) mmol/L Potassium 3.4 L (3.6-5.2) mmol/L Chloride 106 (100-108) mmol/L Carbon Dioxide 28 (21-32) mmol/L Anion Gap 11.4 (5.0-14.0) mmol/L BUN 9 (7-18) mg/dL Creatinine 0.8 (0.6-1.0) mg/dL Est Cr Clr Drug Dosing 50.47 mL/min Estimated GFR (MDRD) > 60 (>60) Glucose 95 (74-106) mg/dL Calcium 9.2 (8.5-10.1) mg/dL Med Orders - Current: Current Medications Acetaminophen (Tylenol) 650 mg PO Q4H PRN PRN Reason: Pain (Mild 1-3)/fever Acetaminophen (Tylenol) 650 mg PO TID [facility] Last Admin: 09/01/17 08:54 Dose: 650 mg Al Hydroxide/Mg Hydroxide (Mag-Al Plus) 15 ml PO Q6H PRN PRN Reason: Indigestion Albuterol (Proventil Neb Soln) 2.5 mg NEB Q4H PRN PRN Reason: Shortness Of Breath/wheezing Cyanocobalamin (Vitamin B12) 1,000 mcg PO DAILY [facility] Last Admin: 09/01/17 08:54 Dose: 1,000 mcg Docusate Sodium (Colace) 100 mg PO BID PRN PRN Reason: Constipation Donepezil HCl (Aricept) 10 mg PO BEDTIME [facility] Last Admin: 08/31/17 20:01 Dose: 10 mg Enoxaparin Sodium (Lovenox) 40 mg SUBCUT DAILY [facility] Last Admin: 09/01/17 08:52 Dose: 40 mg Fentanyl (Duragesic) 12 mcg TOP Q48H [facility] Last Admin: 09/01/17 08:51 Dose: 12 mcg Ferrous Sulfate (Ferrous Sulfate) 325 mg PO DAILY [facility] Last Admin: 09/01/17 08:52 Dose: 325 mg Folic Acid (Folic Acid) 1 mg PO DAILY [facility] Last Admin: 09/01/17 08:52 Dose: 1 mg Gabapentin (Neurontin) 300 mg PO DAILY [facility] Last Admin: 09/01/17 08:53 Dose: 300 mg Ceftriaxone Sodium 1 gm/ (Sodium Chloride) 100 mls @ 200 mls/hr IV Q24H [facility] Last Admin: 08/31/17 16:33 Dose: 200 mls/hr Piperacillin Sod/Tazobactam (Sod 4.5 gm/ Sodium Chloride) 100 mls @ 200 mls/hr IV Q6H [facility] Last Admin: 09/01/17 05:17 Dose: 200 mls/hr Latanoprost (Xalatan 0.005% Ophth Soln) 0 ml EYEBOTH BEDTIME [facility] Last Admin: 08/31/17 20:03 Dose: 1 drop Lorazepam (Ativan) 1 mg IV Q6H PRN PRN Reason: Nausea/Vomiting Melatonin (Melatonin) 9 mg PO BEDTIME [facility] Last Admin: 08/31/17 20:00 Dose: 9 mg Memantine (Namenda) 10 mg PO BID [facility] Last Admin: 09/01/17 08:53 Dose: 10 mg Mirtazapine (Remeron) 15 mg PO BEDTIME [facility] Last Admin: 08/31/17 20:03 Dose: 15 mg Morphine Sulfate (Morphine) 2 mg IVPUSH Q2H PRN PRN Reason: Pain (severe 7-10) Nifedipine (Procardia Xl) 60 mg PO DAILY [facility] Last Admin: 09/01/17 08:53 Dose: 60 mg Verify Fentanyl (Patch) 0 each .XX BID [facility] Last Admin: 09/01/17 08:53 Dose: Not Given Ondansetron HCl (Zofran Odt) 4 mg PO Q6H PRN PRN Reason: Nausea able to take PO Ondansetron HCl (Zofran) 4 mg IV Q4H PRN PRN Reason: Nausea/Vomiting Oxycodone HCl (Oxycodone) 5 mg PO Q4H PRN PRN Reason: Pain (moderate 4-6) Last Admin: 08/31/17 13:43 Dose: 5 mg Pantoprazole Sodium (Protonix) 40 mg PO DAILY@0730 [facility] Last Admin: 09/01/17 07:46 Dose: 40 mg Trazodone HCl (Trazodone) 50 mg PO BEDTIME [facility] Last Admin: 08/31/17 20:03 Dose: 50 mg Discontinued Medications Lactated Ringer's (Ringers, Lactated) 1,000 mls @ 500 mls/hr IV ASDIRECTED [facility] Last Admin: 08/30/17 18:03 Dose: 500 mls/hr Piperacillin Sod/Tazobactam (Sod 4.5 gm/ Sodium Chloride) 100 mls @ 200 mls/hr IV Q6H [facility] Last Admin: 08/30/17 18:03 Dose: 200 mls/hr Sodium Chloride (Normal Saline) Confirm Administered Dose 100 mls @ as directed .ROUTE .STK-MED ONE Stop: 08/30/17 17:59 Last Admin: 08/30/17 18:07 Dose: Not Given Ceftriaxone Sodium 1 gm/ (Sodium Chloride) 50 mls @ 100 mls/hr IV ONETIME ONE Stop: 08/30/17 19:05 Last Admin: 08/30/17 18:55 Dose: 100 mls/hr Piperacillin Sod/Tazobactam (Sod 4.5 gm/ Sodium Chloride) 100 mls @ 200 mls/hr IV Q6H [facility] Last Admin: 08/31/17 06:05 Dose: 200 mls/hr Sodium Chloride (Normal Saline) 1,000 mls @ 250 mls/hr IV ASDIRECTED [facility] Stop: 08/31/17 00:43 Last Admin: 08/30/17 22:33 Dose: 250 mls/hr Sodium Chloride (Normal Saline) 1,000 mls @ 100 mls/hr IV ASDIRECTED [facility] Last Admin: 08/31/17 03:09 Dose: 100 mls/hr Piperacillin/Tazobactam/ (Dextrose 4.5 gm/ Premix) 100 mls @ 200 mls/hr IV Q6H [facility] Last Admin: 08/31/17 11:31 Dose: 200 mls/hr Latanoprost (Xalatan 0.005% Oph Soln) 0 ml EYEBOTH BEDTIME [facility] Last Admin: 08/30/17 22:34 Dose: 1 drop Non-Formulary Medication (Melatonin [Melatonin]) 10 mg PO DAILY [facility] Last Admin: 08/31/17 01:38 Dose: Not Given Potassium Chloride (Klor-Con M20) 40 meq PO ONETIME ONE Stop: 08/31/17 13:31 Last Admin: 08/31/17 13:42 Dose: 40 meq - Exam Quality Assessment: Denies: Supplemental Oxygen General: Reports: Alert, Cooperative, No Acute Distress. Denies: Oriented Neck: Reports: Supple Lungs: Reports: Normal Respiratory Effort GI/Abdominal Exam: No Distention Extremities: No Pedal Edema Psy/Mental Status: Reports: Alert *Q Meaningful Use (DIS) - VTE *Q VTE Criteria *Q: - Stroke *Q Stroke Criteria *Q: - AMI *Q AMI Criteria *Q:
[2017-09-01 12:29] VITALS: BP 111/53
== END 2017-09-01 12:50 | disposition home or self-care (01) | DRG 872 ==
LOC: JP.ED 16:46 → JP.MS 20:17
PROVIDERS: ADMIT Hospitalist; ATTEND Internal Medicine
DX: A41.9 Sepsis, unspecified organism (principal); N30.00 Acute cystitis without hematuria; F02.81 Dementia in other diseases classified elsewhere, unspecified severity, with behavioral disturbance; B96.20 Unspecified Escherichia coli [E. coli] as the cause of diseases classified elsewhere; I10 Essential (primary) hypertension; G30.1 Alzheimer's disease with late onset; Z87.891 Personal history of nicotine dependence; Z51.5 Encounter for palliative care; Z66 Do not resuscitate; R50.9 Fever, unspecified; R53.1 Weakness; R41.82 Altered mental status, unspecified; M54.9 Dorsalgia, unspecified; G89.29 Other chronic pain; Z86.73 Personal history of transient ischemic attack (TIA), and cerebral infarction without residual deficits; M19.90 Unspecified osteoarthritis, unspecified site; K21.9 Gastro-esophageal reflux disease without esophagitis; F32.9 Major depressive disorder, single episode, unspecified; H91.90 Unspecified hearing loss, unspecified ear; Z87.440 Personal history of urinary (tract) infections
CPT/HCPCS: 36415; 51702; 80053; 81001; 83605; 85025; 86140; 87040 ×2; 87086; 87088; 87186; 87804 ×2; 96361; 96365; 96367; 99285; J0696; J2543; J7030; J7050; J7120; 71010; 71010-26; 80048; 94762; A9270-GY; J1650; J7040

== ENCOUNTER 2018-02-03 11:20 | Inpatient (IN) | payer MEDICARE, BC ==
[2018-02-03] MEDS ORDERED: Sodium Chloride 0.9% 1,000 ML IV SCH ×2 (11:30→13:45)
[2018-02-03] MEDS ORDERED: Levofloxacin/Dextrose 5%-Water 500 MG in Premix Bag 1 BAG IV ONE (12:07)
--- NOTE | 2018-02-03 12:45 | CR ---
Chest 1V Frontal INDICATION: fever COMPARISON: None FINDINGS: AP portable chest. Small infiltrate right lung base likely pneumonia. No pleural effusions. Heart size normal.
[2018-02-03] MEDS ORDERED: Acetaminophen 650 MG Supp RECTAL ONE (13:20)
--- NOTE | 2018-02-03 13:29 | EDM.PDOC ---
ED HPI GENERAL MEDICAL PROBLEM - General Chief Complaint: General Stated Complaint: FEVER Time Seen by Provider: 02/03/18 11:30 Source of Information: Reports: EMS, Family, [facility] Records History Limitations: Reports: No Limitations - History of Present Illness INITIAL COMMENTS - FREE TEXT/NARRATIVE: pt arrived with a elevated temp and pt is much weaker. She did spike a temp to 103 Onset: Today Duration: Hour(s): Location: Reports: Generalized Severity: Moderate Associated Symptoms: Reports: Fever/Chills, Weakness - Related Data Allergies Allergy/AdvReac Type Severity Reaction Status Date / Time No Known Allergies Allergy Verified 02/03/18 11:48 Home Meds: Home Meds Acetaminophen 650 mg PO TID 03/23/17 [History] Alum Hydrox/Mag Hydrox/Simeth [Maalox Advanced] 15 ml PO Q6H PRN 03/23/17 [ History] Bimatoprost [LUMIGAN 0.01% Ophth Soln] 1 drop EYEBOTH BEDTIME 03/23/17 [History] Cyanocobalamin (Vitamin B-12) [Vitamin B-12] 1,000 mcg SL DAILY 03/23/17 [ History] Donepezil HCl 10 mg PO BEDTIME 03/23/17 [History] Ferrous Sulfate 325 mg PO DAILY 03/23/17 [History] Folic Acid 1 mg PO DAILY 03/23/17 [History] Lactose-Reduced Food [Ensure] 1 can PO BID 03/23/17 [History] Magnesium Hydroxide [Milk of Magnesia] 15 ml PO DAILY PRN 03/23/17 [History] Memantine [Namenda] 10 mg PO BID 03/23/17 [History] Mirtazapine 15 mg PO BEDTIME 03/23/17 [History] NIFEdipine [Adalat cc] 60 mg PO DAILY 03/23/17 [History] Polyethylene Glycol 3350 [MiraLAX] 17 gm PO DAILY PRN 03/23/17 [History] Triamcinolone Acetonide [Triamcinolone Acetonide 0.1% Crm] 1 gm TOP BID PRN [History] traZODone HCl [Trazodone HCl] 50 mg PO BEDTIME 03/23/17 [History] Pantoprazole [ProTONIX] 40 mg PO DAILY #30 tab.cr 05/25/17 [Rx] Gabapentin [Neurontin] 300 mg PO DAILY 08/30/17 [History] fentaNYL [Duragesic] 1 patch TOP ASDIRECTED 08/30/17 [History] Cephalexin 500 mg PO BID #6 capsule 09/01/17 [Rx] Melatonin 10 mg PO BEDTIME 02/03/18 [History] Levofloxacin 750 mg PO DAILY #2 tablet 02/05/18 [Rx] Past Medical History HEENT History: Reports: Hard of Hearing Other HEENT History: does not have hearing aid with. Cardiovascular History: Reports: Hypertension Gastrointestinal History: Reports: GERD, Hiatal Hernia Genitourinary History: Reports: UTI, Recurrent Musculoskeletal History: Reports: Back Pain, Chronic, Osteoarthritis 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, CVA, TIA Psychiatric History: Reports: Dementia, Depression Other Psychiatric History: paranoid and hallucinationations Hematologic History: Reports: Anemia, B12 Deficiency, Iron Deficiency - Infectious Disease History Infectious Disease History: Reports: Chicken Pox, Measles, Mumps - Past Surgical History GI Surgical History: Reports: Cholecystectomy Female Surgical History: Reports: Hysterectomy Other Female Surgeries/Procedures: bladder suspension Social & Family History - Family History Family Medical History: Noncontributory - Caffeine Use Caffeine Use: Reports: Coffee - Recreational Drug Use Recreational Drug Use: No - Living Situation & Occupation Living situation: Reports: Extended Care Facility (prior to onset of Dementia, 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 Has 3 children; 2 daughters 1 son. Daughter Yoly has P.O.A.) Occupation: Disabled ED ROS GENERAL - Review of Systems Review Of Systems: See Below Constitutional: Reports: Fever, Chills, Malaise, Diaphoresis HEENT: Reports: No Symptoms Respiratory: Reports: No Symptoms Cardiovascular: Reports: No Symptoms Endocrine: Reports: No Symptoms GI/Abdominal: Reports: No Symptoms : Reports: Other ( history of repeated infection) Musculoskeletal: Reports: No Symptoms Skin: Reports: No Symptoms Neurological: Reports: Other (pt is normally not able to communicate . He does ambulate) ED EXAM, GENERAL - Physical Exam Exam: See Below Free Text/Narrative:: pt arrived with a temp and she is definitely weaker than usual. She is not verbal at this point but she does ambulate. Exam Limited By: No Limitations General Appearance: Alert, No Apparent Distress, Other (pupils are equal and reactive. ) Ears: Normal TMs Nose: Normal Inspection Throat/Mouth: Normal Inspection Head: Atraumatic Neck: Normal Inspection Respiratory/Chest: No Respiratory Distress, Other ( Pt does have a few rales at the rt lung base. ) Cardiovascular: Regular Rate, Rhythm, Tachycardia GI/Abdominal: Soft, Non-Tender (Female) Exam: Deferred Rectal (Female) Exam: Deferred Back Exam: Normal Inspection Extremities: Normal Inspection Neurological: Alert, Oriented, Other (pt is not verbal o her cognition is difficult to evaluate. Her daughter does state that the pt does not know her. ) Course - Vital Signs Last Recorded V/S: Last Vital Signs Temp 36.2 C 02/05/18 08:31 Pulse 65 02/05/18 08:31 Resp 16 02/05/18 08:31 BP 145/76 H 02/05/18 08:31 Pulse Ox 92 L 02/05/18 08:31 - Orders/Labs/Meds Labs: Laboratory Tests 02/03/18 02/03/18 02/03/18 Range/Units 11:23 11:23 11:50 WBC 15.9 H (4.5-11.0) K/uL RBC 4.26 (3.30-5.50) M/uL Hgb 12.7 D (12.0-15.0) g/dL Hct 39.0 (36.0-48.0) % MCV 92 (80-98) fL MCH 30 (27-31) pg MCHC 33 (32-36) % Plt Count 399 (150-400) K/uL Neut % (Auto) 92 H (36-66) % Lymph % (Auto) 3 L (24-44) % [place] % (Auto) 5 (2-6) % Eos % (Auto) 0 L (2-4) % Baso % (Auto) 0 (0-1) % Sodium 141 (140-148) mmol/L Potassium 3.9 (3.6-5.2) mmol/L Chloride 103 (100-108) mmol/L Carbon Dioxide 32 (21-32) mmol/L Anion Gap 5.8 (5.0-14.0) mmol/L BUN 9 (7-18) mg/dL Creatinine 0.9 (0.6-1.0) mg/dL Est Cr Clr Drug Dosing TNP Estimated GFR (MDRD) > 60 (>60) Glucose 105 (74-106) mg/dL Lactic Acid (0.4-2.0) mmol/L Calcium 8.9 (8.5-10.1) mg/dL Total Bilirubin 0.4 (0.2-1.0) mg/dL AST 17 (15-37) U/L ALT 15 (12-78) U/L Alkaline Phosphatase 70 (46-116) U/L Total Protein 7.0 (6.4-8.2) g/dL Albumin 3.4 (3.4-5.0) g/dL Globulin 3.6 H (2.3-3.5) g/dL Albumin/Globulin Ratio 0.9 L (1.2-2.2) Urine Color Yellow Urine Appearance Slightly cloudy Urine pH 8.0 (4.5-8.0) Ur Specific [place] 1.015 (1.008-1.030) Urine Protein Negative (NEGATIVE) mg/dL Urine Glucose (UA) Normal (NEGATIVE) mg/dL Urine Ketones Negative (NEGATIVE) mg/dL Urine Occult Blood Negative (NEGATIVE) Urine Nitrite Positive H (NEGATIVE) Urine Bilirubin Negative (NEGATIVE) Urine Urobilinogen Normal (NORMAL) mg/dL Ur Leukocyte Esterase Negative (NEGATIVE) Urine RBC 0-5 (0-5) Urine WBC 5-10 H (0-5) Ur Epithelial Cells Rare Amorphous Sediment Not seen Urine Bacteria Many Urine Mucus Not seen 02/03/18 Range/Units 12:50 WBC (4.5-11.0) K/uL RBC (3.30-5.50) M/uL Hgb (12.0-15.0) g/dL Hct (36.0-48.0) % MCV (80-98) fL MCH (27-31) pg MCHC (32-36) % Plt Count (150-400) K/uL Neut % (Auto) (36-66) % Lymph % (Auto) (24-44) % [place] % (Auto) (2-6) % Eos % (Auto) (2-4) % Baso % (Auto) (0-1) % Sodium (140-148) mmol/L Potassium (3.6-5.2) mmol/L Chloride (100-108) mmol/L Carbon Dioxide (21-32) mmol/L Anion Gap (5.0-14.0) mmol/L BUN (7-18) mg/dL Creatinine (0.6-1.0) mg/dL Est Cr Clr Drug Dosing Estimated GFR (MDRD) (>60) Glucose (74-106) mg/dL Lactic Acid 1.3 (0.4-2.0) mmol/L Calcium (8.5-10.1) mg/dL Total Bilirubin (0.2-1.0) mg/dL AST (15-37) U/L ALT (12-78) U/L Alkaline Phosphatase (46-116) U/L Total Protein (6.4-8.2) g/dL Albumin (3.4-5.0) g/dL Globulin (2.3-3.5) g/dL Albumin/Globulin Ratio (1.2-2.2) Urine Color Urine Appearance Urine pH (4.5-8.0) Ur Specific [place] (1.008-1.030) Urine Protein (NEGATIVE) mg/dL Urine Glucose (UA) (NEGATIVE) mg/dL Urine Ketones (NEGATIVE) mg/dL Urine Occult Blood (NEGATIVE) Urine Nitrite (NEGATIVE) Urine Bilirubin (NEGATIVE) Urine Urobilinogen (NORMAL) mg/dL Ur Leukocyte Esterase (NEGATIVE) Urine RBC (0-5) Urine WBC (0-5) Ur Epithelial Cells Amorphous Sediment Urine Bacteria Urine Mucus Meds: Medications Discontinued Medications Generic Name Dose Route Start Last Admin Trade Name Freq PRN Reason Stop Dose Admin Acetaminophen 650 mg 02/03/18 13:20 02/03/18 13:32 Tylenol RECTAL 02/03/18 13:21 650 mg NOW ONE Administration Acetaminophen 650 mg 02/03/18 21:00 02/05/18 08:06 Tylenol PO 650 mg TID JA Administration Albuterol 2.5 mg 02/03/18 15:46 Proventil Neb Soln NEB Q4H PRN Shortness Of Breath/wheezing Cyanocobalamin 1,000 mcg 02/04/18 09:00 02/05/18 08:06 Vitamin B12 PO 1,000 mcg DAILY JA Administration Donepezil HCl 10 mg 02/03/18 21:00 02/04/18 21:14 Aricept PO 10 mg BEDTIME JA Administration Fentanyl 12 mcg 02/04/18 09:00 02/04/18 11:17 Duragesic TOP 12 mcg Q48H JA Administration Folic Acid 1 mg 02/04/18 09:00 02/05/18 08:00 Folic Acid PO 1 mg DAILY JA Administration Gabapentin 300 mg 02/04/18 09:00 02/05/18 08:01 Neurontin PO 300 mg DAILY JA Administration Guaifenesin/Dextromethorphan 10 ml 02/03/18 15:46 Robitussin Dm PO Q4H PRN Cough Sodium Chloride 1,000 mls @ 500 mls/hr 02/03/18 11:30 02/03/18 12:13 Normal Saline IV 500 mls/hr ASDIRECTED JA Administration Levofloxacin/Dextrose 500 mg/ 100 mls @ 100 mls/hr 02/03/18 12:07 02/03/18 12 :29 Premix IV 02/03/18 13:06 100 mls/hr ONETIME ONE Administration Sodium Chloride 1,000 mls @ 500 mls/hr 02/03/18 13:45 02/03/18 14:41 Normal Saline IV 500 mls/hr ASDIRECTED JA Administration Sodium Chloride 1,000 mls @ 100 mls/hr 02/03/18 15:46 02/04/18 06:18 Normal Saline IV 100 mls/hr ASDIRECTED JA Administration Latanoprost 0 ml 02/03/18 21:00 02/04/18 21:12 Xalatan 0.005% Ophth Soln EYEBOTH 1 drop BEDTIME JA Administration Levofloxacin 500 mg 02/04/18 09:00 02/05/18 08:01 Levaquin PO 500 mg Q24H JA Administration Levofloxacin 250 mg 02/04/18 09:00 02/05/18 08:01 Levaquin PO 250 mg Q24H JA Administration Melatonin 9 mg 02/03/18 21:00 02/04/18 21:10 Melatonin PO 9 mg BEDTIME JA Administration Memantine 10 mg 02/03/18 21:00 02/05/18 08:01 Namenda PO 10 mg BID JA Administration Mirtazapine 15 mg 02/03/18 21:00 02/04/18 21:13 Remeron PO 15 mg BEDTIME JA Administration Nifedipine 60 mg 02/04/18 09:00 02/05/18 08:02 Procardia Xl PO 60 mg DAILY JA Administration Verify Fentanyl 0 each 02/03/18 16:00 02/05/18 08:02 Patch TOP Not Given BID JA Ondansetron HCl 4 mg 02/03/18 15:46 Zofran Odt PO Q6H PRN Nausea able to take PO Pantoprazole Sodium 40 mg 02/04/18 07:30 02/05/18 07:59 Protonix PO 40 mg DAILY@0730 JA Administration Polyethylene Glycol 17 gm 02/03/18 15:46 Miralax PO DAILY PRN Constipation Potassium Chloride 40 meq 02/05/18 09:00 02/05/18 10:17 Klor-Con M20 PO 02/05/18 09:01 40 meq ONETIME ONE Administration Senna/Docusate Sodium 1 tab 02/03/18 15:46 Senna Plus PO BID PRN Constipation Trazodone HCl 50 mg 02/03/18 21:00 02/04/18 21:13 Trazodone PO 50 mg BEDTIME JA Administration - Re-Assessments/Exams Free Text/Narrative Re-Assessment/Exam: 02/03/18 13:38 pt was found to have a UTI and a culture was obtained. Her chest xray does reveal a rt lower lobe infiltrate. Her wbc is 15,900 Departure - Departure Time of Disposition: 13:39 Disposition: Admitted As Inpatient 68 Condition: Fair Clinical Impression: Dehydration UTI (urinary tract infection) Qualifiers: Urinary tract infection type: acute cystitis Hematuria presence: without hematuria Qualified Code(s): N30.00 - Acute cystitis without hematuria Right lower lobe pneumonia Qualifiers: Pneumonia type: due to unspecified organism Qualified Code(s): J18.1 - Lobar pneumonia, unspecified organism - Discharge Information
--- NOTE | 2018-02-03 14:48 | PCM.HP ---
H&P History of Present Illness - General Date of Service: 02/03/18 Admit Problem/Dx: Admission Diagnosis/Problem Admission Diagnosis/Problem Pneumonia Source of Information: Family, Provider. No: Patient History Limitations: Reports: Altered Mental Status (severe dementia ) - History of Present Illness Initial Comments - Free Text/Narative: Anitha presented to the emergency room this morning from [facility] after she was found in bed very lethargic and febrile to 103. She has advanced dementia and is unable to provide any history. History is gathered from her daughter, halfway notes and emergency room personnel. Per report she was up and about as usual yesterday and nothing out of the ordinary was noted. When staff tried to wake her up this morning she was very lethargic and essentially unresponsive. She was noted to be febrile and mildly hypoxic so she was sent to the emergency room for further evaluation. While in the emergency room she has been doing some coughing. Her temperature has come down. Workup has suggested both a right lower lung ammonia as well as a probable urinary tract infection. She has received a dose of levofloxacin. White blood cell count is elevated. She will be admitted for further management. - Related Data Allergies/Adverse Reactions: Allergies Allergy/AdvReac Type Severity Reaction Status Date / Time No Known Allergies Allergy Verified 02/03/18 11:48 Home Medications: Home Meds Acetaminophen 650 mg PO TID 03/23/17 [History] Alum Hydrox/Mag Hydrox/Simeth [Maalox Advanced] 15 ml PO Q6H PRN 03/23/17 [ History] Bimatoprost [LUMIGAN 0.01% Ophth Soln] 1 drop EYEBOTH BEDTIME 03/23/17 [History] Cyanocobalamin (Vitamin B-12) [Vitamin B-12] 1,000 mcg SL DAILY 03/23/17 [ History] Donepezil HCl 10 mg PO BEDTIME 03/23/17 [History] Ferrous Sulfate 325 mg PO DAILY 03/23/17 [History] Folic Acid 1 mg PO DAILY 03/23/17 [History] Lactose-Reduced Food [Ensure] 1 can PO BID 03/23/17 [History] Magnesium Hydroxide [Milk of Magnesia] 15 ml PO DAILY PRN 03/23/17 [History] Memantine [Namenda] 10 mg PO BID 03/23/17 [History] Mirtazapine 15 mg PO BEDTIME 03/23/17 [History] NIFEdipine [Adalat cc] 60 mg PO DAILY 03/23/17 [History] Polyethylene Glycol 3350 [MiraLAX] 17 gm PO DAILY PRN 03/23/17 [History] Triamcinolone Acetonide [Triamcinolone Acetonide 0.1% Crm] 1 gm TOP BID PRN [History] traZODone HCl [Trazodone HCl] 50 mg PO BEDTIME 03/23/17 [History] Pantoprazole [ProTONIX] 40 mg PO DAILY #30 tab.cr 05/25/17 [Rx] Gabapentin [Neurontin] 300 mg PO DAILY 08/30/17 [History] fentaNYL [Duragesic] 1 patch TOP ASDIRECTED 08/30/17 [History] Cephalexin 500 mg PO BID #6 capsule 09/01/17 [Rx] Melatonin 10 mg PO BEDTIME 02/03/18 [History] Past Medical History HEENT History: Reports: Hard of Hearing Other HEENT History: does not have hearing aid with. Cardiovascular History: Reports: Hypertension Gastrointestinal History: Reports: GERD, Hiatal Hernia Genitourinary History: Reports: UTI, Recurrent Musculoskeletal History: Reports: Back Pain, Chronic, Osteoarthritis 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, CVA, TIA Psychiatric History: Reports: Dementia, Depression Other Psychiatric History: paranoid and hallucinationations Hematologic History: Reports: Anemia, B12 Deficiency, Iron Deficiency - Infectious Disease History Infectious Disease History: Reports: Chicken Pox, Measles, Mumps - Past Surgical History GI Surgical History: Reports: Cholecystectomy Female Surgical History: Reports: Hysterectomy Other Female Surgeries/Procedures: bladder suspension Social & Family History - Family History Family Medical History: Noncontributory - Caffeine Use Caffeine Use: Reports: Coffee - Recreational Drug Use Recreational Drug Use: No - Living Situation & Occupation Living situation: Reports: Extended Care Facility (prior to onset of Dementia, 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 Has 3 children; 2 daughters 1 son. Daughter Yoly has P.O.A.) Occupation: Disabled H&P Review of Systems - Review of Systems: Review Of Systems: Unable To Obtain (severe dementia, does not communicate) Exam - Exam Exam: See Below - Vital Signs Vital Signs: Last Vital Signs Temp 36.9 C 02/03/18 13:36 Pulse 102 H 02/03/18 13:36 Resp 12 02/03/18 13:36 BP 161/91 H 02/03/18 13:36 Pulse Ox 96 02/03/18 13:36 Weight: 58.967 kg - Exam Quality Assessment: Supplemental Oxygen General: Alert, Cooperative. No: Oriented, Mild Distress HEENT: Conjunctiva Clear. No: Mucosa Moist & [place] (dry), Scleral Icterus Neck: Supple, Trachea Midline. No: Lymphadenopathy Lungs: Normal Respiratory Effort, Crackles (right lung base) Cardiovascular: Regular Rate, Regular Rhythm. No: Systolic Murmur GI/Abdominal Exam: Normal Bowel Sounds, Soft, Non-Tender, No Distention, No Mass Extremities: No Pedal Edema. No: Increased Warmth Peripheral Pulses: 2+: Dorsalis Pedis (L), Dorsalis Pedis (R) Skin: Warm, Dry Neuro Extensive - Mental Status: Alert, Memory Loss-Remote Events, Memory Loss- Recent Events. No: Oriented x3 Neuro Extensive - Motor, Sensory, Reflexes: No: Dysarthria, Abnormal Motor, Tremor Psychiatric: Alert. No: Anxious - Patient Data Lab Results Last 24 hrs: Laboratory Results - last 24 hr 02/03/18 02/03/18 02/03/18 Range/Units 11:23 11:23 11:50 WBC 15.9 H (4.5-11.0) K/uL RBC 4.26 (3.30-5.50) M/uL Hgb 12.7 D (12.0-15.0) g/dL Hct 39.0 (36.0-48.0) % MCV 92 (80-98) fL MCH 30 (27-31) pg MCHC 33 (32-36) % Plt Count 399 (150-400) K/uL Neut % (Auto) 92 H (36-66) % Lymph % (Auto) 3 L (24-44) % [place] % (Auto) 5 (2-6) % Eos % (Auto) 0 L (2-4) % Baso % (Auto) 0 (0-1) % Sodium 141 (140-148) mmol/L Potassium 3.9 (3.6-5.2) mmol/L Chloride 103 (100-108) mmol/L Carbon Dioxide 32 (21-32) mmol/L Anion Gap 5.8 (5.0-14.0) mmol/L BUN 9 (7-18) mg/dL Creatinine 0.9 (0.6-1.0) mg/dL Est Cr Clr Drug Dosing TNP Estimated GFR (MDRD) > 60 (>60) Glucose 105 (74-106) mg/dL Lactic Acid (0.4-2.0) mmol/L Calcium 8.9 (8.5-10.1) mg/dL Total Bilirubin 0.4 (0.2-1.0) mg/dL AST 17 (15-37) U/L ALT 15 (12-78) U/L Alkaline Phosphatase 70 (46-116) U/L Total Protein 7.0 (6.4-8.2) g/dL Albumin 3.4 (3.4-5.0) g/dL Globulin 3.6 H (2.3-3.5) g/dL Albumin/Globulin Ratio 0.9 L (1.2-2.2) Urine Color Yellow Urine Appearance Slightly cloudy Urine pH 8.0 (4.5-8.0) Ur Specific [place] 1.015 (1.008-1.030) Urine Protein Negative (NEGATIVE) mg/dL Urine Glucose (UA) Normal (NEGATIVE) mg/dL Urine Ketones Negative (NEGATIVE) mg/dL Urine Occult Blood Negative (NEGATIVE) Urine Nitrite Positive H (NEGATIVE) Urine Bilirubin Negative (NEGATIVE) Urine Urobilinogen Normal (NORMAL) mg/dL Ur Leukocyte Esterase Negative (NEGATIVE) Urine RBC 0-5 (0-5) Urine WBC 5-10 H (0-5) Ur Epithelial Cells Rare Amorphous Sediment Not seen Urine Bacteria Many Urine Mucus Not seen 02/03/18 Range/Units 12:50 WBC (4.5-11.0) K/uL RBC (3.30-5.50) M/uL Hgb (12.0-15.0) g/dL Hct (36.0-48.0) % MCV (80-98) fL MCH (27-31) pg MCHC (32-36) % Plt Count (150-400) K/uL Neut % (Auto) (36-66) % Lymph % (Auto) (24-44) % [place] % (Auto) (2-6) % Eos % (Auto) (2-4) % Baso % (Auto) (0-1) % Sodium (140-148) mmol/L Potassium (3.6-5.2) mmol/L Chloride (100-108) mmol/L Carbon Dioxide (21-32) mmol/L Anion Gap (5.0-14.0) mmol/L BUN (7-18) mg/dL Creatinine (0.6-1.0) mg/dL Est Cr Clr Drug Dosing Estimated GFR (MDRD) (>60) Glucose (74-106) mg/dL Lactic Acid 1.3 (0.4-2.0) mmol/L Calcium (8.5-10.1) mg/dL Total Bilirubin (0.2-1.0) mg/dL AST (15-37) U/L ALT (12-78) U/L Alkaline Phosphatase (46-116) U/L Total Protein (6.4-8.2) g/dL Albumin (3.4-5.0) g/dL Globulin (2.3-3.5) g/dL Albumin/Globulin Ratio (1.2-2.2) Urine Color Urine Appearance Urine pH (4.5-8.0) Ur Specific [place] (1.008-1.030) Urine Protein (NEGATIVE) mg/dL Urine Glucose (UA) (NEGATIVE) mg/dL Urine Ketones (NEGATIVE) mg/dL Urine Occult Blood (NEGATIVE) Urine Nitrite (NEGATIVE) Urine Bilirubin (NEGATIVE) Urine Urobilinogen (NORMAL) mg/dL Ur Leukocyte Esterase (NEGATIVE) Urine RBC (0-5) Urine WBC (0-5) Ur Epithelial Cells Amorphous Sediment Urine Bacteria Urine Mucus Result Diagrams: 02/03/18 11:23 02/03/18 11:23 Imaging Impressions Last 24 hrs: CXR - images personally reviewed - there is a right lower lung infiltrate. No mass or effusion. Heart size is normal. *Q Meaningful Use (ADM) - VTE Risk Assess *Q Each Risk Factor Represents 1 Point: Serious lung disease including pneumonia Total Score 1 Point Risk Factors: 1 Each Risk Factor Represents 2 Points: None Total Score 2 Point Risk Factors: 0 Each Risk Factor Represents 3 Points: Age 75 Years or Greater Total Score 3 Point Risk Factors: 3 Each Risk Factor Represents 5 Points: None Total Score 5 Point Risk Factors: 0 Venous Thromboembolism Risk Factor Score *Q: 4 - Problem List (1) UTI (urinary tract infection) SNOMED Code(s): 24463321 ICD Code: N39.0 - URINARY TRACT INFECTION, SITE NOT SPECIFIED Status: Acute Current Visit: Yes Qualifiers: Urinary tract infection type: acute cystitis Hematuria presence: without hematuria Qualified Code(s): N30.00 - Acute cystitis without hematuria (2) Right lower lobe pneumonia SNOMED Code(s): 074415783 ICD Code: J18.1 - LOBAR PNEUMONIA, UNSPECIFIED ORGANISM Status: Acute Current Visit: Yes Qualifiers: Pneumonia type: due to unspecified organism Qualified Code(s): J18.1 - Lobar pneumonia, unspecified organism (3) Dementia with behavioral disturbance SNOMED Code(s): 7055473445888 ICD Code: F03.91 - UNSPECIFIED DEMENTIA WITH BEHAVIORAL DISTURBANCE Status : Chronic Priority: High Current Visit: No Qualifiers: Dementia type: Alzheimer's disease Alzheimer's disease onset: late-onset Qualified Code(s): G30.1 - Alzheimer's disease with late onset; F02.81 - Dementia in other diseases classified elsewhere with behavioral disturbance (4) Palliative care status SNOMED Code(s): 993741568 ICD Code: Z51.5 - ENCOUNTER FOR PALLIATIVE CARE Status: Acute Priority: Medium Current Visit: No Problem List Initiated/Reviewed/Updated: Yes Orders Last 24hrs: Active Orders 24 hr Category Date Time Status Patient Status Manage Transfer [TRANSFER] Routine ADT 02/03/18 14:35 Ordered CULTURE BLOOD [BC] Urgent Lab 02/03/18 11:35 Received CULTURE BLOOD [BC] Urgent Lab 02/03/18 11:41 Received CULTURE URINE [RM] Stat Lab 02/03/18 12:06 Received UA W/MICROSCOPIC [URIN] Urgent Lab 02/03/18 11:50 Ordered Sodium Chloride 0.9% [Normal Saline] 1,000 ml Med 02/03/18 11:30 Active IV ASDIRECTED Sodium Chloride 0.9% [Normal Saline] 1,000 ml Med 02/03/18 13:45 Active IV ASDIRECTED Blood Culture x2 Reflex Set [OM.PC] Urgent Oth 02/03/18 11:29 Ordered Resuscitation Status Routine Resus Stat 02/03/18 14:38 Ordered Medication Orders Sodium Chloride (Normal Saline) 1,000 mls @ 500 mls/hr IV ASDIRECTED JA Last Admin: 02/03/18 12:13 Dose: 500 mls/hr Sodium Chloride (Normal Saline) 1,000 mls @ 500 mls/hr IV ASDIRECTED [facility] Last Admin: 02/03/18 14:41 Dose: 500 mls/hr Assessment/Plan Comment:: ASSESSMENT AND PLAN - Right lower lobe pneumonia with hypoxic respiratory failure - chest x-ray suggest right lung infiltrate and patient does have a cough and crackles in the right lower lung. She is requiring a small amount of supplemental oxygen. -Levofloxacin -Supplement oxygen -Nebulizers as needed Probable recurrent urinary tract infection - history of multiple infections in the past. Urine sample compatible with infection with positive nitrates and many bacteria. -Levofloxacin -Follow-up urine culture -Gentle fluids overnight Alzheimer's dementia with behavioral disturbance - no major issues with behavior at this time but she does have a history of behavior difficulties. Minimally interactive at this time. -Continue outpatient medication -Melatonin at bedtime -Consider Haldol if she has significant agitation Encounter for palliative care - patient's advance directive states that she does not want heroic or invasive measures performed. Family is okay with her receiving IV fluids and IV antibiotics but do not want aggressive measures. Maintenance issues - - DVT prophylaxis - SCDs - GI prophylaxis - PPI - Nutrition - mechanical soft diet - Downs catheter - not indicated CODE STATUS - DNR/DNI Admission justification - This patient will be admitted for inpatient services and is medically appropriate meeting medical necessity for inpatient admission as outlined in my documentation. I reasonably expect the patient will require inpatient services that span a period time over 2 midnights. I reasonably expect this patient to be discharged or transferred within 96 hours [facility]. Disposition - anticipate discharge back to [facility] after the hospital stay Primary care physician - Morris Amaro M.D.
[2018-02-03] MEDS ORDERED: Ondansetron 4 MG Tab.DIS PO PRN (15:46)
[2018-02-03] MEDS ORDERED: guaiFENesin/Dextromethorphan 100-10 MG/5 ML Soln 10 ML Cup PO PRN (15:46)
[2018-02-03] MEDS ORDERED: Albuterol 0.083% 2.5 MG/3 ML Neb Soln NEB PRN (15:46)
[2018-02-03] MEDS ORDERED: Polyethylene Glycol 3350 Powder 238 GM Bot PO PRN (15:46)
[2018-02-03] MEDS ORDERED: Polyethylene Glycol 3350 Powder 17 GM Packet PO PRN (15:46)
[2018-02-03] MEDS: VERIFY FENTANYL PATCH TOP SCH ×2 (16:29→22:24)
[2018-02-03] MEDS: Sodium Chloride 0.9% 1,000 ML IV SCH (20:18)
[2018-02-03] MEDS: Mirtazapine 15 MG Tab PO SCH (22:25)
[2018-02-03] MEDS: Acetaminophen 325 MG Tab PO SCH (22:25)
[2018-02-03] MEDS: Memantine 10 MG Tab PO SCH (22:25)
[2018-02-03] MEDS: Donepezil 10 MG Tab PO SCH (22:25)
[2018-02-03] MEDS: traZODone 50 MG Tab PO SCH (22:25)
[2018-02-03] MEDS: Melatonin 3 MG Tab PO SCH (22:25)
[2018-02-03] MEDS: Latanoprost 0.005% Ophth Soln 2.5 ML Bottle EYEBOTH SCH (22:26)
[2018-02-04] MEDS: Sodium Chloride 0.9% 1,000 ML IV SCH (06:18)
[2018-02-04] MEDS: Pantoprazole 40 MG Tab.CR PO SCH (07:19)
[2018-02-04] MEDS: Cyanocobalamin (Vitamin B12) 1,000 MCG Tab PO SCH ×2 (08:14→08:26)
[2018-02-04] MEDS: Levofloxacin 500 MG Tab PO SCH ×2 (08:14→08:25)
[2018-02-04] MEDS: Folic Acid 1 MG Tab PO SCH ×2 (08:14→08:25)
[2018-02-04] MEDS: Gabapentin 300 MG Cap PO SCH ×2 (08:14→08:26)
[2018-02-04] MEDS: NIFEdipine 30 MG Tab.ER PO SCH ×2 (08:14→08:26)
[2018-02-04] MEDS: Acetaminophen 325 MG Tab PO SCH ×4 (08:14→21:11)
[2018-02-04] MEDS: Levofloxacin 250 MG Tab PO SCH ×2 (08:14→08:25)
[2018-02-04] MEDS: Memantine 10 MG Tab PO SCH ×3 (08:14→21:13)
[2018-02-04] MEDS: VERIFY FENTANYL PATCH TOP SCH ×2 (08:15→21:21)
[2018-02-04] MEDS ORDERED: fentaNYL 12 MCG/HR Transdermal Patch TOP SCH (09:00)
--- NOTE | 2018-02-04 10:56 | PCM.PN ---
- General Info Date of Service: 02/04/18 Functional Status: Reports: Pain Controlled, Tolerating Diet - Review of Systems General: Denies: Fever Neurological: Reports: Confusion Systems Review Comment:: There were no acute events overnight. Patient does not participate in any conversation this morning but will look at me when I ask questions. Heart rate has improved with IV fluids. She has not had any fevers overnight. Urine culture is growing a gram-negative rods with identification pending. - Patient Data Vitals - Most Recent: Last Vital Signs Temp 36.1 C 02/04/18 07:00 Pulse 65 02/04/18 07:00 Resp 16 02/04/18 07:00 BP 151/64 H 02/04/18 07:00 Pulse Ox 94 L 02/04/18 07:00 Weight - Most Recent: 56.79 kg I&O - Last 24 Hours: Intake & Output 02/03/18 02/04/18 02/04/18 22:59 06:59 14:59 Intake Total 30 1497 150 Balance 30 1497 150 Lab Results Last 24 Hours: Laboratory Results - last 24 hr 02/03/18 02/03/18 02/03/18 Range/Units 11:23 11:23 11:50 WBC 15.9 H (4.5-11.0) K/uL RBC 4.26 (3.30-5.50) M/uL Hgb 12.7 D (12.0-15.0) g/dL Hct 39.0 (36.0-48.0) % MCV 92 (80-98) fL MCH 30 (27-31) pg MCHC 33 (32-36) % Plt Count 399 (150-400) K/uL Neut % (Auto) 92 H (36-66) % Lymph % (Auto) 3 L (24-44) % Ballard % (Auto) 5 (2-6) % Eos % (Auto) 0 L (2-4) % Baso % (Auto) 0 (0-1) % Sodium 141 (140-148) mmol/L Potassium 3.9 (3.6-5.2) mmol/L Chloride 103 (100-108) mmol/L Carbon Dioxide 32 (21-32) mmol/L Anion Gap 5.8 (5.0-14.0) mmol/L BUN 9 (7-18) mg/dL Creatinine 0.9 (0.6-1.0) mg/dL Est Cr Clr Drug Dosing TNP Estimated GFR (MDRD) > 60 (>60) Glucose 105 (74-106) mg/dL Lactic Acid (0.4-2.0) mmol/L Calcium 8.9 (8.5-10.1) mg/dL Total Bilirubin 0.4 (0.2-1.0) mg/dL AST 17 (15-37) U/L ALT 15 (12-78) U/L Alkaline Phosphatase 70 (46-116) U/L Total Protein 7.0 (6.4-8.2) g/dL Albumin 3.4 (3.4-5.0) g/dL Globulin 3.6 H (2.3-3.5) g/dL Albumin/Globulin Ratio 0.9 L (1.2-2.2) Urine Color Yellow Urine Appearance Slightly cloudy Urine pH 8.0 (4.5-8.0) Ur Specific Burton 1.015 (1.008-1.030) Urine Protein Negative (NEGATIVE) mg/dL Urine Glucose (UA) Normal (NEGATIVE) mg/dL Urine Ketones Negative (NEGATIVE) mg/dL Urine Occult Blood Negative (NEGATIVE) Urine Nitrite Positive H (NEGATIVE) Urine Bilirubin Negative (NEGATIVE) Urine Urobilinogen Normal (NORMAL) mg/dL Ur Leukocyte Esterase Negative (NEGATIVE) Urine RBC 0-5 (0-5) Urine WBC 5-10 H (0-5) Ur Epithelial Cells Rare Amorphous Sediment Not seen Urine Bacteria Many Urine Mucus Not seen 02/03/18 02/04/18 02/04/18 Range/Units 12:50 06:00 06:00 WBC 19.4 H (4.5-11.0) K/uL RBC 3.41 (3.30-5.50) M/uL Hgb 10.1 L D (12.0-15.0) g/dL Hct 31.4 L (36.0-48.0) % MCV 92 (80-98) fL MCH 30 (27-31) pg MCHC 32 (32-36) % Plt Count 294 (150-400) K/uL Neut % (Auto) (36-66) % Lymph % (Auto) (24-44) % Ballard % (Auto) (2-6) % Eos % (Auto) (2-4) % Baso % (Auto) (0-1) % Sodium 143 (140-148) mmol/L Potassium 3.7 (3.6-5.2) mmol/L Chloride 108 (100-108) mmol/L Carbon Dioxide 29 (21-32) mmol/L Anion Gap 6.2 (5.0-14.0) mmol/L BUN 9 (7-18) mg/dL Creatinine 0.7 (0.6-1.0) mg/dL Est Cr Clr Drug Dosing 56.91 Estimated GFR (MDRD) > 60 (>60) Glucose 90 (74-106) mg/dL Lactic Acid 1.3 (0.4-2.0) mmol/L Calcium 8.0 L (8.5-10.1) mg/dL Total Bilirubin (0.2-1.0) mg/dL AST (15-37) U/L ALT (12-78) U/L Alkaline Phosphatase (46-116) U/L Total Protein (6.4-8.2) g/dL Albumin (3.4-5.0) g/dL Globulin (2.3-3.5) g/dL Albumin/Globulin Ratio (1.2-2.2) Urine Color Urine Appearance Urine pH (4.5-8.0) Ur Specific Burton (1.008-1.030) Urine Protein (NEGATIVE) mg/dL Urine Glucose (UA) (NEGATIVE) mg/dL Urine Ketones (NEGATIVE) mg/dL Urine Occult Blood (NEGATIVE) Urine Nitrite (NEGATIVE) Urine Bilirubin (NEGATIVE) Urine Urobilinogen (NORMAL) mg/dL Ur Leukocyte Esterase (NEGATIVE) Urine RBC (0-5) Urine WBC (0-5) Ur Epithelial Cells Amorphous Sediment Urine Bacteria Urine Mucus Hong Results Last 24 Hours: Microbiology 02/03/18 12:06 Urine Culture - Preliminary Urine, Bladder Med Orders - Current: Current Medications Acetaminophen (Tylenol) 650 mg PO TID [facility] Last Admin: 02/04/18 08:14 Dose: 650 mg Albuterol (Proventil Neb Soln) 2.5 mg NEB Q4H PRN PRN Reason: Shortness Of Breath/wheezing Cyanocobalamin (Vitamin B12) 1,000 mcg PO DAILY [facility] Last Admin: 02/04/18 08:26 Dose: Not Given Donepezil HCl (Aricept) 10 mg PO BEDTIME [facility] Last Admin: 02/03/18 22:25 Dose: 10 mg Fentanyl (Duragesic) 12 mcg TOP Q48H [facility] Folic Acid (Folic Acid) 1 mg PO DAILY [facility] Last Admin: 02/04/18 08:25 Dose: Not Given Gabapentin (Neurontin) 300 mg PO DAILY [facility] Last Admin: 02/04/18 08:26 Dose: Not Given Guaifenesin/Dextromethorphan (Robitussin Dm) 10 ml PO Q4H PRN PRN Reason: Cough Latanoprost (Xalatan 0.005% Ophth Soln) 0 ml EYEBOTH BEDTIME [facility] Last Admin: 02/03/18 22:26 Dose: 1 drop Levofloxacin (Levaquin) 500 mg PO Q24H [facility] Last Admin: 02/04/18 08:25 Dose: Not Given Levofloxacin (Levaquin) 250 mg PO Q24H [facility] Last Admin: 02/04/18 08:25 Dose: Not Given Melatonin (Melatonin) 9 mg PO BEDTIME [facility] Last Admin: 02/03/18 22:25 Dose: 9 mg Memantine (Namenda) 10 mg PO BID [facility] Last Admin: 02/04/18 08:25 Dose: Not Given Mirtazapine (Remeron) 15 mg PO BEDTIME [facility] Last Admin: 02/03/18 22:25 Dose: 15 mg Nifedipine (Procardia Xl) 60 mg PO DAILY [facility] Last Admin: 02/04/18 08:26 Dose: Not Given Verify Fentanyl (Patch) 0 each TOP BID [facility] Last Admin: 02/04/18 08:15 Dose: Not Given Ondansetron HCl (Zofran Odt) 4 mg PO Q6H PRN PRN Reason: Nausea able to take PO Pantoprazole Sodium (Protonix) 40 mg PO DAILY@0730 [facility] Last Admin: 02/04/18 07:19 Dose: 40 mg Polyethylene Glycol (Miralax) 17 gm PO DAILY PRN PRN Reason: Constipation Senna/Docusate Sodium (Senna Plus) 1 tab PO BID PRN PRN Reason: Constipation Trazodone HCl (Trazodone) 50 mg PO BEDTIME [facility] Last Admin: 02/03/18 22:25 Dose: 50 mg Discontinued Medications Acetaminophen (Tylenol) 650 mg RECTAL NOW ONE Stop: 02/03/18 13:21 Last Admin: 02/03/18 13:32 Dose: 650 mg Sodium Chloride (Normal Saline) 1,000 mls @ 500 mls/hr IV ASDIRECTED [facility] Last Admin: 02/03/18 12:13 Dose: 500 mls/hr Levofloxacin/Dextrose 500 mg/ (Premix) 100 mls @ 100 mls/hr IV ONETIME ONE Stop: 02/03/18 13:06 Last Admin: 02/03/18 12:29 Dose: 100 mls/hr Sodium Chloride (Normal Saline) 1,000 mls @ 500 mls/hr IV ASDIRECTED [facility] Last Admin: 02/03/18 14:41 Dose: 500 mls/hr Sodium Chloride (Normal Saline) 1,000 mls @ 100 mls/hr IV ASDIRECTED [facility] Last Admin: 02/04/18 06:18 Dose: 100 mls/hr - Exam Quality Assessment: No: Supplemental Oxygen General: Alert, Cooperative, No Acute Distress. No: Oriented HEENT: Pupils Equal Neck: Supple Lungs: Normal Respiratory Effort, Crackles (rare right lower lung) Cardiovascular: Regular Rate, Regular Rhythm GI/Abdominal Exam: Normal Bowel Sounds, Soft, Non-Tender Extremities: No Pedal Edema Psy/Mental Status: Alert. No: Anxious - Problem List & Annotations (1) UTI (urinary tract infection) SNOMED Code(s): 53581204 Code(s): N39.0 - URINARY TRACT INFECTION, SITE NOT SPECIFIED Status: Acute Current Visit: Yes Qualifiers: Urinary tract infection type: acute cystitis Hematuria presence: without hematuria Qualified Code(s): N30.00 - Acute cystitis without hematuria (2) Right lower lobe pneumonia SNOMED Code(s): 670253496 Code(s): J18.1 - LOBAR PNEUMONIA, UNSPECIFIED ORGANISM Status: Acute Current Visit: Yes Qualifiers: Pneumonia type: due to unspecified organism Qualified Code(s): J18.1 - Lobar pneumonia, unspecified organism (3) Dementia with behavioral disturbance SNOMED Code(s): 7800862605070 Code(s): F03.91 - UNSPECIFIED DEMENTIA WITH BEHAVIORAL DISTURBANCE Status: Chronic Priority: High Current Visit: No Qualifiers: Dementia type: Alzheimer's disease Alzheimer's disease onset: late-onset Qualified Code(s): G30.1 - Alzheimer's disease with late onset; F02.81 - Dementia in other diseases classified elsewhere with behavioral disturbance (4) Palliative care status SNOMED Code(s): 043888196 Code(s): Z51.5 - ENCOUNTER FOR PALLIATIVE CARE Status: Chronic Priority: Medium Current Visit: No - Problem List Review Problem List Initiated/Reviewed/Updated: Yes - My Orders Last 24 Hours: My Active Orders 02/03/18 14:38 Resuscitation Status Routine 02/03/18 15:46 Patient Status [ADT] Routine Bedrest Bedside Commode [RC] ASDIRECTED Notify Provider Vital Signs [RC] ASDIRECTED Oxygen Therapy [RC] PRN RT Aerosol Therapy [RC] ASDIRECTED Up With Assistance [RC] ASDIRECTED VTE/DVT Education [RC] Per Unit Routine Vital Signs [RC] Q4H Albuterol [Proventil Neb Soln] 2.5 mg NEB Q4H PRN Dextromethorphan/guaiFENesin [Robitussin DM] 10 ml PO Q4H PRN Docusate Sodium/Sennosides [Senna Plus] 1 tab PO BID PRN Ondansetron [Zofran ODT] 4 mg PO Q6H PRN Polyethylene Glycol 3350 [MiraLAX] 17 gm PO DAILY PRN Sodium Chloride 0.9% [Normal Saline] 1,000 ml IV ASDIRECTED Sequential Compression Device [OM.PC] Per Unit Routine 02/03/18 16:00 Non-Formulary Medication [NF Drug] 0 each TOP BID 02/03/18 21:00 Acetaminophen [Tylenol] 650 mg PO TID Donepezil [Aricept] 10 mg PO BEDTIME Latanoprost [Xalatan 0.005% Ophth Soln] 0 ml EYEBOTH BEDTIME Melatonin 9 mg PO BEDTIME Memantine [Namenda] 10 mg PO BID Mirtazapine [Remeron] 15 mg PO BEDTIME traZODone 50 mg PO BEDTIME 02/03/18 Dinner Mechanical Soft Diet [DIET] 02/04/18 07:30 Pantoprazole [ProTONIX] 40 mg PO DAILY@0730 02/04/18 09:00 Cyanocobalamin (Vitamin B12) [Vitamin B12] 1,000 mcg PO DAILY Folic Acid 1 mg PO DAILY Gabapentin [Neurontin] 300 mg PO DAILY Levofloxacin [Levaquin] 250 mg PO Q24H Levofloxacin [Levaquin] 500 mg PO Q24H NIFEdipine [Procardia XL] 60 mg PO DAILY fentaNYL [Duragesic] 12 mcg TOP Q48H 02/04/18 10:55 Convert IV to Saline Lock [OM.PC] Routine 02/05/18 05:00 BASIC METABOLIC PANEL,BMP [CHEM] Timed CBC W/O DIFF,HEMOGRAM [HEME] Timed (1) - Plan Plan:: ASSESSMENT AND PLAN - Right lower lobe pneumonia with hypoxic respiratory failure - chest x-ray suggest right lung infiltrate and patient does have a cough and crackles in the right lower lung. She is off oxygen as of this morning. -Levofloxacin -Supplement oxygen if needed -Nebulizers as needed Probable recurrent urinary tract infection - history of multiple infections in the past. Urine sample compatible with infection and culture is growing a gram- negative rods with identification pending. -Levofloxacin -Follow-up urine culture -Saline lock IV Alzheimer's dementia with behavioral disturbance - no major issues with behavior at this time but she does have a history of behavior difficulties. Minimally interactive at this time. -Continue outpatient medication -Melatonin at bedtime -Consider Haldol if she has significant agitation Encounter for palliative care - patient's advance directive states that she does not want heroic or invasive measures performed. Family is okay with her receiving IV fluids and IV antibiotics but do not want aggressive measures. Maintenance issues - - DVT prophylaxis - SCDs - GI prophylaxis - PPI - Nutrition - mechanical soft diet Disposition - anticipate discharge back to [facility] after the hospital stay Santino Amaro M.D.
[2018-02-04] MEDS: Melatonin 3 MG Tab PO SCH (21:10)
[2018-02-04] MEDS: Latanoprost 0.005% Ophth Soln 2.5 ML Bottle EYEBOTH SCH (21:12)
[2018-02-04] MEDS: traZODone 50 MG Tab PO SCH (21:13)
[2018-02-04] MEDS: Mirtazapine 15 MG Tab PO SCH (21:13)
[2018-02-04] MEDS: Donepezil 10 MG Tab PO SCH (21:14)
[2018-02-05] MEDS: Pantoprazole 40 MG Tab.CR PO SCH (07:59)
[2018-02-05] MEDS: Folic Acid 1 MG Tab PO SCH (08:00)
[2018-02-05] MEDS: Memantine 10 MG Tab PO SCH (08:01)
[2018-02-05] MEDS: Levofloxacin 250 MG Tab PO SCH (08:01)
[2018-02-05] MEDS: Levofloxacin 500 MG Tab PO SCH (08:01)
[2018-02-05] MEDS: Gabapentin 300 MG Cap PO SCH (08:01)
[2018-02-05] MEDS: VERIFY FENTANYL PATCH TOP SCH (08:02)
[2018-02-05] MEDS: NIFEdipine 30 MG Tab.ER PO SCH (08:02)
[2018-02-05] MEDS: Acetaminophen 325 MG Tab PO SCH (08:06)
[2018-02-05] MEDS: Cyanocobalamin (Vitamin B12) 1,000 MCG Tab PO SCH (08:06)
[2018-02-05 08:31] VITALS: BP 145/76
[2018-02-05] MEDS ORDERED: Potassium Chloride 20 MEQ Tab.ER PO ONE (09:00)
--- NOTE | 2018-02-05 11:01 | PCM.DCSUM1 ---
Discharge Summary - Hospital Course Brief History: 82-year-old female with recurrent urinary tract infections and advanced Alzheimer's dementia who presented with lethargy and fever. She was admitted for management of both a right lower lobe pneumonia and urinary tract infection. - Discharge Data Discharge Date: 02/05/18 Discharge Disposition: Home, Self-Care 01 Condition: Fair - Discharge Diagnosis/Problem(s) (1) UTI (urinary tract infection) SNOMED Code(s): 58061991 ICD Code: N39.0 - URINARY TRACT INFECTION, SITE NOT SPECIFIED Status: Acute Qualifiers: Urinary tract infection type: acute cystitis Hematuria presence: without hematuria Qualified Code(s): N30.00 - Acute cystitis without hematuria (2) Right lower lobe pneumonia SNOMED Code(s): 570723928 ICD Code: J18.1 - LOBAR PNEUMONIA, UNSPECIFIED ORGANISM Status: Acute Qualifiers: Pneumonia type: due to unspecified organism Qualified Code(s): J18.1 - Lobar pneumonia, unspecified organism (3) Dementia with behavioral disturbance SNOMED Code(s): 9913827573875 ICD Code: F03.91 - UNSPECIFIED DEMENTIA WITH BEHAVIORAL DISTURBANCE Status : Chronic Priority: High Qualifiers: Dementia type: Alzheimer's disease Alzheimer's disease onset: late-onset Qualified Code(s): G30.1 - Alzheimer's disease with late onset; F02.81 - Dementia in other diseases classified elsewhere with behavioral disturbance (4) Palliative care status SNOMED Code(s): 300145727 ICD Code: Z51.5 - ENCOUNTER FOR PALLIATIVE CARE Status: Chronic Priority : Medium - Patient Summary/Data Hospital Course: Anitha presented to the emergency room with fever and lethargy. Workup in the emergency room suggested probable right lower lobe pneumonia as well as urinary tract infection. She was initially hypoxic and required supplemental oxygen. She was started on levofloxacin after cultures were obtained and she was admitted for further management. By the morning after admission we were able to wean off the supplemental oxygen. She has not had much of a cough. The morning after admission her urine culture was growing a gram-negative joaquin. She remained stable throughout the day. By the morning of discharge her urine culture has returned and is growing a pansensitive Escherichia coli. She has not required supplemental oxygen. She has not had any fevers. She appears to be back to her baseline at this time. She is safe for outpatient management and will be discharge back to the memory care unit. She will receive 2 additional doses of antibiotic therapy. - Patient Instructions Diet: Regular Diet as Tolerated Activity: As Tolerated Showering/Bathing: May Shower Notify Provider of: Fever, Increased Pain Other/Special Instructions: 1. You were in the hospital for management of both right lower lobe pneumonia and a urinary tract infection. Your condition is improving with antibiotic therapy. I do recommend 2 additional doses of levofloxacin. You should take 750 mg once daily for 2 more days. Your next dose is due tomorrow morning. 2. Continue your other home medications as previously prescribed. 3. Code status - DNR/DNI. 4. Seek medical attention if you develop fever greater than 101, have severe abdominal pain, persistent vomiting or severe diarrhea. - Discharge Plan Prescriptions/Med Rec: Levofloxacin 750 mg PO DAILY #2 tablet Home Medications: Home Meds Acetaminophen 650 mg PO TID 03/23/17 [History] Alum Hydrox/Mag Hydrox/Simeth [Maalox Advanced] 15 ml PO Q6H PRN 03/23/17 [ History] Bimatoprost [LUMIGAN 0.01% Ophth Soln] 1 drop EYEBOTH BEDTIME 03/23/17 [History] Cyanocobalamin (Vitamin B-12) [Vitamin B-12] 1,000 mcg SL DAILY 03/23/17 [ History] Donepezil HCl 10 mg PO BEDTIME 03/23/17 [History] Ferrous Sulfate 325 mg PO DAILY 03/23/17 [History] Folic Acid 1 mg PO DAILY 03/23/17 [History] Lactose-Reduced Food [Ensure] 1 can PO BID 03/23/17 [History] Magnesium Hydroxide [Milk of Magnesia] 15 ml PO DAILY PRN 03/23/17 [History] Memantine [Namenda] 10 mg PO BID 03/23/17 [History] Mirtazapine 15 mg PO BEDTIME 03/23/17 [History] NIFEdipine [Adalat cc] 60 mg PO DAILY 03/23/17 [History] Polyethylene Glycol 3350 [MiraLAX] 17 gm PO DAILY PRN 03/23/17 [History] Triamcinolone Acetonide [Triamcinolone Acetonide 0.1% Crm] 1 gm TOP BID PRN [History] traZODone HCl [Trazodone HCl] 50 mg PO BEDTIME 03/23/17 [History] Pantoprazole [ProTONIX] 40 mg PO DAILY #30 tab.cr 05/25/17 [Rx] Gabapentin [Neurontin] 300 mg PO DAILY 08/30/17 [History] fentaNYL [Duragesic] 1 patch TOP ASDIRECTED 08/30/17 [History] Cephalexin 500 mg PO BID #6 capsule 09/01/17 [Rx] Melatonin 10 mg PO BEDTIME 02/03/18 [History] Levofloxacin 750 mg PO DAILY #2 tablet 02/05/18 [Rx] Patient Handouts: Urinary Tract Infection, Adult, [id number], Levofloxacin tablets Referrals: PCP,None [Primary Care Provider] - (f/u as needed after the hospital stay ) - Discharge Summary/Plan Comment DC Time >30 min.: No (25) - Patient Data Vitals - Most Recent: Last Vital Signs Temp 36.2 C 02/05/18 08:31 Pulse 65 02/05/18 08:31 Resp 16 02/05/18 08:31 BP 145/76 H 02/05/18 08:31 Pulse Ox 92 L 02/05/18 08:31 Weight - Most Recent: 56.79 kg I&O - Last 24 hours: Intake & Output 02/04/18 02/05/18 02/05/18 22:59 06:59 14:59 Intake Total 360 Output Total 0 Balance 0 360 Lab Results - Last 24 hrs: Laboratory Results - last 24 hr 02/05/18 02/05/18 Range/Units 05:00 05:00 WBC 13.7 H (4.5-11.0) K/uL RBC 3.15 L (3.30-5.50) M/uL Hgb 9.3 L (12.0-15.0) g/dL Hct 29.0 L (36.0-48.0) % MCV 92 (80-98) fL MCH 30 (27-31) pg MCHC 32 (32-36) % Plt Count 274 (150-400) K/uL Sodium 143 (140-148) mmol/L Potassium 3.3 L (3.6-5.2) mmol/L Chloride 108 (100-108) mmol/L Carbon Dioxide 28 (21-32) mmol/L Anion Gap 10.3 (5.0-14.0) mmol/L BUN 9 (7-18) mg/dL Creatinine 0.7 (0.6-1.0) mg/dL Est Cr Clr Drug Dosing 57.47 mL/min Estimated GFR (MDRD) > 60 (>60) Glucose 85 (74-106) mg/dL Calcium 8.2 L (8.5-10.1) mg/dL AFSHAN Results - Last 24 hrs: Microbiology 02/03/18 12:06 Urine Culture - Final Urine, Bladder Escherichia Coli 02/03/18 11:41 Aerobic Blood Culture - Preliminary Blood - Arm, Right NO GROWTH AFTER 1 DAY Anaerobic Blood Culture - Preliminary NO GROWTH AFTER 1 DAY 02/03/18 11:35 Aerobic Blood Culture - Preliminary Blood - Venous - Iv Start NO GROWTH AFTER 1 DAY Anaerobic Blood Culture - Preliminary NO GROWTH AFTER 1 DAY Med Orders - Current: Current Medications Acetaminophen (Tylenol) 650 mg PO TID [facility] Last Admin: 02/05/18 08:06 Dose: 650 mg Albuterol (Proventil Neb Soln) 2.5 mg NEB Q4H PRN PRN Reason: Shortness Of Breath/wheezing Cyanocobalamin (Vitamin B12) 1,000 mcg PO DAILY [facility] Last Admin: 02/05/18 08:06 Dose: 1,000 mcg Donepezil HCl (Aricept) 10 mg PO BEDTIME [facility] Last Admin: 02/04/18 21:14 Dose: 10 mg Fentanyl (Duragesic) 12 mcg TOP Q48H [facility] Last Admin: 02/04/18 11:17 Dose: 12 mcg Folic Acid (Folic Acid) 1 mg PO DAILY [facility] Last Admin: 02/05/18 08:00 Dose: 1 mg Gabapentin (Neurontin) 300 mg PO DAILY [facility] Last Admin: 02/05/18 08:01 Dose: 300 mg Guaifenesin/Dextromethorphan (Robitussin Dm) 10 ml PO Q4H PRN PRN Reason: Cough Latanoprost (Xalatan 0.005% Ophth Soln) 0 ml EYEBOTH BEDTIME [facility] Last Admin: 02/04/18 21:12 Dose: 1 drop Levofloxacin (Levaquin) 500 mg PO Q24H [facility] Last Admin: 02/05/18 08:01 Dose: 500 mg Levofloxacin (Levaquin) 250 mg PO Q24H [facility] Last Admin: 02/05/18 08:01 Dose: 250 mg Melatonin (Melatonin) 9 mg PO BEDTIME [facility] Last Admin: 02/04/18 21:10 Dose: 9 mg Memantine (Namenda) 10 mg PO BID [facility] Last Admin: 02/05/18 08:01 Dose: 10 mg Mirtazapine (Remeron) 15 mg PO BEDTIME [facility] Last Admin: 02/04/18 21:13 Dose: 15 mg Nifedipine (Procardia Xl) 60 mg PO DAILY [facility] Last Admin: 02/05/18 08:02 Dose: 60 mg Verify Fentanyl (Patch) 0 each TOP BID [facility] Last Admin: 02/05/18 08:02 Dose: Not Given Ondansetron HCl (Zofran Odt) 4 mg PO Q6H PRN PRN Reason: Nausea able to take PO Pantoprazole Sodium (Protonix) 40 mg PO DAILY@0730 [facility] Last Admin: 02/05/18 07:59 Dose: 40 mg Polyethylene Glycol (Miralax) 17 gm PO DAILY PRN PRN Reason: Constipation Senna/Docusate Sodium (Senna Plus) 1 tab PO BID PRN PRN Reason: Constipation Trazodone HCl (Trazodone) 50 mg PO BEDTIME [facility] Last Admin: 02/04/18 21:13 Dose: 50 mg Discontinued Medications Acetaminophen (Tylenol) 650 mg RECTAL NOW ONE Stop: 02/03/18 13:21 Last Admin: 02/03/18 13:32 Dose: 650 mg Sodium Chloride (Normal Saline) 1,000 mls @ 500 [facility]ls[facility] Admin: 02/03/18 12:13 Dose: 500 mls/hr Levofloxacin/Dextrose 500 mg/ (Premix) 100 mls @ 100 mls/hr IV ONETIME ONE Stop: 02/03/18 13:06 Last Admin: 02/03/18 12:29 Dose: 100 mls/hr Sodium Chloride (Normal Saline) 1,000 mls @ 500 mls/hr IV ASDIRECTED [facility] Last Admin: 02/03/18 14:41 Dose: 500 mls/hr Sodium Chloride (Normal Saline) 1,000 mls @ 100 [facility]ls[facility] Last Admin: 02/04/18 06:18 Dose: 100 mls/hr Potassium Chloride (Klor-Con M20) 40 meq PO ONETIME ONE Stop: 02/05/18 09:01 Last Admin: 02/05/18 10:17 Dose: 40 meq - Exam Quality Assessment: Denies: Supplemental Oxygen General: Reports: Alert, Cooperative, No Acute Distress. Denies: Oriented Neck: Reports: Supple Lungs: Reports: Clear to Auscultation, Normal Respiratory Effort Cardiovascular: Reports: Regular Rate, Regular Rhythm GI/Abdominal Exam: Soft, No Distention Extremities: No Pedal Edema Psy/Mental Status: Reports: Alert, Normal Affect
== END 2018-02-05 13:05 | disposition home or self-care (01) | DRG 193 ==
LOC: JP.ED 11:20 → JP.MS 14:35
PROVIDERS: ADMIT Internal Medicine; ATTEND Internal Medicine
DX: J18.9 Pneumonia, unspecified organism (principal); E86.0 Dehydration; J96.91 Respiratory failure, unspecified with hypoxia; F02.81 Dementia in other diseases classified elsewhere, unspecified severity, with behavioral disturbance; N30.00 Acute cystitis without hematuria; B96.20 Unspecified Escherichia coli [E. coli] as the cause of diseases classified elsewhere; I10 Essential (primary) hypertension; Z66 Do not resuscitate; E53.8 Deficiency of other specified B group vitamins; F03.90 Unspecified dementia, unspecified severity, without behavioral disturbance, psychotic disturbance, mood disturbance, and anxiety; F32.9 Major depressive disorder, single episode, unspecified; Z51.5 Encounter for palliative care; K21.9 Gastro-esophageal reflux disease without esophagitis; K44.9 Diaphragmatic hernia without obstruction or gangrene; G89.29 Other chronic pain; G30.9 Alzheimer's disease, unspecified; E61.1 Iron deficiency; D64.9 Anemia, unspecified; M54.9 Dorsalgia, unspecified; Z86.73 Personal history of transient ischemic attack (TIA), and cerebral infarction without residual deficits; Z79.899 Other long term (current) drug therapy; Z87.440 Personal history of urinary (tract) infections
CPT/HCPCS: 36415; 71045 ×2; 80053; 81001; 83605; 85025; 87040 ×2; 87086; 87088; 87186; 96360; 96361; 99285; A9270; J1956; J7040; 80048; 85027